=== PATIENT | male | born 1945 | race Caucasian/White ===

== ENCOUNTER 2024-01-06 15:13 | Inpatient (IN) | payer MEDICARE, OTHER, SELFPAY ==
[2024-01-06 11:39] VITALS: BP 114/74
[2024-01-06 12:00] VITALS: BP 119/73
[2024-01-06] MEDS: MORPHINE SULFATE 4 MG IV (12:07)
[2024-01-06] MEDS: NSS 1000 IV ×2 (12:08→17:18)
[2024-01-06 12:10] LABS: % Basophils 0.3 % (0-2); % Immature Granulocytes 0.6 % (0-0.5); % Lymphocytes 9.4 % (20.5-51.1); % Monocytes 6.2 % (1.7-9.3); % Neutrophils 83.5 % (42.2-75.2); Absolute Immature Granulocytes 0.1 10^3/uL (0-0.05); Absolute Monocytes 0.6 10^3/uL (0.1-0.6); Absolute Neutrophils 8.5 10^3/uL (1.4-6.5); Hematocrit 40.6 % (39.0-52.0); Hemoglobin 13.4 g/dL (13.0-18.0); Mean Corpuscular Hgb 28.8 pg (27.0-31.0); Mean Corpuscular Volume 87.3 fL (80.0-94.0); Mean Platelet Volume 10.7 fL (7.4-10.4); Nucleated Red Blood Cells % 0 % (-); Platelet Count 170 10^3/uL (130-400); Red Blood Cell Count 4.65 10^6/uL (4.70-6.10); Red Cell Dist. Width 14.3 % (11.5-14.5); White Blood Cell Count 10.2 10^3/uL (4.8-10.8)
[2024-01-06 12:20] LABS: ALT (SGPT) 31 U/L (0-50); AST (SGOT) 64 U/L (17-59); Albumin 4.4 g/dl (3.5-5.0); Alkaline Phosphatase 71 U/L (38-126); Blood Urea Nitrogen 41 mg/dl (9-20); Calcium 9.3 mg/dl (8.4-10.2); Carbon Dioxide 17 mmol/L (22-30); Chloride 110 mmol/L (98-107); Glucose 163 mg/dl (70-99); Potassium 4.2 mmol/L (3.5-5.1); Sodium 147 mmol/L (135-145); Total Bilirubin 1.1 mg/dl (0.2-1.3); Total Protein 7.2 g/dl (6.3-8.2); eGFR 43.83
[2024-01-06 12:34] LABS: COVID-19 Antigen Negative (Negative)
[2024-01-06 12:53] LABS: Lactic Acid 1.4 mmol/L (0.7-2.0)
[2024-01-06 13:00] VITALS: BP 111/70
[2024-01-06 13:09] LABS: Urine Albumin 2+ (Neg - Trace); Urine Bilirubin 1+ (Negative); Urine Character Clear (Clear); Urine Color Yellow; Urine Glucose 3+ (Negative); Urine Ketone 2+ (Negative); Urine Leukocyte 2+ (Negative); Urine Nitrite Negative (Negative); Urine Occult Blood 4+ (Negative); Urine Specific Gravity 1.025 (<1.030); Urine Urobilinogen Negative (Neg - 1+)
--- NOTE | 2024-01-06 13:16 | ED.GENMED ---
History of Present Illness
General
Chief Complaint: Urinary Symptoms
Time Seen by Provider: 01/06/24 11:42
History of Present Illness
History of Present Illness:
78-year-old male with history of diabetes, hyperlipidemia, GERD, hypertension, chronic indwelling Cummins presenting from nursing facility with concern for cloudy urine. Patient reports that his catheter was changed 2 days ago by the nurse. He notes
that he has been feeling generally unwell, nonproductive cough, shortness of breath he is abdominal pain. Denies fever. Denies any chest pain. Denies any vomiting. Denies additional acute medical complaints
Past History
Past History
ED Past Medical History: CAD, GERD, HTN, Hypercholesterolemia, NIDDM, [place], Psychiatric (Anxiety/depression) and Other (Cognitive impairment)
ED Past Surgical History: Cardiac
Social History
Tobacco: Non-smoker
Alcohol: None
Drug: None
Living: retirement
Phy Exam
Physical Exam
Physical Exam:
General: Well-appearing, no clinical signs of dehydration
HEENT: protecting airway
Neck: appears supple
CV: Tachycardic, regular rhythm, no evidence of cyanosis
Resp: No accessory muscle use, no increased work of breathing, lungs clear to auscultation bilaterally
Abd: Soft and non-distended, generalized nonfocal tenderness without rebound or guarding
Extremities: No deformities, no swelling
Neuro: alert, no focal neurologic deficit
: Indwelling Cummins, draining yellow urine
Rectal: deferred
Psych: Normal affect
Skin: Intact
Sepsis
Sepsis Screening
Sepsis Assessment: Sepsis Ruled Out
Sepsis Screen
Sepsis Screen: Sepsis Ruled Out
Date: 01/06/24
Time: 14:13
Course
Orders/Labs/Results
Orders:
Orders
01/06/24 11:42
EKG [Electrocardiogram (*1)] Urgent
Reason for Study: Tachycardia
EKG- Treatment ONCE
01/06/24 11:47
COVID-19 Antigen Urgent
Source: Nasal Swab
Complete Blood Count/With Diff Urgent
Comprehensive Metabolic Panel Urgent
Lactate Level [Lactic Acid] Urgent
Urinalysis Reflex To Culture Urgent
Date Specimen was Collected: 01/06/24
Time Specimen was Collected: 11:39
Urine Microscopic Reflex Cult Urgent
Influenza A+B Rapid Molecular Urgent
SANDY Source: Nasal Swab
Specimen Description:
Urine Culture Urgent
SANDY Source: U
Specimen Description:
Date Specimen was Collected: 01/06/24
Time Specimen was Collected: 11:39
01/06/24 11:54
0.9% Sodium Chloride 1000 ml [Nss] 1,000 ml IV BOLUS
01/06/24 11:55
CT Abd/pelvis W Iv Cont Urgent
Comment:
Reason For Exam: diffuse abdominal pain, possible sepsis
01/06/24 11:56
Morphine Sulfate 4 mg IV NOW STA
01/06/24 13:07
CR Chest - 2 Views Urgent
Comment:
Reason For Exam: cough
01/06/24 14:11
Cefepime HCl [Maxipime] 2,000 mg IV NOW STA
Abnormal Lab Results
01/06/24
11:47
RBC 4.65 L 10^6/uL
(4.70-6.10)
MPV 10.7 H fL
(7.4-10.4)
Abs Immat Gran (auto) 0.1 H 10^3/uL
(0-0.05)
Absolute Neuts (auto) 8.5 H 10^3/uL
(1.4-6.5)
Absolute Lymphs (auto) 1.0 L 10^3/uL
(1.2-3.4)
Immature Gran % 0.6 H %
(0-0.5)
Neutrophils % 83.5 H %
(42.2-75.2)
Lymphocytes % 9.4 L %
(20.5-51.1)
Sodium 147 H mmol/L
(135-145)
Chloride 110 H mmol/L
(98-107)
Carbon Dioxide 17 L mmol/L
(22-30)
BUN 41 H mg/dl
(9-20)
Creatinine 1.6 H mg/dL
(0.7-1.3)
Glucose 163 H mg/dl
(70-99)
AST 64 H U/L
(17-59)
Urine Ketones 2+ A
(Negative)
Ur Occult Blood Reflex 4+ A
(Negative)
Urine Bilirubin 1+ A
(Negative)
Leukocyte Esterase Rfl 2+ A
(Negative)
Urine RBC 40-50 A /HPF
(0-2)
Urine WBC (Reflex) >100 A /HPF
(0-5)
Urine Bacteria (Reflex) Many A
(Negative)
Urine Glucose 3+ A
(Negative)
Urine Albumin (Reflex) 2+ A
(Neg - Trace)
01/06/24 11:47
01/06/24 11:47
Vital Signs
Initial and Last Documented VS:
Initial Vital Signs
Temp Pulse Resp BP Pulse Ox
98.9 F 113 22 114/74 93
01/06/24 11:39 01/06/24 11:39 01/06/24 11:39 01/06/24 11:39 01/06/24 11:39
Last Documented Vital Signs
Temp Pulse Resp BP Pulse Ox
98.9 F 102 26 122/89 92
01/06/24 11:39 01/06/24 13:00 01/06/24 13:00 01/06/24 14:03 01/06/24 12:15
MDM/Problems Addressed
MDM/Problems Addressed:
78-year-old male with history of diabetes, hyperlipidemia, GERD, hypertension, chronic indwelling Cummins presenting with concern of cloudy urine, abdominal pain, cough. Vital signs on arrival significant for mildly low blood pressure and tachycardia.
On exam, patient is in no acute distress, does appear slightly uncomfortable secondary to pain. Urine appears clear, not cloudy, notes that his catheter was changed 2 days ago. UTI contributing to patient's symptoms, however patient also with
generalized abdominal pain, concern for acute intra-abdominal pathology given reproducible tenderness on palpation. Patient is meeting SIRS criteria. Will obtain laboratory analysis including lactic acid. Will obtain CT abdominal imaging.
Patient notes cough, will obtain chest x-ray imaging. Patient started on IV fluids, Toradol administered for pain.
13:30 -patient with leukocytosis, however normal lactic acid. Blood pressure stable. Without concern for severe sepsis or septic shock.
14:00 -CT of the abdomen shows evidence of bladder wall thickening, and urine is also consistent with infection. No additional acute findings. Chest x-ray without sign of pneumonia. On reassessment, patient's blood pressure has improved, remains
slightly tachycardic in remains uncomfortable from pain, slightly lethargic. Mild JACOB, dry mucous membranes. Will continue IV fluids. Feel warrants admission for continued treatment of his urinary tract infection and continued monitoring.
*EKG
Interpreted by ED Provider?: Yes
EKG Intrepretation Date: 01/06/24
EKG Intrepretation Time: 13:33
Interpretation: normal
Comparison EKG: no changes (03/09/22)
Heart Rate: 107
Rate: tachycardiac
Rhythm: sinus
[place]: normal axis
Interval: normal interval
QRS Pattern: normal QRS
Ischemia: non-specific ST changes
*Critical Care Note
Total Time (30-74mins, 75-104mins- exclusive of procedures): Not Applicable
ED Attending Note
-
Portions of this chart may have been created with voice recognition software.� Occasional wrong word or��sound alike� substitutions may have occurred due to the inherent limitations of voice recognition software.
Discharge Plan
Departure
Patient Disposition: Admit
Date of Disposition: 01/06/24
Time of Disposition: 14:12
Presentation/result/management discussed w/ accepting MD/DO: Hospitalist
Patient with high blood pressure during this ER visit?: No
Condition: Fair
Discharge Problem:
Urinary tract infection, Lethargic
Prescriptions:
No Action
acetaminophen 325 mg Tablet
650 mg PO Q4HPRN PRN (Reason: mild pain/temp>100f)
loperamide 2 mg Capsule
2 mg PO Q8HPRN PRN (Reason: loose stool)
aspirin 81 mg Tablet,Delayed Release (Dr/Ec)
81 mg PO DAILY
magnesium hydroxide [Milk of Magnesia] 400 mg/5 mL Suspension
30 ml PO DAILYPRN PRN (Reason: if no bm x 3 days)
bisacodyl [Dulcolax (bisacodyl)] 10 mg Suppository
10 mg [place] DAILYPRN PRN (Reason: if mom ineffective)
pantoprazole 40 mg Tablet,Delayed Release (Dr/Ec)
40 mg PO DAILY
Fleet Enema 19-7 gram/118 mL Enema
118 ml [place] DAILYPRN PRN (Reason: if dulcolax ineffective)
metoprolol succinate 25 mg Tablet Extended Release 24 Hr
25 mg PO DAILY
clopidogrel 75 mg Tablet
75 mg PO DAILY 30 Days Qty: 30 0RF
Rx Instructions:
resume 10/31
atorvastatin 20 mg tablet
20 mg PO QPM
metformin 500 mg tablet
500 mg PO BID
polyethylene glycol 3350 [Miralax] 17 gram Powder In Packet
17 g PO MOWEFR
triamcinolone acetonide 0.1 % cream
1 applic TOPICAL BID
Rx Instructions:
apply to b/l ears
ferrous sulfate 325 mg (65 mg iron) Tablet
325 mg PO DAILY
docusate sodium 100 mg Capsule
100 mg PO MoWeFr@0800,1900
dapagliflozin propanediol [Farxiga] 5 mg Tablet
5 mg PO DAILY
Emollient Base External Cream
1 applic topical TID
Rx Instructions:
apply to b/l ear
Referrals:
Ash Ying I., DO [Family Provider] -
Interventions
Interventions:
*Risk Screen - Suicide Last Done: 01/06/24 11:43
*General Assessment Last Done: 01/06/24 11:43
*Neglect/Abuse Screening Last Done: 01/06/24 11:43
*ED COVID-19 Vaccine History Last Done: 01/06/24 11:43
ED-Male Genitourinary Assessment Last Done: 01/06/24 11:44
Discharge Date and Time
Print Language: KITTITIAN
[2024-01-06 13:35] LABS: Urine Amorphous Seen
[2024-01-06 13:36] LABS: Urine Bacteria Many (Negative); Urine Red Blood Cell 40-50 /HPF (0-2); Urine White Cell >100 /HPF (0-5)
[2024-01-06 14:03] VITALS: BP 122/89
[2024-01-06] MEDS: MAXIPIME 2000 MG IV (14:15)
--- NOTE | 2024-01-06 14:15 | HPS.HSE ---
Family Physician
-
Family Physician: Ash Ying
Chief Complaint
-
Lethargy
History of Present Illness
Patient is a 78 y/o male past medical history of CAD, HTN, DM, CKD and Dementia who presents with lethargy. Patient is an unreliable historian. He was sent to the emergency department due lethargy with associated cloudy urine. Patient reports
lower abdominal discomfort. It is unclear when his Cummins catheter was last changed. He denies cough, or shortness of breath. He reports some intermittent diarrhea (none today). He denies nausea, or vomiting.
Medical History
Past Medical History
Past Medical History: Reports Other
Additional Past Medical History:
Coronary Artery Disease s/p CABG
Essential Hypertension
Hyperlipidemia
Diabetes Mellitus, Type II
CKD Stage 3A
Emphysema / Interstitial Lung Disease
Alzheimer's Dementia
Anxiety / Depression
Neurogenic Bladder with Chronic Cummins Catheter
GERD
Past Surgical History: Reports Other
Additional Past Surgical History:
CABG
Social History
Tobacco: Former Smoker
Living: [facility]
Family History
Family History: Unable to Obtain
Allergies / Home Medications
Allergies reflects when Allergies were last updated in [facility].
Home Medications with original date entered in [facility]
Allergy/Medication List:
Allergies
Allergy/AdvReac Type Severity Reaction Status Date / Time
No Known Allergies Allergy Verified 03/24/23 23:31
Home Medications
acetaminophen 325 mg tablet 650 mg PO Q4HPRN PRN mild pain/temp>100f 10/25/21
aspirin 81 mg tablet,delayed release 81 mg PO DAILY Blood clot prevention/tx 10/25/21
bisacodyl 10 mg rectal suppository (Dulcolax (bisacodyl)) 10 mg [place] DAILYPRN PRN if mom ineffective 10/25/21
loperamide 2 mg capsule 2 mg PO Q8HPRN PRN loose stool 10/25/21
magnesium hydroxide 400 mg/5 mL oral suspension (Milk of Magnesia) 30 ml PO DAILYPRN PRN if no bm x 3 days 10/25/21
metoprolol succinate 25 mg tablet,extended release 24 hr 25 mg PO DAILY Blood pressure 10/25/21
pantoprazole 40 mg tablet,delayed release 40 mg PO DAILY GERD 10/25/21
sodium phosphates 19 gram-7 gram/118 mL enema (Fleet Enema) 118 ml [place] DAILYPRN PRN if dulcolax ineffective 10/25/21
clopidogrel 75 mg tablet 75 mg PO DAILY Blood clot prevention/tx 30 days #30 tabs 10/30/21
atorvastatin 20 mg tablet 20 mg PO QPM High cholesterol 03/11/22
Emollient Base External Cream 1 applic topical TID b/l ear 03/24/23
dapagliflozin propanediol 5 mg tablet (Farxiga) 5 mg PO DAILY 03/24/23
docusate sodium 100 mg capsule 100 mg PO MoWeFr@0800,1900 03/24/23
ferrous sulfate 325 mg (65 mg iron) tablet 325 mg PO DAILY 03/24/23
metformin 500 mg tablet 500 mg PO BID 03/24/23
polyethylene glycol 3350 17 gram oral powder packet (Miralax) 17 g PO MOWEFR 03/24/23
triamcinolone acetonide 0.1 % topical cream 1 applic topical BID b/l ears 03/24/23
Review of Systems
-
Unable to obtain full review of systems at this time due to: Dementia (Patient is an unreliable historian, changing history frequently with different providers)
Physical Exam
Vital Signs
Vital Signs
Temp Pulse Resp BP Pulse Ox
98.9 F 102 26 122/89 92
01/06/24 11:39 01/06/24 13:00 01/06/24 13:00 01/06/24 14:03 01/06/24 12:15
Physical Exam
General: Comfortable and Conversant
HEENT: NormoCephalic, Anicteric and Atraumatic
Respiratory: Clear and Non Labored Respirations
Cardiac: S1/S2, Regular Rhythm and Tachycardia (Slightly)
GI: Soft and Tender (Suprapubic, and bilateral lower quadrants)
Genito-urinary: Cummins (Dark Urine)
Musculoskeletal: No Clubbing, No Cyanosis and No Edema
Skin: Warm and Dry
Neuro: Awake, Alert and Nonfocal/grossly intact
Psych: Calm
Laboratory Results
-
01/06/24 11:47
01/06/24 11:47
Laboratory Results
Lactic Acid 1.4 mmol/L (0.7-2.0) 01/06/24 11:47
Total Bilirubin 1.1 mg/dl (0.2-1.3) 01/06/24 11:47
AST 64 U/L (17-59) H 01/06/24 11:47
ALT 31 U/L (0-50) 01/06/24 11:47
Alkaline Phosphatase 71 U/L (38-126) 01/06/24 11:47
Data Reviewed
-
Diagnostic Radiology: Report Reviewed by me (CXR)
CT Scan: Report Reviewed by me
Lab Data: Labs Reviewed by me
Old Records: Reviewed
Impression/Plan
-
Sepsis secondary to Catheter-Associated Urinary Tract Infection
-Exchange Cummins catheter
-Continue ceftriaxone
-Await urine culture
Elevated Creatinine, suspect JACOB on CKD III
-Continue IVFs
-Hold Farxiga
-Recheck creatinine in AM
Hypernatremia
-Continue IVFs
-Recheck sodium in AM
Coronary Artery Disease s/p CABG
-Continue Aspirin and Plavix
Essential Hypertension
-Continue metoprolol with hold parameters
Hyperlipidemia
-Continue atorvastatin
Diabetes Mellitus, Type II
-Farxiga and Metformin on hold
-Monitor sugars and continue coverage insulin
Alzheimer's Dementia
-Monitor for mood/behavior changes during hospitalization
DVT proph: SC Heparin
Code Status: DNR per [place] Paperwork and POLST Form
--- NOTE | 2024-01-06 15:29 | W.PN.UPDATE ---
Update Note
Progress Note Update
This is an addendum to the H&P written by Sasha Harrison on 01/06/2024.� Patient seen and examined dependently with PA.�
78-year-old male past medical history of neurogenic bladder with chronic Cummins catheter, diabetes, CKD, hyperlipidemia, GERD, hypertension, presenting from nursing facility with suprapubic abdominal pain, cloudy urine, weakness, feeling unwell.� He
reports vomiting and had diarrhea but denies any diarrhea today.
Patient tachycardic and tachypneic.� Labs show hypernatremia, metabolic acidosis, likely JACOB on CKD.� Urinalysis indicative of UTI.� CT abdomen pelvis shows cystitis.� Chest x-ray unremarkable.
Patient septic secondary to catheter associated UTI.� Unclear when catheter was last exchanged.� IV fluids with normal saline, urine culture pending, ceftriaxone.� Exchange Cummins catheter.� Hold metformin and dapagliflozin.� Hold stool softeners.
[2024-01-06 16:19] VITALS: BMI 26.5
[2024-01-06 16:24] VITALS: BP 126/69
--- NOTE | 2024-01-06 16:57 | PTCARENOTE ---
Pt arrived to unit around 1600. Pt was a stand and pivot to the bed. Pt alert to self and place. Denies any pain. Pt's Cummins when he came up from the ER was very dirty. Cummins care done by RN and manager drilling SF. SHRESTHA. Pt is currently resting in bed. All
needs are meet at this time. Call schneider is within reach.
[2024-01-06 17:00] LABS: Glucose - Point of Care 127 mg/dl (70-99)
[2024-01-06] MEDS: NOVOLOG FLEXPEN-LOW RESISTANCE SC (17:01)
[2024-01-06] MEDS: HEPARIN 5000 UNITS SC (17:17)
[2024-01-06] MEDS: LIPITOR 20 MG PO (17:17)
[2024-01-06] MEDS: STERILE WATER FOR INJECTION 10 ML IV (21:49)
[2024-01-06] MEDS: ROCEPHIN 1000 MG IV (21:50)
[2024-01-06 21:58] LABS: Glucose - Point of Care 130 mg/dl (70-99)
[2024-01-06 23:00] VITALS: BP 121/84
[2024-01-07] MEDS: HEPARIN 5000 UNITS SC ×3 (01:18→17:54)
[2024-01-07] MEDS: NSS 1000 IV (03:13)
[2024-01-07 06:00] VITALS: BMI 27.1
[2024-01-07 07:14] LABS: Hematocrit 34.7 % (39.0-52.0); Hemoglobin 11.3 g/dL (13.0-18.0); Mean Corp Hgb Conc. 32.6 g/dL (33.0-37.0); Mean Corpuscular Hgb 27.9 pg (27.0-31.0); Mean Corpuscular Volume 85.7 fL (80.0-94.0); Mean Platelet Volume 10.6 fL (7.4-10.4); Platelet Count 147 10^3/uL (130-400); Red Blood Cell Count 4.05 10^6/uL (4.70-6.10); Red Cell Dist. Width 14.1 % (11.5-14.5); White Blood Cell Count 8.1 10^3/uL (4.8-10.8)
[2024-01-07 07:50] LABS: Blood Urea Nitrogen 34 mg/dl (9-20); Calcium 8.2 mg/dl (8.4-10.2); Carbon Dioxide 19 mmol/L (22-30); Chloride 112 mmol/L (98-107); Estimated Creatinine Clearance 41 ml/min; Glucose 118 mg/dl (70-99); Potassium 4.1 mmol/L (3.5-5.1); Sodium 149 mmol/L (135-145); eGFR 56.23
[2024-01-07 07:53] VITALS: BP 145/84
[2024-01-07 08:07] LABS: Glucose - Point of Care 127 mg/dl (70-99)
[2024-01-07] MEDS: NOVOLOG FLEXPEN-LOW RESISTANCE SC ×2 (08:58→15:00)
[2024-01-07] MEDS: PLAVIX 75 MG PO (09:00)
[2024-01-07] MEDS: ASPIR LOW (ENTERIC COATED) 81 MG PO (09:00)
[2024-01-07] MEDS: VISBIOME 1 CAP PO (09:00)
[2024-01-07] MEDS: PROTONIX 40 MG PO (09:00)
[2024-01-07] MEDS: D5W 1000 IV (09:04)
[2024-01-07] MEDS: TOPROL XL 25 MG PO (09:04)
--- NOTE | 2024-01-07 12:09 | W.PN.HOSP.TC ---
Today's Communication/Plan
-
Monitor vital signs see plan
Switch fluids to D5 water
Recheck sodium later today
Continue with antibiotics
Assessment / Plan
Assessment / Plan
General: Comfortable and Conversant
HEENT: NormoCephalic, Anicteric and Atraumatic
Respiratory: Clear and Non Labored Respirations
Cardiac: S1/S2, Regular Rhythm and Tachycardia (Slightly)
GI: Soft and Tender (Suprapubic, and bilateral lower quadrants)
Genito-urinary: Cummins (Dark Urine)
Musculoskeletal: No Clubbing, No Cyanosis and No Edema
Skin: Warm and Dry
Neuro: Awake, Alert and Nonfocal/grossly intact
Psych: Calm
Sepsis secondary to Catheter-Associated Urinary Tract Infection
-Exchanged Cummins catheter
-Continue ceftriaxone
-Await urine culture
Elevated Creatinine, suspect JACOB on CKD III
-Continue IVFs
-Hold Farxiga
Monitor creatinine
Hypernatremia
-Continue IVFs, switch to D5 water. Recheck sodium later today
Coronary Artery Disease s/p CABG
-Continue Aspirin and Plavix
Essential Hypertension
-Continue metoprolol with hold parameters
Hyperlipidemia
-Continue atorvastatin
Diabetes Mellitus, Type II
-Farxiga and Metformin on hold
-Monitor sugars and continue coverage insulin
Alzheimer's Dementia
-Monitor for mood/behavior changes during hospitalization
DVT proph: SC Heparin
Code Status: DNR per [place] Paperwork and POLST Form
I spent a total of 52 minutes with the patient or on the floor. More than 50% of this time involved counseling and coordination of care.
Anticipated Discharge: > 48 hours
Subjective/Interval History
-
Date of Service: January 07, 2024
denies pain
Objective Data
-
Labs:
Laboratory Results
01/07/24 01/07/24
06:41 16:00
WBC 8.1
Hgb 11.3 L
Hct 34.7 L
Plt Count 147
Sodium 149 H Pending
Potassium 4.1
Chloride 112 H
Carbon Dioxide 19 L
BUN 34 H
Creatinine 1.3
Glucose 118 H
Calcium 8.2 L
Vital Signs:
Vital Signs
Temp Pulse Resp BP Pulse Ox
97.2 F 92 18 145/84 97
01/07/24 07:58 01/07/24 09:04 01/07/24 07:58 01/07/24 09:04 01/07/24 07:58
I&O
01/06/24 01/07/24 01/08/24
06:59 06:59 06:59
Intake Total 250 / 250
Output Total 1075 / 1075
Balance -825 / -825
[2024-01-07 13:43] VITALS: BP 114/73
[2024-01-07 17:29] LABS: Glucose - Point of Care 160 mg/dl (70-99)
[2024-01-07] MEDS: NOVOLOG FLEXPEN-LOW RESISTANCE 1 UNITS SC (18:02)
[2024-01-07] MEDS: LIPITOR 20 MG PO (18:02)
[2024-01-07 18:48] LABS: Sodium 142 mmol/L (135-145)
--- NOTE | 2024-01-07 20:34 | W.PN.UPDATE ---
Update Note
Progress Note Update
This morning Na level was 149, patient was started on D5 70cc/hr. Repeated Na level this afternoon is 142. Will hold D5 IVF for now and will check Na level in am.
[2024-01-07] MEDS: ROCEPHIN 1000 MG IV (21:34)
[2024-01-07] MEDS: STERILE WATER FOR INJECTION 10 ML IV (21:34)
[2024-01-07 21:37] LABS: Glucose - Point of Care 108 mg/dl (70-99)
[2024-01-07 23:50] VITALS: BP 143/82
[2024-01-08] MEDS: HEPARIN 5000 UNITS SC ×3 (01:35→17:27)
[2024-01-08] MEDS: TYLENOL 650 MG PO (01:39)
[2024-01-08 06:00] VITALS: BMI 27.5
[2024-01-08 07:38] LABS: % Basophils 0.2 % (0-2); % Eosinophils 3.9 % (0-6); % Immature Granulocytes 0.3 % (0-0.5); % Lymphocytes 26.1 % (20.5-51.1); % Monocytes 9.1 % (1.7-9.3); % Neutrophils 60.4 % (42.2-75.2); Absolute Eosinophils 0.2 10^3/uL (0-0.7); Absolute Lymphocytes 1.6 10^3/uL (1.2-3.4); Absolute Monocytes 0.6 10^3/uL (0.1-0.6); Absolute Neutrophils 3.7 10^3/uL (1.4-6.5); Hematocrit 32.8 % (39.0-52.0); Hemoglobin 10.9 g/dL (13.0-18.0); Mean Corp Hgb Conc. 33.2 g/dL (33.0-37.0); Mean Corpuscular Hgb 28.7 pg (27.0-31.0); Mean Corpuscular Volume 86.3 fL (80.0-94.0); Mean Platelet Volume 10.6 fL (7.4-10.4); Nucleated Red Blood Cells % 0 % (-); Platelet Count 145 10^3/uL (130-400); Red Cell Dist. Width 13.9 % (11.5-14.5); White Blood Cell Count 6.2 10^3/uL (4.8-10.8)
[2024-01-08 07:47] VITALS: BP 120/76
[2024-01-08 07:56] LABS: ALT (SGPT) 57 U/L (0-50); AST (SGOT) 61 U/L (17-59); Alkaline Phosphatase 86 U/L (38-126); Blood Urea Nitrogen 26 mg/dl (9-20); Carbon Dioxide 20 mmol/L (22-30); Chloride 111 mmol/L (98-107); Estimated Creatinine Clearance 44 ml/min; Glucose 105 mg/dl (70-99); Potassium 3.7 mmol/L (3.5-5.1); Sodium 144 mmol/L (135-145); Total Bilirubin 0.5 mg/dl (0.2-1.3); Total Protein 5.7 g/dl (6.3-8.2); eGFR > 60.00
[2024-01-08] MEDS: PLAVIX 75 MG PO (07:57)
[2024-01-08] MEDS: TOPROL XL 25 MG PO (07:57)
[2024-01-08] MEDS: ASPIR LOW (ENTERIC COATED) 81 MG PO (07:57)
[2024-01-08] MEDS: VISBIOME 1 CAP PO (07:57)
[2024-01-08] MEDS: PROTONIX 40 MG PO (07:57)
[2024-01-08 08:23] LABS: Glucose - Point of Care 111 mg/dl (70-99)
[2024-01-08] MEDS: NOVOLOG FLEXPEN-LOW RESISTANCE SC ×2 (08:29→13:07)
--- NOTE | 2024-01-08 10:49 | W.PN.HOSP.TC ---
Today's Communication/Plan
-
monitor vitals
see plan
follow urine cx
monitor sodium
Assessment / Plan
Assessment / Plan
General: Comfortable and Conversant
HEENT: NormoCephalic, Anicteric and Atraumatic
Respiratory: Clear and Non Labored Respirations
Cardiac: S1/S2, Regular Rhythm and Tachycardia (Slightly)
GI: Soft and Tender (Suprapubic, and bilateral lower quadrants)
Genito-urinary: Cummins
Musculoskeletal: No Clubbing, No Cyanosis and No Edema
Skin: Warm and Dry
Neuro: Awake, Alert and Nonfocal/grossly intact
Psych: Calm
Sepsis secondary to Catheter-Associated Urinary Tract Infection
-Exchanged Cummins catheter
-Continue ceftriaxone
-Await urine culture growing gram neg rods
Elevated Creatinine, suspect JACOB on CKD III
improved
-Hold Farxiga
Monitor creatinine
Hypernatremia
Na was 149; was on d5W; now Na 144
Coronary Artery Disease s/p CABG
-Continue Aspirin and Plavix
Essential Hypertension
-Continue metoprolol with hold parameters
Hyperlipidemia
-Continue atorvastatin
Diabetes Mellitus, Type II
-Farxiga and Metformin on hold
-Monitor sugars and continue coverage insulin
mild LFT elevation
monitor
mild anemia; likely anemia of chronic disease
Alzheimer's Dementia
-Monitor for mood/behavior changes during hospitalization
DVT proph: SC Heparin
Code Status: DNR per [place] Paperwork and POLST Form
Anticipated Discharge: > 48 hours
Subjective/Interval History
-
Date of Service: January 08, 2024
denies nausea
Objective Data
-
Labs:
Laboratory Results
01/08/24
06:35
WBC 6.2
Hgb 10.9 L
Hct 32.8 L
Plt Count 145
Sodium 144
Potassium 3.7
Chloride 111 H
Carbon Dioxide 20 L
BUN 26 H
Creatinine 1.2
Glucose 105 H
Calcium 8.0 L
Total Bilirubin 0.5
AST 61 H
ALT 57 H
Alkaline Phosphatase 86
Vital Signs:
Vital Signs
Temp Pulse Resp BP Pulse Ox
97.7 F 75 18 120/76 100
01/08/24 07:47 01/08/24 07:57 01/08/24 07:47 01/08/24 07:57 01/08/24 07:47
I&O
01/07/24 01/08/24 01/09/24
06:59 06:59 06:59
Intake Total 250 / 250 1530 / 1530
Output Total 1075 / 1075 900 / 900
Balance -825 / -825 630 / 630
[2024-01-08 12:20] LABS: Glucose - Point of Care 135 mg/dl (70-99)
--- NOTE | 2024-01-08 12:39 | CM ---
Reviewed chart, placed a call to Judy in admissions at [facility] who confirmed that patient has a bed hold. Per PT patient will need skilled before going back to LTC. No Auth will be needed.
Plan: Case management will continue to follow and assist with discharge planning. Skilled at [facility] when medically stable.
[2024-01-08 15:30] VITALS: BP 117/72
[2024-01-08 16:33] LABS: Glucose - Point of Care 154 mg/dl (70-99)
[2024-01-08] MEDS: NOVOLOG FLEXPEN-LOW RESISTANCE 1 UNITS SC (17:29)
[2024-01-08] MEDS: LIPITOR 20 MG PO (17:30)
[2024-01-08 21:08] LABS: Glucose - Point of Care 204 mg/dl (70-99)
[2024-01-08] MEDS: FLUSH (NSS) 1 FLUSH IV (21:21)
[2024-01-08] MEDS: ROCEPHIN 1000 MG IV (21:21)
[2024-01-08] MEDS: STERILE WATER FOR INJECTION 10 ML IV (21:21)
[2024-01-08 23:40] VITALS: BP 106/65
[2024-01-09] MEDS: HEPARIN 5000 UNITS SC ×3 (00:15→17:51)
[2024-01-09 06:00] VITALS: BMI 27.4
[2024-01-09 07:00] VITALS: BP 124/74
[2024-01-09 08:01] LABS: Glucose - Point of Care 139 mg/dl (70-99)
[2024-01-09 08:15] LABS: % Basophils 0.3 % (0-2); % Eosinophils 3.8 % (0-6); % Immature Granulocytes 0.6 % (0-0.5); % Lymphocytes 27.3 % (20.5-51.1); % Monocytes 8.7 % (1.7-9.3); % Neutrophils 59.3 % (42.2-75.2); Absolute Eosinophils 0.3 10^3/uL (0-0.7); Absolute Lymphocytes 1.9 10^3/uL (1.2-3.4); Absolute Monocytes 0.6 10^3/uL (0.1-0.6); Absolute Neutrophils 4.1 10^3/uL (1.4-6.5); Hematocrit 32.6 % (39.0-52.0); Hemoglobin 10.9 g/dL (13.0-18.0); Mean Corp Hgb Conc. 33.4 g/dL (33.0-37.0); Mean Corpuscular Hgb 28.3 pg (27.0-31.0); Mean Corpuscular Volume 84.7 fL (80.0-94.0); Mean Platelet Volume 10.5 fL (7.4-10.4); Nucleated Red Blood Cells % 0 % (-); Platelet Count 162 10^3/uL (130-400); Red Blood Cell Count 3.85 10^6/uL (4.70-6.10); Red Cell Dist. Width 13.4 % (11.5-14.5); White Blood Cell Count 6.9 10^3/uL (4.8-10.8)
[2024-01-09] MEDS: NOVOLOG FLEXPEN-LOW RESISTANCE SC ×2 (08:21→18:38)
[2024-01-09 08:29] LABS: ALT (SGPT) 47 U/L (0-50); AST (SGOT) 33 U/L (17-59); Alkaline Phosphatase 90 U/L (38-126); Blood Urea Nitrogen 22 mg/dl (9-20); Calcium 7.9 mg/dl (8.4-10.2); Carbon Dioxide 21 mmol/L (22-30); Chloride 110 mmol/L (98-107); Estimated Creatinine Clearance 48 ml/min; Glucose 140 mg/dl (70-99); Potassium 3.4 mmol/L (3.5-5.1); Sodium 144 mmol/L (135-145); Total Bilirubin 0.3 mg/dl (0.2-1.3); Total Protein 5.6 g/dl (6.3-8.2); eGFR > 60.00
[2024-01-09] MEDS: VISBIOME 1 CAP PO (09:55)
[2024-01-09] MEDS: PLAVIX 75 MG PO (09:55)
[2024-01-09] MEDS: PROTONIX 40 MG PO (09:55)
[2024-01-09] MEDS: TOPROL XL 25 MG PO (09:55)
[2024-01-09] MEDS: ASPIR LOW (ENTERIC COATED) 81 MG PO (09:55)
[2024-01-09] MEDS: KCL 20 MEQ PO (09:56)
--- NOTE | 2024-01-09 11:35 | W.PN.HOSP.TC ---
Today's Communication/Plan
-
Monitor vital signs see plan
Replete potassium
Continue with antibiotics pending urine culture
Assessment / Plan
Assessment / Plan
General: Comfortable and Conversant
HEENT: NormoCephalic, Anicteric and Atraumatic
Respiratory: Clear and Non Labored Respirations
Cardiac: S1/S2, Regular Rhythm and Tachycardia (Slightly)
GI: Soft and Tender (Suprapubic, and bilateral lower quadrants)
Genito-urinary: Cummins
Musculoskeletal: No Clubbing, No Cyanosis and No Edema
Neuro: Awake, Alert and Nonfocal/grossly intact
Psych: Calm
Sepsis secondary to Catheter-Associated Urinary Tract Infection
-Exchanged Cummins catheter
-Continue ceftriaxone
-Await urine culture growing gram neg rods
Elevated Creatinine, suspect JACOB on CKD III
improved
-Hold Farxiga
Monitor creatinine
Hypokalemia
replete
Hypernatremia
Na was 149; was on d5W; now Na 144
Coronary Artery Disease s/p CABG
-Continue Aspirin and Plavix
Essential Hypertension
-Continue metoprolol with hold parameters
Hyperlipidemia
-Continue atorvastatin
Diabetes Mellitus, Type II
-Farxiga and Metformin on hold
-Monitor sugars and continue coverage insulin
mild LFT elevation
monitor
mild anemia; likely anemia of chronic disease
Alzheimer's Dementia
-Monitor for mood/behavior changes during hospitalization
DVT proph: SC Heparin
Code Status: DNR per [place] Paperwork and POLST Form
Anticipated Discharge: Within 24 hours
Subjective/Interval History
-
Date of Service: January 09, 2024
denies pain
Objective Data
-
Labs:
Laboratory Results
01/09/24
07:25
WBC 6.9
Hgb 10.9 L
Hct 32.6 L
Plt Count 162
Sodium 144
Potassium 3.4 L
Chloride 110 H
Carbon Dioxide 21 L
BUN 22 H
Creatinine 1.1
Glucose 140 H
Calcium 7.9 L
Total Bilirubin 0.3
AST 33
ALT 47
Alkaline Phosphatase 90
Vital Signs:
Vital Signs
Temp Pulse Resp BP Pulse Ox
98.5 F 82 16 124/74 97
01/09/24 07:00 01/09/24 07:00 01/09/24 07:00 01/09/24 07:00 01/09/24 07:00
I&O
01/08/24 01/09/24 01/10/24
06:59 06:59 06:59
Intake Total 1530 / 1530 280 / 280
Output Total 900 / 900 950 / 950
Balance 630 / 630 -670 / -670
[2024-01-09 12:50] LABS: Glucose - Point of Care 219 mg/dl (70-99)
[2024-01-09] MEDS: NOVOLOG FLEXPEN-LOW RESISTANCE 2 UNITS SC (12:55)
[2024-01-09] MEDS: INVANZ 60 MG IV (14:40)
[2024-01-09 15:00] VITALS: BP 128/67
[2024-01-09] MEDS: LIPITOR 20 MG PO (17:51)
[2024-01-09 18:37] LABS: Glucose - Point of Care 127 mg/dl (70-99)
[2024-01-09 21:28] LABS: Glucose - Point of Care 173 mg/dl (70-99)
[2024-01-09 23:56] VITALS: BP 141/83
[2024-01-10] MEDS: HEPARIN 5000 UNITS SC ×3 (00:31→16:57)
[2024-01-10 06:00] VITALS: BMI 27.5
[2024-01-10 07:55] VITALS: BP 124/70
[2024-01-10] MEDS: PLAVIX 75 MG PO (07:55)
[2024-01-10] MEDS: VISBIOME 1 CAP PO (07:55)
[2024-01-10] MEDS: PROTONIX 40 MG PO (07:55)
[2024-01-10] MEDS: ASPIR LOW (ENTERIC COATED) 81 MG PO (07:55)
[2024-01-10] MEDS: TOPROL XL 25 MG PO (07:55)
[2024-01-10 08:25] LABS: Glucose - Point of Care 150 mg/dl (70-99)
[2024-01-10 08:29] LABS: % Basophils 0.4 % (0-2); % Eosinophils 4.8 % (0-6); % Immature Granulocytes 0.8 % (0-0.5); % Monocytes 7.5 % (1.7-9.3); % Neutrophils 58.5 % (42.2-75.2); Absolute Eosinophils 0.4 10^3/uL (0-0.7); Absolute Immature Granulocytes 0.1 10^3/uL (0-0.05); Absolute Lymphocytes 2.1 10^3/uL (1.2-3.4); Absolute Monocytes 0.6 10^3/uL (0.1-0.6); Absolute Neutrophils 4.5 10^3/uL (1.4-6.5); Hematocrit 31.2 % (39.0-52.0); Hemoglobin 10.5 g/dL (13.0-18.0); Mean Corp Hgb Conc. 33.7 g/dL (33.0-37.0); Mean Corpuscular Hgb 27.7 pg (27.0-31.0); Mean Corpuscular Volume 82.3 fL (80.0-94.0); Mean Platelet Volume 10.4 fL (7.4-10.4); Nucleated Red Blood Cells % 0 % (-); Platelet Count 189 10^3/uL (130-400); Red Blood Cell Count 3.79 10^6/uL (4.70-6.10); Red Cell Dist. Width 13.4 % (11.5-14.5); White Blood Cell Count 7.7 10^3/uL (4.8-10.8)
[2024-01-10] MEDS: NOVOLOG FLEXPEN-LOW RESISTANCE 1 UNITS SC ×2 (08:39→17:05)
[2024-01-10 08:46] LABS: ALT (SGPT) 43 U/L (0-50); AST (SGOT) 35 U/L (17-59); Albumin 2.9 g/dl (3.5-5.0); Alkaline Phosphatase 84 U/L (38-126); Blood Urea Nitrogen 18 mg/dl (9-20); Calcium 8.2 mg/dl (8.4-10.2); Carbon Dioxide 22 mmol/L (22-30); Chloride 109 mmol/L (98-107); Estimated Creatinine Clearance 53 ml/min; Glucose 137 mg/dl (70-99); Potassium 3.7 mmol/L (3.5-5.1); Sodium 140 mmol/L (135-145); Total Bilirubin 0.2 mg/dl (0.2-1.3); Total Protein 5.5 g/dl (6.3-8.2); eGFR > 60.00
--- NOTE | 2024-01-10 11:01 | W.PN.HOSP.TC ---
Today's Communication/Plan
-
Monitor vital signs
see plan
Continue with ertapenem
ID evaluation
PT/OT
Assessment / Plan
Assessment / Plan
General: Comfortable and Conversant
HEENT: NormoCephalic, Anicteric and Atraumatic
Respiratory: Clear and Non Labored Respirations
Cardiac: S1/S2, Regular Rhythm
GI: Soft and Tender (Suprapubic)
Genito-urinary: Cummins
Musculoskeletal: No Edema
Neuro: Awake, Alert and Nonfocal/grossly intact
Psych: Calm
Sepsis secondary to Catheter-Associated Urinary Tract Infection
conmplicated UTI
-Exchanged Cummins catheter this admission
urine cx with ESBL klebsiella; on ertapenem; ID evaluation
Elevated Creatinine, suspect JACOB on CKD III
improved
-Hold Farxiga
Monitor creatinine
Hypokalemia
replete
Hypernatremia
now resolved; Na 140 today
Coronary Artery Disease s/p CABG
-Continue Aspirin and Plavix
Essential Hypertension
-Continue metoprolol with hold parameters
Hyperlipidemia
-Continue atorvastatin
Diabetes Mellitus, Type II
-Farxiga and Metformin on hold
-Monitor sugars and continue coverage insulin
mild LFT elevation
resolved
mild anemia; likely anemia of chronic disease
Alzheimer's Dementia
-Monitor for mood/behavior changes during hospitalization
DVT proph: SC Heparin
Code Status: DNR per [place] Paperwork and POLST Form
Anticipated Discharge: 24 - 48 hours
Subjective/Interval History
-
Date of Service: January 10, 2024
denies pain
Objective Data
-
Labs:
Laboratory Results
01/10/24
07:47
WBC 7.7
Hgb 10.5 L
Hct 31.2 L
Plt Count 189
Sodium 140
Potassium 3.7
Chloride 109 H
Carbon Dioxide 22
BUN 18
Creatinine 1.0
Glucose 137 H
Calcium 8.2 L
Total Bilirubin 0.2
AST 35
ALT 43
Alkaline Phosphatase 84
Vital Signs:
Vital Signs
Temp Pulse Resp BP Pulse Ox
97.9 F 74 20 124/70 96
01/10/24 07:55 01/10/24 07:55 01/10/24 07:55 01/10/24 07:55 01/10/24 07:55
I&O
01/09/24 01/10/24 01/11/24
06:59 06:59 06:59
Intake Total 280 / 280 880 / 880
Output Total 950 / 950 1050 / 1050
Balance -670 / -670 -170 / -170
[2024-01-10 13:36] LABS: Glucose - Point of Care 133 mg/dl (70-99)
[2024-01-10] MEDS: NOVOLOG FLEXPEN-LOW RESISTANCE SC (13:42)
[2024-01-10] MEDS: INVANZ 60 MG IV (15:03)
--- NOTE | 2024-01-10 15:45 | CON.ID ---
Consultation
-
Date/Time Consultation Requested: 01/10/2024 0823
Date/Time Consultation Performed: 01/10/2024 1530
Requesting Provider: Dr. Car
Performing Provider: Dr. Wen
Reason for Consultation: Complicated urinary tract infection
Chief Complaint / Past History
History of Present Illness
Dipak Fabian is a 78-year-old man being evaluated at the request of Dr. Car in regards to positive urine culture and suspected complicated urinary tract infection. History is obtained from chart review, along with patient interview. Additional
history was obtained from the hospital EMR system.
The patient has a significant past medical history of DM and CAD. Additionally, he has a chronic Cummins catheter which he states has been in place for approximately the past year secondary to urinary retention.
According to reviewed notes the patient recently had a Cummins catheter change 2 days prior to admission, and then those 2 days his urine was noted to be much more cloudy. Additionally he was noted to have increasing lethargy and lower abdominal
discomfort, and he was thus to the emergency room for further evaluation. Initial workup did not reveal the presence of a leukocytosis, but he did have a left shift. Additionally, he was noted to have hypernatremia and JACOB on initial lab work.
Urinalysis was performed which revealed significant pyuria, and urine cultures are now revealing the presence of ESBL Klebsiella pneumonia. Infectious Diseases is asked to comment upon further antimicrobial therapy.
At present, the patient denies any fevers or chills, but reports feeling 'unwell' with fatigue and generalized malaise. He denies any urinary pain or lower abdominal discomfort.
Past History
Additional Past Medical History:
CAD; Hx ID
GERD
HTN
Dyslipidemia
DM
Anxiety/depression
Cognitive impairment
Past Surgical History: Cholecystectomy
Allergy History:
No Known Allergies Allergy (Verified 03/24/23 23:31)
Medications Reviewed: Yes
Current Antibiotics:
Ertapenem
Social History
Tobacco: Former Smoker
Alcohol: None
Drug: None
Personal: Single
Living: Jail
Employment: Not Employed
Family History
Family History: Not Pertinent
Review of Systems
Vital Signs
Temp Pulse Resp BP Pulse Ox
97.9 F 74 20 124/70 96
01/10/24 07:55 01/10/24 07:55 01/10/24 07:55 01/10/24 07:55 01/10/24 07:55
Physical Exam
Physical Exam
Constitutional: No Acute Distress, Comfortable and Non-toxic
Eyes: Pupils Equal, Pupils Round, No Conjunctival Hemorrhage and Sclera Anicteric
Oral: No Thrush and No Ulcers
Cardiovascular: Regular Rate and S1/S2; Negative S3/S4
Pulmonary: Clear and Non Labored
Gastrointestinal: Soft and Non Tender
Genito-Urinary: Cummins and Clear Urine; Negative Turbid Urine or Hematuria
Extremities: Negative Edema, Cyanosis or Erythema
Skin: Warm and Dry; Negative Rash or Jaundice
Neurological: Awake and Alert
Psychological: Calm
.
Lab / Diagnostic Study Results
01/10/24 07:47
01/10/24 07:47
Abs Immat Gran (auto) 0.1 10^3/uL (0-0.05) H 01/10/24 07:47
Absolute Neuts (auto) 4.5 10^3/uL (1.4-6.5) 01/10/24 07:47
Absolute Lymphs (auto) 2.1 10^3/uL (1.2-3.4) 01/10/24 07:47
Absolute Monos (auto) 0.6 10^3/uL (0.1-0.6) 01/10/24 07:47
Absolute Basos (auto) 0.0 10^3/uL (0-0.2) 01/10/24 07:47
Immature Gran % 0.8 % (0-0.5) H 01/10/24 07:47
Neutrophils % 58.5 % (42.2-75.2) 01/10/24 07:47
Lymphocytes % 28.0 % (20.5-51.1) 01/10/24 07:47
Monocytes % 7.5 % (1.7-9.3) 01/10/24 07:47
Eosinophils % 4.8 % (0-6) 01/10/24 07:47
Basophils % 0.4 % (0-2) 01/10/24 07:47
Lactic Acid 1.4 mmol/L (0.7-2.0) 01/06/24 11:47
Ur Squamous Epith Cells 3-5 /LPF (Few) 01/06/24 11:47
Microbiology Results
Micro:
01/06/24 11:47 Urine Culture - Final
Urine Klebsiella pneumoniae-ESBL
01/07/24 12:37 MRSA Screen - Final
Nose No Methicillin Resistant Staphylococcus aureus isolated.
01/06/24 11:47 Influenza Types A & B (JACKI) - Final
Nasal Swab Negative for Influenza A & B, NAAT
Negative results must be combined with clinical observations
and patient history.
Nucleic Acid Amplification test (NAAT)performed on the
[employer] platform.
Imaging:
01/06/2024 CT abdomen/pelvis with IV contrast: Prior cholecystectomy noted. Virtually completely empty urinary bladder with Cummins catheter in place. Moderate diffuse wall thickening noted which may be secondary to underdistention or cystitis.
Assessment / Plan
Bacteriuria; suspected CAUTI (POA)
MDRO (ESBL Klebsiella pneumoniae)
Chronic Cummins catheter 2*retention
CAD; Hx ID
GERD
HTN
Dyslipidemia
DM
Anxiety/depression
Cognitive impairment
Impression:
At present, difficult to ascertain whether there truly is an infection, although change in mental status may be a manifestation of a UTI.
Additionally, patient noted to be hyponatremic at presentation and may be related to decreased oral fluid intake.
Significant resistance noted on isolate.
Would continue with a 10 to 14-day course of ertapenem.
Encourage fluid intake for now, and when back at facility.
Given chronic nature of Cummins catheter and its necessity secondary to retention, suspect that UTIs will be recurrent.
[2024-01-10 15:55] VITALS: BP 127/63
[2024-01-10] MEDS: LIPITOR 20 MG PO (16:57)
[2024-01-10 17:04] LABS: Glucose - Point of Care 177 mg/dl (70-99)
[2024-01-10 21:41] LABS: Glucose - Point of Care 125 mg/dl (70-99)
[2024-01-10 23:25] VITALS: BP 135/70
[2024-01-11] MEDS: HEPARIN 5000 UNITS SC ×3 (00:11→17:11)
[2024-01-11 05:53] VITALS: BMI 27.2
[2024-01-11 06:58] LABS: % Basophils 0.4 % (0-2); % Eosinophils 4.5 % (0-6); % Lymphocytes 31.3 % (20.5-51.1); % Monocytes 6.7 % (1.7-9.3); % Neutrophils 56.1 % (42.2-75.2); Absolute Eosinophils 0.4 10^3/uL (0-0.7); Absolute Immature Granulocytes 0.1 10^3/uL (0-0.05); Absolute Lymphocytes 2.6 10^3/uL (1.2-3.4); Absolute Monocytes 0.6 10^3/uL (0.1-0.6); Absolute Neutrophils 4.6 10^3/uL (1.4-6.5); Hematocrit 31.4 % (39.0-52.0); Hemoglobin 10.4 g/dL (13.0-18.0); Mean Corp Hgb Conc. 33.1 g/dL (33.0-37.0); Mean Corpuscular Hgb 27.4 pg (27.0-31.0); Mean Corpuscular Volume 82.6 fL (80.0-94.0); Mean Platelet Volume 9.9 fL (7.4-10.4); Nucleated Red Blood Cells % 0 % (-); Platelet Count 198 10^3/uL (130-400); Red Cell Dist. Width 13.6 % (11.5-14.5); White Blood Cell Count 8.2 10^3/uL (4.8-10.8)
[2024-01-11 07:23] LABS: ALT (SGPT) 78 U/L (0-50); AST (SGOT) 70 U/L (17-59); Albumin 3.1 g/dl (3.5-5.0); Alkaline Phosphatase 86 U/L (38-126); Blood Urea Nitrogen 19 mg/dl (9-20); Calcium 8.1 mg/dl (8.4-10.2); Carbon Dioxide 24 mmol/L (22-30); Chloride 108 mmol/L (98-107); Estimated Creatinine Clearance 44 ml/min; Glucose 129 mg/dl (70-99); Potassium 3.7 mmol/L (3.5-5.1); Sodium 143 mmol/L (135-145); Total Bilirubin 0.2 mg/dl (0.2-1.3); eGFR > 60.00
[2024-01-11 07:36] VITALS: BP 131/64
[2024-01-11 07:51] LABS: Glucose - Point of Care 136 mg/dl (70-99)
[2024-01-11] MEDS: ASPIR LOW (ENTERIC COATED) 81 MG PO (09:03)
[2024-01-11] MEDS: PROTONIX 40 MG PO (09:03)
[2024-01-11] MEDS: TOPROL XL 25 MG PO (09:03)
[2024-01-11] MEDS: NOVOLOG FLEXPEN-LOW RESISTANCE SC ×3 (09:03→17:10)
[2024-01-11] MEDS: PLAVIX 75 MG PO (09:04)
[2024-01-11] MEDS: VISBIOME 1 CAP PO (09:04)
[2024-01-11 11:45] LABS: Glucose - Point of Care 138 mg/dl (70-99)
--- NOTE | 2024-01-11 13:25 | W.PN.ID1 ---
Date of Service
Date of Service: January 11, 2024
Today's Communication
Continue antibiotics.
Assessment / Plan
Bacteriuria; CAUTI (POA)
MDRO (ESBL Klebsiella pneumoniae)
Chronic Cummins catheter 2*retention
CAD; Hx UT
GERD
HTN
Dyslipidemia
DM
Anxiety/depression
Cognitive impairment
Impression:
Would complete a 10 to 14-day course of ertapenem.
Encourage fluid intake for now, and when back at facility.
Given chronic nature of Cummins catheter and its necessity secondary to retention, suspect that UTIs will be recurrent.
����������������������������������������������������������
Chief Complaint
-: UTI
Subjective / Review of Systems
Review of Systems: No Fever and No Chills
Vital Signs / Physical Exam
Vital Signs
Vital Signs
Temp Pulse Resp BP Pulse Ox
97.8 F 83 24 131/64 97
01/11/24 07:36 01/11/24 07:36 01/11/24 07:36 01/11/24 07:36 01/11/24 07:36
Physical Exam
Constitutional: No Acute Distress, Comfortable, Chronically Ill and Non-toxic
Eyes: Sclera Anicteric
Cardiovascular: S1/S2; Negative S3/S4
Pulmonary: Non Labored
Gastrointestinal: Non Tender
Genito-Urinary: Cummins and Clear Urine; Negative Hematuria
Extremities: Negative Edema
Psychological: Calm
Objective Data
Lab Data
Lab Results
01/11/24 06:23
01/11/24 06:23
Estimated Creat Clear 44 ml/min 01/11/24 06:23
Lactic Acid 1.4 mmol/L (0.7-2.0) 01/06/24 11:47
Total Bilirubin 0.2 mg/dl (0.2-1.3) 01/11/24 06:23
AST 70 U/L (17-59) H 01/11/24 06:23
ALT 78 U/L (0-50) H 01/11/24 06:23
Alkaline Phosphatase 86 U/L (38-126) 01/11/24 06:23
Most recent labs reviewed.
Micro Results:
01/06/24 11:47 Urine Culture - Final
Urine Klebsiella pneumoniae-ESBL
01/07/24 12:37 MRSA Screen - Final
Nose No Methicillin Resistant Staphylococcus aureus isolated.
01/06/24 11:47 Influenza Types A & B (JACKI) - Final
Nasal Swab Negative for Influenza A & B, NAAT
Negative results must be combined with clinical observations
and patient history.
Nucleic Acid Amplification test (NAAT)performed on the
[employer] platform.
Imaging:
01/06/2024 CT abdomen/pelvis with IV contrast: Prior cholecystectomy noted. Virtually completely empty urinary bladder with Cummins catheter in place. Moderate diffuse wall thickening noted which may be secondary to underdistention or cystitis.
--- NOTE | 2024-01-11 13:51 | W.PN.HOSP.TC ---
Today's Communication/Plan
-
DC
Assessment / Plan
Assessment / Plan
Sepsis secondary to Catheter-Associated Urinary Tract Infection
complicated UTI
-Exchanged Cummins catheter this admission
- urine cx with ESBL klebsiella; on ertapenem; ID recs 10-14 day of Ertapenem
Elevated Creatinine, suspect JACOB on CKD III
improved
-Hold Farxiga with UTI
Monitor creatinine
Coronary Artery Disease s/p CABG
-Continue Aspirin and Plavix
Essential Hypertension
-Continue metoprolol with hold parameters
Hyperlipidemia
-Continue atorvastatin
Diabetes Mellitus, Type II
-Farxiga and Metformin on hold
-Monitor sugars and continue coverage insulin
mild LFT elevation
resolved
mild anemia; likely anemia of chronic disease
Alzheimer's Dementia
-Monitor for mood/behavior changes during hospitalization
DVT proph: SC Heparin
Code Status: DNR per [place] Paperwork and POLST Form
Medically stable for discharge back to his facility.
Discussed with case management
Anticipated Discharge: Today
Subjective/Interval History
-
Date of Service: January 11, 2024
Voicing no specific complaints.
Denies fever chills.
Denies any nausea vomiting.
Objective Data
-
Labs:
Laboratory Results
01/11/24
06:23
WBC 8.2
Hgb 10.4 L
Hct 31.4 L
Plt Count 198
Sodium 143
Potassium 3.7
Chloride 108 H
Carbon Dioxide 24
BUN 19
Creatinine 1.2
Glucose 129 H
Calcium 8.1 L
Total Bilirubin 0.2
AST 70 H
ALT 78 H
Alkaline Phosphatase 86
Vital Signs:
Vital Signs
Temp Pulse Resp BP Pulse Ox
97.8 F 83 24 131/64 97
01/11/24 07:36 01/11/24 07:36 01/11/24 07:36 01/11/24 07:36 01/11/24 07:36
I&O
01/10/24 01/11/24 01/12/24
06:59 06:59 06:59
Intake Total 880 / 880 720 / 720
Output Total 1050 / 1050 750 / 750
Balance -170 / -170 -30 / -30
Review of Systems
-
Unable to obtain full review of systems at this time due to: Dementia
Physical Exam
-
General: Comfortable
HEENT: Moist Mucous Membranes
Respiratory: Clear to Auscultation
Cardiac: Regular Rhythm and S1/S2
GI: Soft and Nontender
Neuro: Awake, Alert and Oriented (self)
Psych: Calm and Confused; Negative Agitated
Data Reviewed
-
Labs: Labs Reviewed by me
--- NOTE | 2024-01-11 14:26 | PTCARENOTE ---
patient cooperative, denies complaints, tolerating diet, transfers with assist x2 with rolling walker to bsc, vss, will continue to monitor.
[2024-01-11] MEDS: INVANZ 60 MG IV (14:31)
--- NOTE | 2024-01-11 15:32 | CM ---
Addendum entered by Melissa Dooley 01/11/24 16:06:
Clinicals and midline info faxed to via Care port
Original Note:
CM reviewed pt with Dr Blum- ready for dc
Update to [facility], accepted for readmission
Plan for IV ertapenem/midline
Update to sister marky/Eli
IMM verbally reviewed
She declined copy
Transport forms completed
Discharge Disposition- return [facility] via BLS
Phone- [phone] Fax- [phone]
[2024-01-11 16:59] LABS: Glucose - Point of Care 147 mg/dl (70-99)
[2024-01-11] MEDS: LIPITOR 20 MG PO (17:11)
[2024-01-11 18:30] VITALS: BP 133/73
== END 2024-01-11 19:32 | DRG 698 ==
LOC: 3 WEST ACU 15:13
PROVIDERS: Internal Medicine; Physician Assistant Medical; ADMITTING PHYSICIAN Hospitalist; ATTENDING PHYSICIAN Internal Medicine; CONSULT PHYSICIAN Internal Medicine Infectious Disease; EMERGENCY PHYSICIAN Student in an Organized Health Care Education/Training Program; FAMILY PHYSICIAN Internal Medicine
DX: T83.518A Infection and inflammatory reaction due to other urinary catheter, initial encounter (principal); A41.9 Sepsis, unspecified organism; N39.0 Urinary tract infection, site not specified; F02.83 Dementia in other diseases classified elsewhere, unspecified severity, with mood disturbance; F02.84 Dementia in other diseases classified elsewhere, unspecified severity, with anxiety; Y84.6 Urinary catheterization as the cause of abnormal reaction of the patient, or of later complication, without mention of misadventure at the time of the procedure; I25.10 Atherosclerotic heart disease of native coronary artery without angina pectoris; Z95.1 Presence of aortocoronary bypass graft; I12.9 Hypertensive chronic kidney disease with stage 1 through stage 4 chronic kidney disease, or unspecified chronic kidney disease; N18.31 Chronic kidney disease, stage 3a; E78.00 Pure hypercholesterolemia, unspecified; G30.9 Alzheimer's disease, unspecified; F32.A Depression, unspecified; Z66 Do not resuscitate; Z11.52 Encounter for screening for COVID-19
CPT/HCPCS: 71046; 74177; 80048; 80053; 81003; 81015; 82962; 83036; 83605; 84295; 85025; 85027; 87070; 87077; 87086; 87186; 87502; 87811; 93005; 96361; 96374; 96375; 97116; 97163; 97166; 97530; 99285; J1335; Q9967

== ENCOUNTER 2024-03-06 19:28 | Emergency (ER) | payer MEDICARE, OTHER, SELFPAY ==
[2024-03-06 19:31] VITALS: BP 128/89
[2024-03-06 19:32] VITALS: BP 128/89
[2024-03-06 20:00] VITALS: BP 123/64
[2024-03-06 21:00] VITALS: BP 131/68
--- NOTE | 2024-03-06 21:12 | ED.GENMED ---
History of Present Illness
General
Chief Complaint: Catheter/Tube Problem
Source: half-way (Spoke with Elise)
Exam Limitations: dementia
Time Seen by Provider: 03/06/24 20:55
History of Present Illness
History of Present Illness:
This is a 78 year old male that is brought in by ambulance with his nguyen catheter being out. Called and spoke with Elise the nurse. States that patient catheter was clogged and it was removed but the nursing staff was unable to get the catheter
back in. States that he was c/o of some abd discomfort. States that he is on Tamiflu as some of there residents have the flu. Denies any fever, chills, chest pain, SOB, nausea, vomiting, diarrhea, headache, dizziness.
Past History
Past History
ED Past Medical History: CAD, GERD, HTN, Hypercholesterolemia, NIDDM, [place], Psychiatric (Anxiety/depression) and Other (Cognitive impairment)
ED Past Surgical History: Cardiac (CABG, Stents X 3)
Social History
Tobacco: Non-smoker
Alcohol: None
Drug: None
Personal:
Living: half-way
Review of Systems
Review of Systems
Unable to obtain full review of systems at this time due to: dementia
Other source history: half-way
All Other Systems: ROS reviewed and negative except as documented in HPI and ROS
Constitutional: Reports no symptoms; Denies fever or chills
EENT: Reports no symptoms
Respiratory: Reports no symptoms; Denies cough or trouble breathing
Cardiac: Reports no symptoms; Denies chest pain
ABD/GI: Reports abdominal pain; Denies nausea, vomiting or diarrhea
: Reports other (Nguyen catheter was removed and needs replacement)
Musculoskeletal: Reports no symptoms
Neurological: Reports no symptoms; Denies dizzy or headache
Psychiatric: Reports no symptoms
Phy Exam
General Physical Exam
General Presentation: no apparent distress
General age: appears stated age
General Skin: warm and dry
General Habitus: elderly
General Mental: usual mental status
General Hydration: appears well hydrated
ENT Exam
ENT Exam: TM's normal, pharynx normal and neck supple
Eye Exam
Eye Exam: EOMI
Cardiovascular Exam
Cardiovascular Exam: regular rate/rhythm, no edema and normal peripheral pulses
Pulmonary Exam
Pulmonary Exam: lungs clear, no respiratory distress, no rales, chest non tender, no crackles, no rhonchi, no wheezing and no cough
Gastrointestinal Exam
Gastrointestinal Exam: normal bowel sounds, soft, no organomegaly, no pulsatile mass, non distended and tender (Slight left lower abd tenderness with palpation)
Musculoskeletal Exam
Musculoskeletal Exam: no edema
Skin Exam
Skin Exam: normal color, warm/dry, no rash and no petechia
Psychiatric Exam
Psychiatric Exam: normal mood/affect
Course
Orders/Labs/Results
Orders:
Orders
03/06/24 21:11
Nguyen Placement- Treatment ONCE
Reason for insertion: Chronic Nguyen on Admit
03/06/24 21:17
Complete Blood Count/With Diff Urgent
Comprehensive Metabolic Panel Urgent
Urine Culture Reflexed from UA [Urinalysis Reflex To Culture] Urgent
Date Specimen was Collected: 03/06/24
Time Specimen was Collected: 21:13
Urine Microscopic Reflex Cult Urgent
Urine Culture Urgent
SANDY Source: U
Specimen Description:
Date Specimen was Collected: 03/06/24
Time Specimen was Collected: 21:13
03/06/24 21:52
CefTRIAXone [Rocephin] 1,000 mg IV NOW STA
Abnormal Lab Results
03/06/24
21:17
RBC 3.90 L 10^6/uL
(4.70-6.10)
Hgb 10.7 L g/dL
(13.0-18.0)
Hct 32.9 L %
(39.0-52.0)
MCHC 32.5 L g/dL
(33.0-37.0)
Eosinophils % 7.4 H %
(0-6)
BUN 22 H mg/dl
(9-20)
Glucose 113 H mg/dl
(70-99)
Ur Occult Blood Reflex 4+ A
(Negative)
Leukocyte Esterase Rfl 2+ A
(Negative)
Urine RBC 16-20 A /HPF
(0-2)
Urine WBC (Reflex) >100 A /HPF
(0-5)
Urine Bacteria (Reflex) Few A
(Negative)
Urine Albumin (Reflex) 1+ A
(Neg - Trace)
03/06/24 21:17
03/06/24 21:17
H/H low but improved from prior labs, Dehydration. Hyperglycemia. Urine positive for infection.
Vital Signs
Initial and Last Documented VS:
Initial Vital Signs
Temp Pulse Resp BP Pulse Ox
97.8 F 77 16 128/89 96
03/06/24 19:31 03/06/24 19:31 03/06/24 19:31 03/06/24 19:31 03/06/24 19:31
Last Documented Vital Signs
Temp Pulse Resp BP Pulse Ox
97.8 F 77 16 131/68 97
03/06/24 19:31 03/06/24 19:31 03/06/24 19:31 03/06/24 21:00 03/06/24 21:30
MDM/Problems Addressed
Differential Diagnosis Includes:
UTI, Nguyen replacement.
MDM/Problems Addressed:
Called and spoke with Elise the nurse. Told that the patient catheter was removed as it was clogged. Nursing staff was unable to place catheter again. Patient c/o some abd discomfort.
Will check labs. and replace Catheter.
Urine is positive for infection. Will give IV antibiotics and a prescription for the half-way. Follow up with the family doctor. Patient to increase his water intake. Return with any concerns. .
Chronic conditions affecting care:
Indwelling Nguyen catheter, Dementia
Acute Exacerbation and/or Progression of Chronic Illness:
NA
*Pulse Oximetry
Patient hypoxic: no
*EKG
Interpreted by ED Provider?: NA
Rate: EKG- N/A
*Livestock Sales Representative Interpretation
Rate: Livestock Sales Representative- N/A
*Critical Care Note
Total Time (30-74mins, 75-104mins- exclusive of procedures): Not Applicable
ED Attending Note
-
Portions of this chart may have been created with voice recognition software.� Occasional wrong word or��sound alike� substitutions may have occurred due to the inherent limitations of voice recognition software.
Discharge Plan
Departure
Patient Disposition: Alf/SNF
Date of Disposition: 03/06/24
Time of Disposition: 22:02
Patient with high blood pressure during this ER visit?: Yes
Condition: Good
Covid-19: Not Applicable
Discharge Problem:
Urinary tract infection, Encounter for Nguyen catheter replacement
Instructions: How to Care for Your Nguyen Catheter, Male, BLOOD PRESSURE, Urinary Tract Infection - Men
Prescriptions:
New
cefdinir 300 mg capsule
300 mg PO BID Qty: 14 0RF
No Action
acetaminophen 325 mg Tablet
650 mg PO Q4HPRN PRN (Reason: mild pain/temp>100f)
loperamide 2 mg Capsule
2 mg PO Q8HPRN PRN (Reason: loose stool)
aspirin 81 mg Tablet,Delayed Release (Dr/Ec)
81 mg PO DAILY
magnesium hydroxide [Milk of Magnesia] 400 mg/5 mL Suspension
30 ml PO DAILYPRN PRN (Reason: if no bm x 3 days)
bisacodyl [Dulcolax (bisacodyl)] 10 mg Suppository
10 mg DC DAILYPRN PRN (Reason: if mom ineffective)
pantoprazole 40 mg Tablet,Delayed Release (Dr/Ec)
40 mg PO DAILY
Fleet Enema 19-7 gram/118 mL Enema
118 ml DC DAILYPRN PRN (Reason: if dulcolax ineffective)
metoprolol succinate 25 mg Tablet Extended Release 24 Hr
25 mg PO DAILY
clopidogrel 75 mg Tablet
75 mg PO DAILY 30 Days Qty: 30 0RF
Rx Instructions:
resume 10/31
atorvastatin 20 mg tablet
20 mg PO QPM
metformin 500 mg tablet
500 mg PO BID
polyethylene glycol 3350 [Miralax] 17 gram Powder In Packet
17 g PO MOWEFR
triamcinolone acetonide 0.1 % cream
1 applic TOPICAL BID
Rx Instructions:
apply to b/l ears
ferrous sulfate 325 mg (65 mg iron) Tablet
325 mg PO DAILY
docusate sodium 100 mg Capsule
100 mg PO MoWeFr@0800,1900
Emollient Base External Cream
1 applic topical TID
Rx Instructions:
apply to b/l ear
Ertapenem [Invanz] 1000 MG
0.9% Sodium Chloride [Nss] 50 ML
120 mls/hr IV Q24H
For 7 more doses
Ordered By: Beka Gonzalez MD
Last Taken: Unknown
Referrals:
Ash Ying I., DO [Family Provider] - Follow up in 2-3 days
Activity Restrictions/Additional Instructions:
As discussed, patient catheter has been replaced. Patient has a urinary tract infection. He was given IV antibiotics here and a prescription was sent back with patient. Patient to increase his water intake to 8-8oz glasses daily. Follow up with the
family doctor for recheck. IF YOU HAVE ANY OTHER CONCERNS PLEASE RETURN TO THE EMERGENCY ROOM
Interventions
Interventions:
*Risk Screen - Suicide Last Done: 03/06/24 19:31
*General Assessment Last Done: 03/06/24 19:31
*Neglect/Abuse Screening Last Done: 03/06/24 19:31
*ED COVID-19 Vaccine History Last Done: 03/06/24 19:31
GL-Bncgcs-Xhjmmikpfm Assessment Last Done: 03/06/24 19:41
ED-Male Genitourinary Assessment Last Done: 03/06/24 19:55
Discharge Date and Time
Print Language: BENGALI
[2024-03-06 21:26] LABS: % Basophils 0.4 % (0-2); % Eosinophils 7.4 % (0-6); % Immature Granulocytes 0.3 % (0-0.5); % Lymphocytes 34.7 % (20.5-51.1); % Monocytes 7.6 % (1.7-9.3); % Neutrophils 49.6 % (42.2-75.2); Absolute Eosinophils 0.5 10^3/uL (0-0.7); Absolute Lymphocytes 2.4 10^3/uL (1.2-3.4); Absolute Monocytes 0.5 10^3/uL (0.1-0.6); Absolute Neutrophils 3.4 10^3/uL (1.4-6.5); Hematocrit 32.9 % (39.0-52.0); Hemoglobin 10.7 g/dL (13.0-18.0); Mean Corp Hgb Conc. 32.5 g/dL (33.0-37.0); Mean Corpuscular Hgb 27.4 pg (27.0-31.0); Mean Corpuscular Volume 84.4 fL (80.0-94.0); Mean Platelet Volume 9.8 fL (7.4-10.4); Nucleated Red Blood Cells % 0 % (-); Platelet Count 164 10^3/uL (130-400); Red Cell Dist. Width 13.6 % (11.5-14.5); White Blood Cell Count 6.9 10^3/uL (4.8-10.8)
[2024-03-06 21:34] LABS: Urine Albumin 1+ (Neg - Trace); Urine Bilirubin Negative (Negative); Urine Character Slightly Cloudy (Clear); Urine Color Yellow; Urine Glucose Negative (Negative); Urine Ketone Negative (Negative); Urine Leukocyte 2+ (Negative); Urine Nitrite Negative (Negative); Urine Occult Blood 4+ (Negative); Urine Urobilinogen Negative (Neg - 1+)
[2024-03-06 21:47] LABS: Urine Squamous Cell 0-2 /LPF (Few)
[2024-03-06 21:48] LABS: Urine Bacteria Few (Negative); Urine Red Blood Cell 16-20 /HPF (0-2); Urine White Cell >100 /HPF (0-5)
[2024-03-06 21:51] LABS: ALT (SGPT) 21 U/L (0-50); AST (SGOT) 19 U/L (17-59); Albumin 3.8 g/dl (3.5-5.0); Alkaline Phosphatase 61 U/L (38-126); Blood Urea Nitrogen 22 mg/dl (9-20); Calcium 8.7 mg/dl (8.4-10.2); Carbon Dioxide 26 mmol/L (22-30); Chloride 102 mmol/L (98-107); Glucose 113 mg/dl (70-99); Potassium 3.8 mmol/L (3.5-5.1); Sodium 138 mmol/L (135-145); Total Bilirubin 0.2 mg/dl (0.2-1.3); Total Protein 6.5 g/dl (6.3-8.2); eGFR > 60.00
[2024-03-06] MEDS: ROCEPHIN 1000 MG IV (22:16)
[2024-03-06] MEDS: NSS 500 IV (22:20)
== END 2024-03-06 22:58 ==
LOC: EMR 19:28
PROVIDERS: Clinical Nurse Specialist Family Health; EMERGENCY PHYSICIAN Emergency Medicine; FAMILY PHYSICIAN Internal Medicine
DX: N39.0 Urinary tract infection, site not specified (principal); Z46.6 Encounter for fitting and adjustment of urinary device; I25.10 Atherosclerotic heart disease of native coronary artery without angina pectoris; K21.9 Gastro-esophageal reflux disease without esophagitis; I10 Essential (primary) hypertension; E78.00 Pure hypercholesterolemia, unspecified; E11.9 Type 2 diabetes mellitus without complications; I25.2 Old myocardial infarction; F03.90 Unspecified dementia, unspecified severity, without behavioral disturbance, psychotic disturbance, mood disturbance, and anxiety; Z95.1 Presence of aortocoronary bypass graft; Z95.5 Presence of coronary angioplasty implant and graft
CPT/HCPCS: 99283; 51702; 96374; 96361; 80053; 81003; 81015; 85025; 87086

== ENCOUNTER 2024-05-31 10:58 | Inpatient (IN) | payer MEDICARE, OTHER, SELFPAY ==
[2024-05-31] VITALS (9 sets, daily range): BP systolic 126–164; BP diastolic 76–95; BMI 28.5; BMI 27.1
--- NOTE | 2024-05-31 08:39 | ED.GENMED ---
History of Present Illness
General
Chief Complaint: Fall
Time Seen by Provider: 05/31/24 08:15
History of Present Illness
History of Present Illness:
78-year-old male with history of CKD, dementia, hypertension, diabetes, chronic indwelling Cummins catheter presenting to the emergency department after a fall. Patient presents from assisted living where he allegedly got up to answer his door prior
to arrival and fell. He denies prodromal symptoms such as chest pain, difficulty breathing, lightheadedness. He notes that he fell onto his right hip with subsequent pain, unable to ambulate. Denies head injury or loss of consciousness. Patient
somewhat limited historian given underlying dementia. Denies any recent fever or illness. Denies additional acute medical complaints
Past History
Past History
ED Past Medical History: CAD, GERD, HTN, Hypercholesterolemia, NIDDM, [place], Psychiatric (Anxiety/depression) and Other (Cognitive impairment)
ED Past Surgical History: Cardiac (CABG, Stents X 3)
Social History
Tobacco: Non-smoker
Alcohol: None
Drug: None
Personal:
Living: group home
Phy Exam
Physical Exam
Physical Exam:
General: Well-appearing, no clinical signs of dehydration, nontoxic and in no acute distress
HEENT: protecting airway
Neck: appears supple
CV: Normal heart rate, regular rhythm
Resp: No accessory muscle use, no increased work of breathing, lungs clear to auscultation bilaterally
Abd: Soft and non-distended, no tenderness to palpation
Extremities: Slightly shortened right lower extremity, internally rotated. Distal sensation and pulses intact. No erythema or warmth. Tenderness to the hip joint with limited range of motion secondary to pain
Neuro: alert, no focal neurologic deficit
: deferred
Rectal: deferred
Psych: Normal affect
Skin: Intact
Course
Orders/Labs/Results
Orders:
Orders
05/31/24 08:24
Morphine Sulfate 2 mg IV NOW STA
Hip, Right 2-3 Views [CR Hip - RT w/wo Pel 2-3 Vw*] Urgent
Comment:
Reason For Exam: fall, shortened
Include a pelvis x-ray?: Yes
05/31/24 08:25
CT Head W/o Iv Contrast Urgent
Comment:
Reason For Exam: fall, unwitnessed
05/31/24 08:28
Complete Blood Count/With Diff Urgent
Comprehensive Metabolic Panel Urgent
Prothrombin Time Urgent
Abnormal Lab Results
05/31/24
08:28
RBC 4.21 L 10^6/uL
(4.70-6.10)
Hgb 12.2 L g/dL
(13.0-18.0)
Hct 35.9 L %
(39.0-52.0)
Abs Immat Gran (auto) 0.1 H 10^3/uL
(0-0.05)
Absolute Neuts (auto) 6.8 H 10^3/uL
(1.4-6.5)
BUN 24 H mg/dl
(9-20)
Glucose 169 H mg/dl
(70-99)
05/31/24 08:28
05/31/24 08:28
Vital Signs
Initial and Last Documented VS:
Initial Vital Signs
Temp Pulse Resp BP Pulse Ox
97.9 F 99 18 132/92 95
05/31/24 08:05 05/31/24 08:05 05/31/24 08:05 05/31/24 08:05 05/31/24 08:05
Last Documented Vital Signs
Temp Pulse Resp BP Pulse Ox
97.9 F 99 18 132/92 95
05/31/24 08:05 05/31/24 08:05 05/31/24 08:05 05/31/24 08:05 05/31/24 08:05
MDM/Problems Addressed
MDM/Problems Addressed:
78-year-old male with history of hypertension, diabetes, dementia presenting after a fall with right hip deformity. Vital signs are normal.
On exam, patient is resting comfortably, no acute distress. Patient does arrive with deformity to the right lower extremity with concern for hip fracture. No present neurovascular compromise. No additional signs of trauma on physical exam.
Patient denying any additional symptoms, denies any prodromal symptoms to the fall, without concern for near syncope or syncope. Plan for x-ray imaging of the right hip. Given underlying dementia, unwitnessed fall, will obtain CT brain imaging
09:35 -x-ray confirms an acute nondisplaced intertrochanteric fracture on the right. Orthopedics made aware. Patient updated. Labs unremarkable and CT brain negative. Plan for admission.
*Critical Care Note
Total Time (30-74mins, 75-104mins- exclusive of procedures): Not Applicable
ED Attending Note
-
Portions of this chart may have been created with voice recognition software.� Occasional wrong word or��sound alike� substitutions may have occurred due to the inherent limitations of voice recognition software.
Discharge Plan
Departure
Prescriptions:
No Action
acetaminophen 325 mg Tablet
650 mg PO Q4HPRN PRN (Reason: mild pain/temp>100f)
loperamide 2 mg Capsule
2 mg PO Q8HPRN PRN (Reason: loose stool)
aspirin 81 mg Tablet,Delayed Release (Dr/Ec)
81 mg PO DAILY
magnesium hydroxide [Milk of Magnesia] 400 mg/5 mL Suspension
30 ml PO DAILYPRN PRN (Reason: if no bm x 3 days)
bisacodyl [Dulcolax (bisacodyl)] 10 mg Suppository
10 mg KS DAILYPRN PRN (Reason: if mom ineffective)
pantoprazole 40 mg Tablet,Delayed Release (Dr/Ec)
40 mg PO DAILY
Fleet Enema 19-7 gram/118 mL Enema
118 ml KS DAILYPRN PRN (Reason: if dulcolax ineffective)
metoprolol succinate 25 mg Tablet Extended Release 24 Hr
25 mg PO DAILY
clopidogrel 75 mg Tablet
75 mg PO DAILY 30 Days Qty: 30 0RF
Rx Instructions:
resume 10/31
atorvastatin 20 mg tablet
20 mg PO QPM
metformin 500 mg tablet
500 mg PO BID
polyethylene glycol 3350 [Miralax] 17 gram Powder In Packet
17 g PO MOWEFR
triamcinolone acetonide 0.1 % cream
1 applic TOPICAL BID
Rx Instructions:
apply to b/l ears
ferrous sulfate 325 mg (65 mg iron) Tablet
325 mg PO DAILY
docusate sodium 100 mg Capsule
100 mg PO MoWeFr@0800,1900
Emollient Base External Cream
1 applic topical TID
Rx Instructions:
apply to b/l ear
Ertapenem [Invanz] 1000 MG
0.9% Sodium Chloride [Nss] 50 ML
120 mls/hr IV Q24H
For 7 more doses
Ordered By: Beka Gonzalez MD
Last Taken: Unknown
cefdinir 300 mg capsule
300 mg PO BID Qty: 14 0RF
Referrals:
Ash Ying I., DO [Family Provider] -
Interventions
Interventions:
*Risk Screen - Suicide Last Done: 05/31/24 08:05
*General Assessment Last Done: 05/31/24 08:05
*Neglect/Abuse Screening Last Done: 05/31/24 08:05
*ED COVID-19 Vaccine History Last Done: 05/31/24 08:05
ED-Musculoskeletal Assessment Last Done: 05/31/24 08:19
ED- Neurological Assessment Last Done: 05/31/24 08:19
ED-Skin Assessment Last Done: 05/31/24 08:19
Discharge Date and Time
Print Language: SETSWANA
[2024-05-31 08:40] LABS: % Basophils 0.4 % (0-2); % Eosinophils 4.9 % (0-6); % Immature Granulocytes 0.5 % (0-0.5); % Neutrophils 64.2 % (42.2-75.2); Absolute Eosinophils 0.5 10^3/uL (0-0.7); Absolute Immature Granulocytes 0.1 10^3/uL (0-0.05); Absolute Lymphocytes 2.7 10^3/uL (1.2-3.4); Absolute Monocytes 0.4 10^3/uL (0.1-0.6); Absolute Neutrophils 6.8 10^3/uL (1.4-6.5); Hematocrit 35.9 % (39.0-52.0); Hemoglobin 12.2 g/dL (13.0-18.0); Mean Corpuscular Volume 85.3 fL (80.0-94.0); Mean Platelet Volume 9.9 fL (7.4-10.4); Nucleated Red Blood Cells % 0 % (-); Platelet Count 203 10^3/uL (130-400); Red Blood Cell Count 4.21 10^6/uL (4.70-6.10); Red Cell Dist. Width 13.4 % (11.5-14.5); White Blood Cell Count 10.5 10^3/uL (4.8-10.8)
[2024-05-31 08:45] LABS: INR 0.99; PT 13.4 Sec (11.4-14.6)
[2024-05-31 08:48] LABS: ALT (SGPT) 27 U/L (0-50); AST (SGOT) 23 U/L (17-59); Albumin 4.1 g/dl (3.5-5.0); Alkaline Phosphatase 78 U/L (38-126); Blood Urea Nitrogen 24 mg/dl (9-20); Calcium 9.3 mg/dl (8.4-10.2); Carbon Dioxide 25 mmol/L (22-30); Chloride 106 mmol/L (98-107); Estimated Creatinine Clearance 44 ml/min; Glucose 169 mg/dl (70-99); Potassium 4.3 mmol/L (3.5-5.1); Sodium 140 mmol/L (135-145); Total Bilirubin 0.7 mg/dl (0.2-1.3); eGFR > 60.00
[2024-05-31] MEDS: MORPHINE SULFATE 2 MG IV (09:25)
--- NOTE | 2024-05-31 10:11 | HPS.HSE ---
Family Physician
-
Family Physician: Ash Ying
Chief Complaint
-
right hip pain
History of Present Illness
Mr. Dipak Fabian is a 78 yo man with hx dementia, CAD (s/p CABG), GERD, HTN, HLD, chronic indwelling nguyen catheter presents to the ER post fall with resulting right hip pain.
Patient has a history of dementia and is an unreliable historian (told me he fell while walking his granddaughter to school). He lives at [facility] and fell there this morning. He denies chest pain or shortness of breath. No recent
fevers/chills. No abdominal pain.
Medical History
Past Medical History
Past Medical History: Reports Other
Additional Past Medical History:
Coronary Artery Disease s/p CABG
Essential Hypertension
Hyperlipidemia
Diabetes Mellitus, Type II
CKD Stage 3A
Emphysema / Interstitial Lung Disease
Alzheimer's Dementia
Anxiety / Depression
Neurogenic Bladder with Chronic Nguyen Catheter
GERD
Past Surgical History: Reports Other
Additional Past Surgical History:
CABG
Social History
Tobacco: Former Smoker
Living: Custodial
Family History
Family History: Unable to Obtain
Allergies / Home Medications
Allergies reflects when Allergies were last updated in [employer].
Home Medications with original date entered in [employer]
Allergy/Medication List:
Allergies
Allergy/AdvReac Type Severity Reaction Status Date / Time
No Known Allergies Allergy Verified 03/24/23 23:31
Home Medications
acetaminophen 325 mg tablet 650 mg PO Q4HPRN PRN mild pain/temp>100f 10/25/21
aspirin 81 mg tablet,delayed release 81 mg PO DAILY Blood clot prevention/tx 10/25/21
bisacodyl 10 mg rectal suppository (Dulcolax (bisacodyl)) 10 mg NH DAILYPRN PRN if mom ineffective 10/25/21
loperamide 2 mg capsule 2 mg PO Q8HPRN PRN loose stool 10/25/21
magnesium hydroxide 400 mg/5 mL oral suspension (Milk of Magnesia) 30 ml PO DAILYPRN PRN if no bm x 3 days 10/25/21
metoprolol succinate 25 mg tablet,extended release 24 hr 25 mg PO DAILY Blood pressure 10/25/21
pantoprazole 40 mg tablet,delayed release 40 mg PO DAILY GERD 10/25/21
sodium phosphates 19 gram-7 gram/118 mL enema (Fleet Enema) 118 ml NH DAILYPRN PRN if dulcolax ineffective 10/25/21
clopidogrel 75 mg tablet 75 mg PO DAILY Blood clot prevention/tx 30 days #30 tabs 10/30/21
atorvastatin 20 mg tablet 20 mg PO QPM High cholesterol 03/11/22
docusate sodium 100 mg capsule 100 mg PO MoWeFr@0800,1900 Constipation 03/24/23
emollient 1 applic topical TID b/l ear ##0 03/24/23
ferrous sulfate 325 mg (65 mg iron) tablet 325 mg PO DAILY Supplement 03/24/23
metformin 500 mg tablet 500 mg PO BID diabetes 03/24/23
polyethylene glycol 3350 17 gram oral powder packet (Miralax) 17 g PO MOWEFR constipation 03/24/23
triamcinolone acetonide 0.1 % topical cream 1 applic topical BID b/l ears 03/24/23
Review of Systems
-
History Source: Patient
A 12 point ROS was completed and negative except as noted: Yes
Physical Exam
Vital Signs
Vital Signs
Temp Pulse Resp BP Pulse Ox
97.9 F 103 23 142/76 96
05/31/24 08:05 05/31/24 09:45 05/31/24 09:45 05/31/24 09:00 05/31/24 09:45
Physical Exam
General: No Apparent Distress
HEENT: PERRLA
Respiratory: Clear; No Wheezes
Cardiac: S1/S2 and Regular Rhythm
GI: Soft and Non Tender
Musculoskeletal: No Edema and Other (RLE externally rotated )
Skin: Warm and Dry; No Rash
Neuro: Awake and Alert; No Oriented (thinks he is in [place]. Able to give a history but stating he lives with daughter when he lives at [facility] )
Psych: Calm and Apparent Dementia
Laboratory Results
-
05/31/24 08:28
05/31/24 08:28
Laboratory Results
PT 13.4 Sec (11.4-14.6) 05/31/24 08:28
INR 0.99 05/31/24 08:28
Total Bilirubin 0.7 mg/dl (0.2-1.3) 05/31/24 08:28
AST 23 U/L (17-59) 05/31/24 08:28
ALT 27 U/L (0-50) 05/31/24 08:28
Alkaline Phosphatase 78 U/L (38-126) 05/31/24 08:28
Data Reviewed
-
Diagnostic Radiology: Report Reviewed by me
Lab Data: Labs Reviewed by me
Impression/Plan
-
Mr. Dipak Fabian is a 78 yo man with hx CAD (s/p CABG), GERD, HTN, HLD, chronic indwelling nguyen catheter presents to the ER post fall with resulting right hip pain.
Triage VS: T 97.9, P 99, RR 18, BP 132/92, SpO2 95%
LABS: WBC 10.5, Hg 12.2, PLT 203, Na 140, K+ 4.3, CO2 25, Cr 1.2, Glucose 169, Liver enzymes WNL
HEAD CT
IMPRESSION:
1. No CT evidence for acute intracranial hemorrhage.
2. SEVERE WHITE MATTER LEUKOARAIOSIS in the frontal and parietal lobes.
3. 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
4. Moderate diffuse cerebral and cerebellar volume loss.
5. Moderate left maxillary sinusitis.
Hip X-Ray
IMPRESSION:
1. ACUTE NONDISPLACED INTERTROCHANTERIC FRACTURE of the RIGHT PROXIMAL FEMUR.
2. Minimal bilateral osteoarthritis of the hips.
3. Severe calcific atherosclerotic plaque in the iliac and femoral arteries.
Right Hip Fracture
-admit to med/surg
-Ortho consulted, aware of admission
-hold [employer] Plavix; OR planned post Plavix washout on 06/03/24
-pain control
-SCD for DVT PPx pre-op
-Cardiology consulted for pre-op clearance
CAD s/p CABG
HLD
-patient's sister in law confirms remote hx CABG (10-15 years ago) and no PCI within past year
-request outpatient Cardiology notes
-[employer] Asa 81mg PO QD
-[employer] Metoprolol
-SUPER[employer] Statin
-hold Plavix
-Cardiology consulted for pre-op clearance
NIDDM
-diabetic diet
-ISS low
GERD
-[employer] Protonix
Hx Dementia
DVT PPx SCD
DNR - on paperwork for [employer]
--- NOTE | 2024-05-31 10:39 | CON.CAR ---
Addendum entered and electronically signed by Melchor Sage MD 05/31/24 12:37:
Patient seen and examined in collaboration with PROGRAM DIR; agree with below.
-78-year-old male with advanced dementia, CAD, and other medical history outlined below admitted with a hip fracture.
-Patient is unaware as to where he is or the true events that led to his hospitalization.
-Denies any current cardiac symptoms.
-Will obtain an echocardiogram today.
-The patient will be at increased risk for surgery given comorbidities and decreased functional status; nonetheless, he appears to be medically optimized from a cardiac standpoint.
-Hold Plavix; continue aspirin.
-Proceed with surgery as scheduled; recruiting assistant.
-Will follow.
Original Note:
Consultation
Consultation Request
Date/Time Consultation Requested: 05/31/2024 10:15
Date/Time Consultation Performed: 05/31/2024 10:30
Requesting Provider: Dr. Cedillo
Performing Provider: JOMAR Rajput for Dr. Sage
Reason for Consultation: Preop risk assessment
Medical History
-
Chief Complaint: Fall
History of Present Illness:
Dipak Fabian is a 78-year-old male (known to Dr. Redmond, his primary negative turner at [facility]), with CAD (CABG 2009, NSTEMI with PCI 2021), dyslipidemia, NIDDM, CKD3a, ambulatory dysfunction, and dementia who presented to the
emergency department with a chief complaint of a fall. He endorsed right hip pain. X-ray showed acute nondisplaced intertrochanteric fracture of the right proximal femur. He had a fall at his assisted living facility. Orthopedic surgery requested
cardiac risk assessment. Mr. Fabian denies chest pain.
He presented from [facility] with his fall. He thinks he was walking across [address] when he fell to molded goods spot picker his daughter and niece from school.
Past Medical History
Past Medical History: CAD, GERD, Hypercholesterolemia, NIDDM, Renal Failure (CKD 3 AA) and Psychiatric (Dementia)
Past Surgical History: Cardiac (CABG)
Social History
Tobacco: Non-Smoker
Alcohol: None
Drug: None
Living: Assisted Living
Employment: Retired
Family History
Family History: Reviewed & Not Pertinent
Allergies / Home Medications
Allergy/AdvReac Type Severity Reaction Status Date / Time
No Known Allergies Allergy Verified 03/24/23 23:31
�Medication �Instructions �Recorded �Confirmed �Type
acetaminophen 325 mg tablet 650 mg PO Q4HPRN PRN mild 10/25/21 05/31/24 History
pain/temp>100f
aspirin 81 mg tablet,delayed 81 mg PO DAILY Blood clot 10/25/21 05/31/24 History
release prevention/tx
bisacodyl 10 mg rectal suppository 10 mg NE DAILYPRN PRN if mom 10/25/21 05/31/24 History
(Dulcolax (bisacodyl)) ineffective
loperamide 2 mg capsule 2 mg PO Q8HPRN PRN loose stool 10/25/21 05/31/24 History
magnesium hydroxide 400 mg/5 mL 30 ml PO DAILYPRN PRN if no bm x 3 10/25/21 05/31/24 History
oral suspension (Milk of Magnesia) days
metoprolol succinate 25 mg 25 mg PO DAILY Blood pressure 10/25/21 05/31/24 History
tablet,extended release 24 hr
pantoprazole 40 mg tablet,delayed 40 mg PO DAILY GERD 10/25/21 05/31/24 History
release
sodium phosphates 19 gram-7 118 ml NE DAILYPRN PRN if dulcolax 10/25/21 05/31/24 History
gram/118 mL enema (Fleet Enema) ineffective
clopidogrel 75 mg tablet 75 mg PO DAILY Blood clot 10/30/21 05/31/24 Rx
prevention/tx 30 days #30 tabs
atorvastatin 20 mg tablet 20 mg PO QPM High cholesterol 03/11/22 05/31/24 History
docusate sodium 100 mg capsule 100 mg PO MoWeFr@0800,1900 03/24/23 05/31/24 History
Constipation
emollient 1 applic topical TID b/l ear ##0 03/24/23 05/31/24 History
ferrous sulfate 325 mg (65 mg 325 mg PO DAILY Supplement 03/24/23 05/31/24 History
iron) tablet
metformin 500 mg tablet 500 mg PO BID diabetes 03/24/23 05/31/24 History
polyethylene glycol 3350 17 gram 17 g PO MOWEFR constipation 03/24/23 05/31/24 History
oral powder packet (Miralax)
triamcinolone acetonide 0.1 % 1 applic topical BID b/l ears 03/24/23 05/31/24 History
topical cream
Review of Systems
-
History Source: Patient
All other systems: Negative unless noted
Constitutional: No Symptoms
EENT: No Symptoms
Respiratory: No Symptoms
Cardiac: No Symptoms
Abdomen/GI: No Symptoms
: No Symptoms
Musculoskeletal: No Symptoms
Skin: No Symptoms
Neurological: No Symptoms
Endocrine: No Symptoms
Hematologic/Lymphatic: No Symptoms
Physical Exam
Vital Signs
Temp Pulse Resp BP Pulse Ox
97.9 F 103 23 142/76 96
05/31/24 08:05 05/31/24 09:45 05/31/24 09:45 05/31/24 09:00 05/31/24 09:45
Lab Results
05/31/24 08:28
05/31/24 08:28
Physical Exam
General: Well Developed, Well Nourished, No Apparent Distress and Comfortable
HEENT: Normocephalic, Anicteric and Moist Mucous Membranes
Respiratory: Clear and Non Labored Respirations
Cardiac: S1/S2 and Regular Rhythm; Negative Peripheral Edema
Breast: Deferred by me
GI: Soft, Non Tender, Non Distended and Normal Bowel Sounds
Genito-urinary: No Costovertebral Tender
Musculoskeletal: No Clubbing, No Cyanosis and No Edema
Skin: Warm and Dry
Neuro: Awake, Alert and Oriented (himself)
Hematologic/Lymphatic: No Lymphadenopathy
Psych: Calm and Confused
Impression / Plan
-
I/P: 78M with CAD (CABG 2009, NSTEMI with PCI 2021), dyslipidemia, NIDDM, CKD3a, ambulatory dysfunction, and dementia who presented to the emergency department with a chief complaint of a fall.
Outpatient negative turner: Dr Sharla Redmond ([place])
Cardiac risk assessment
-Chest pain-free
-Unclear if he can complete 4 METS due to his underlying dementia
-Not in acute heart failure
-EKG with lateral T wave abnormality
-Echocardiogram ordered
-Risk assessment as below
Right intertochanteric proximal femur fracture, in the setting of a fall
-Surgery and timing per orthopedics
Coronary artery disease
-CABG 2009, NSTEMI 07/2021 (VG to RPL with severe disease PCI performed, balloon angio of [place] OM1)
-On DAPT, clopidogrel now on hold pending surgery, continue ASA
NIDDM, controlled, HbA1c 6.1% last year, per primary
Dyslipidemia, on atorvastatin 20mg, LDL 58 last year
CKD3a
Left cerebellar hemisphere chronic infarct on CT
Dementia, chronic
--- NOTE | 2024-05-31 12:26 | CON.ORTHO ---
Consultation
-
Date/Time Consultation Requested: 05/31/24 @10:25am
Date/Time Consultation Performed: 05/31/24 @12:25pm
Requesting Provider: ER Provider
Performing Provider: Taylor Berger PA-C for Cindy Olson DO
Reason for Consultation: right hip fracture
Consultation - Orthopedics
History
HPI: 78yo male presents to [place] ER following a fall this morning. History is mostly obtained from chart review as patient if poor historian due to history of dementia. Patient reports that he had a big fall and does endorse pain in the right
knee and hip. He is a resident at [facility]. He is on Plavix.
PAST MEDICAL HISTORY: CKD, CAD, GERD, HTN, Hypercholesterolemia, NIDDM, [place], Anxiety/depression, dementia
PAST SURGICAL HISTORY: CABG, cardiac stents
SOCIAL HISTORY: lives at [facility]
FAMILY HISTORY: Unable to obtain
REVIEW OF SYSTEMS: Unable to obtain
Allergies / Home Medications
Allergy/AdvReac Type Severity Reaction Status Date / Time
No Known Allergies Allergy Verified 03/24/23 23:31
�Medication �Instructions �Recorded
acetaminophen 325 mg tablet 650 mg PO Q4HPRN PRN mild 10/25/21
pain/temp>100f
aspirin 81 mg tablet,delayed 81 mg PO DAILY Blood clot 10/25/21
release prevention/tx
bisacodyl 10 mg rectal suppository 10 mg MO DAILYPRN PRN if mom 10/25/21
(Dulcolax (bisacodyl)) ineffective
loperamide 2 mg capsule 2 mg PO Q8HPRN PRN loose stool 10/25/21
magnesium hydroxide 400 mg/5 mL 30 ml PO DAILYPRN PRN if no bm x 3 10/25/21
oral suspension (Milk of Magnesia) days
metoprolol succinate 25 mg 25 mg PO DAILY Blood pressure 10/25/21
tablet,extended release 24 hr
pantoprazole 40 mg tablet,delayed 40 mg PO DAILY GERD 10/25/21
release
sodium phosphates 19 gram-7 118 ml MO DAILYPRN PRN if dulcolax 10/25/21
gram/118 mL enema (Fleet Enema) ineffective
clopidogrel 75 mg tablet 75 mg PO DAILY Blood clot 10/30/21
prevention/tx 30 days #30 tabs
atorvastatin 20 mg tablet 20 mg PO QPM High cholesterol 03/11/22
docusate sodium 100 mg capsule 100 mg PO MoWeFr@0800,1900 03/24/23
Constipation
emollient 1 applic topical TID b/l ear ##0 03/24/23
ferrous sulfate 325 mg (65 mg 325 mg PO DAILY Supplement 03/24/23
iron) tablet
metformin 500 mg tablet 500 mg PO BID diabetes 03/24/23
polyethylene glycol 3350 17 gram 17 g PO MOWEFR constipation 03/24/23
oral powder packet (Miralax)
triamcinolone acetonide 0.1 % 1 applic topical BID b/l ears 03/24/23
topical cream
Vital Signs / Lab Results
Temp Pulse Resp BP Pulse Ox
97.9 F 103 23 142/76 94
05/31/24 08:05 05/31/24 09:45 05/31/24 09:45 05/31/24 09:00 05/31/24 12:23
05/31/24 08:28
05/31/24 08:28
RADIOGRAPHIC FINDNIGS:
Xrays right hip show displaced intertrochanteric fracture, Minimal bilateral osteoarthritis of the hips, Severe calcific atherosclerotic plaque in the iliac and femoral arteries.
PHYSICAL EXAM:
General: no acute distress
HEENTL NCAT, sclera anicteric, normal hearing
Heart: No JVD
Lungs: Normal work of breathing on room air
: chronic indwelling nguyen catheter
MSK: Directed exam of right hip reveals leg shortened and internally rotated. +TTP of lateral hip. Thigh soft and compressible. +Log roll. Able to plantarflex/dorsiflex the ankle. NVI distally
Assessment / Plan
ASSESSMENT: 78yo male with right intertrochanteric hip fracture
PLAN: Unfortunately, Mr. Fabian sustained a right hip fracture with his fall earlier today. Recommend surgical fixation. Attempted to contact patient's family to further discuss and obtain consent, however no answer. Will have to reach out again.
Appreciate cardiac clearance. Will tentatively plan for OR on 06/03/24, for right hip gamma nail under the direction of Dr. Olson after Plavix washout and pending consent from family. Ancef and irrigation mainframe applications developer to OR. Type and screen
ordered. He will need to be NPO after midnight night. Remain on bedrest for now. Continue with pain management as needed. May apply ice to right hip. Will need PT/OT evaluation postop. Orthopedics will continue to follow.
--- NOTE | 2024-05-31 15:05 | W.PN.UPDATE ---
Update Note
Progress Note Update
pt seen and examined. Spoke with brother via telephone
agree with ortho PA note
pt last took plavix yesterday
right Intratrocanteric hip fx
Plan: ORIF right hip with gamma nail Fri am
Obtaining verbal consent from [id number] [employer]
[2024-05-31 15:49] LABS: Glucose - Point of Care 149 mg/dl (70-99)
[2024-05-31] MEDS: NOVOLOG FLEXPEN-LOW RESISTANCE SC (16:02)
[2024-05-31 18:34] LABS: Glucose - Point of Care 208 mg/dl (70-99)
[2024-05-31] MEDS: LIPITOR 20 MG PO (18:41)
[2024-05-31] MEDS: NOVOLOG FLEXPEN-LOW RESISTANCE 2 UNITS SC (19:19)
[2024-05-31] MEDS: TRIAMCINOLONE ACETONIDE 0.1% CREAM 1 APPLIC TOPICAL (20:39)
[2024-05-31] MEDS: DESENEX/MITRAZOL/ZEASORB 1 APPLIC TOPICAL (20:39)
[2024-05-31 22:00] LABS: Glucose - Point of Care 166 mg/dl (70-99)
[2024-05-31] MEDS: ROXICODONE 5 MG PO (22:27)
[2024-06-01 03:15] VITALS: BP 150/75
--- NOTE | 2024-06-01 04:24 | DOWNTIME ---
There was a [employer] Client [employer] Downtime on 06/01/2024 from 0100 to 06/02/2023 at 0420 . Downtime documentation of patient's care, including medication administrations, has been reconciled in the electronic record per guidelines. Refer to the
patient's paper chart under the miscellaneous tab to see printed paper medication records and downtime forms.
[2024-06-01 06:45] LABS: Hematocrit 33.3 % (39.0-52.0); Hemoglobin 11.4 g/dL (13.0-18.0); Mean Corp Hgb Conc. 34.2 g/dL (33.0-37.0); Mean Corpuscular Hgb 28.9 pg (27.0-31.0); Mean Corpuscular Volume 84.5 fL (80.0-94.0); Platelet Count 188 10^3/uL (130-400); Red Blood Cell Count 3.94 10^6/uL (4.70-6.10); Red Cell Dist. Width 13.4 % (11.5-14.5)
[2024-06-01 07:11] LABS: Blood Urea Nitrogen 23 mg/dl (9-20); Calcium 9.2 mg/dl (8.4-10.2); Carbon Dioxide 21 mmol/L (22-30); Chloride 103 mmol/L (98-107); Estimated Creatinine Clearance 48 ml/min; Glucose 152 mg/dl (70-99); Potassium 3.9 mmol/L (3.5-5.1); Sodium 139 mmol/L (135-145); eGFR > 60.00
[2024-06-01 07:38] VITALS: BP 138/79
[2024-06-01 08:17] LABS: Glucose - Point of Care 175 mg/dl (70-99)
--- NOTE | 2024-06-01 09:00 | CM ---
Patient chart reviewed
Dx: R hip fracture
Hx: dementia
OR today
IA obtained
Spoke with Judy barillas [facility], bed hold, no auth needed
PLOF: transfers min A, toilet at mod A, propels self around indep. level wc bound
no 02
Patient is a LTC resident at [facility]
Referral entered in [facility]
Await PT/OT post-op
PCP: Ash Ying
Pharmacy: [facility]
PLAN: Return to [facility] when medially stable
[facility] Report #: [phone],
[2024-06-01] MEDS: TOPROL XL 25 MG PO (09:39)
[2024-06-01] MEDS: ASPIR LOW (ENTERIC COATED) 81 MG PO (09:40)
[2024-06-01] MEDS: NOVOLOG FLEXPEN-LOW RESISTANCE 1 UNITS SC ×2 (09:40→12:03)
[2024-06-01] MEDS: PROTONIX 40 MG PO (09:40)
[2024-06-01] MEDS: DESENEX/MITRAZOL/ZEASORB 1 APPLIC TOPICAL ×2 (09:41→20:13)
[2024-06-01] MEDS: TRIAMCINOLONE ACETONIDE 0.1% CREAM 1 APPLIC TOPICAL ×2 (09:42→20:14)
[2024-06-01 10:10] LABS: Glycohemoglobin (HgbA1c) 6.1 % (4.0-5.6)
--- NOTE | 2024-06-01 10:55 | W.PN.HOSP.TC ---
Today's Communication/Plan
-
see plan
Assessment / Plan
Assessment / Plan
Mr. Dipak Fabian is a 78 yo man with hx CAD (s/p CABG), GERD, HTN, HLD, chronic indwelling nguyen catheter presents to the ER post fall with resulting right hip pain.
HEAD CT
IMPRESSION:
1. No CT evidence for acute intracranial hemorrhage.
2. SEVERE WHITE MATTER LEUKOARAIOSIS in the frontal and parietal lobes.
3. 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
4. Moderate diffuse cerebral and cerebellar volume loss.
5. Moderate left maxillary sinusitis.
Hip X-Ray
IMPRESSION:
1. ACUTE NONDISPLACED INTERTROCHANTERIC FRACTURE of the RIGHT PROXIMAL FEMUR.
2. Minimal bilateral osteoarthritis of the hips.
3. Severe calcific atherosclerotic plaque in the iliac and femoral arteries.
TTE
CONCLUSIONS
Left ventricular ejection fraction is approximately 50%, by visual assessment.
Basal to mid anteroseptal, inferoseptal, and inferior hypokinesis.
Normal right ventricular size and function.
Aortic sclerosis without stenosis.
Mild tricuspid regurgitation. Estimated pulmonary artery pressure of 35-40
mmHg.
Right Hip Fracture
-admit to med/surg
-Ortho consulted, aware of admission
-hold SALESPERSON HEARING AIDS Plavix; OR planned post Plavix washout on 06/03/24
-pain control
-SCD for DVT PPx pre-op
-Cardiology consulted for pre-op clearance appreciated
CAD s/p CABG
HLD
-patient's sister in law confirms remote hx CABG (10-15 years ago) and no PCI within past year
-request outpatient Cardiology notes
-SALESPERSON HEARING AIDS Asa 81mg PO QD
-SALESPERSON HEARING AIDS Metoprolol
-SALESPERSON HEARING AIDS Statin
-hold Plavix
-Cardiology consult appreciated
-TTE results above
NIDDM
-diabetic diet
-ISS low
GERD
-SALESPERSON HEARING AIDS Protonix
Hx Dementia
DVT PPx hep subQ - last dose tomorrow morning - confirmed OK with ortho
DNR - on paperwork for [employer]
Anticipated Discharge: > 48 hours
Subjective/Interval History
-
Date of Service: June 01, 2024
no new complaints
pain controlled
Objective Data
-
Labs:
Laboratory Results
06/01/24
06:04
WBC 9.0
Hgb 11.4 L
Hct 33.3 L
Plt Count 188
Sodium 139
Potassium 3.9
Chloride 103
Carbon Dioxide 21 L
BUN 23 H
Creatinine 1.1
Glucose 152 H
Calcium 9.2
Vital Signs:
Vital Signs
Temp Pulse Resp BP Pulse Ox
98.8 F 101 17 138/79 95
06/01/24 07:38 06/01/24 09:39 06/01/24 07:38 06/01/24 09:39 06/01/24 07:38
I&O
05/31/24 06/01/24 06/02/24
06:59 06:59 06:59
Intake Total 480 / 480
Output Total 200 / 200 250 / 250
Balance -200 / -200 230 / 230
Review of Systems
-
History Source: Patient
All other systems: Reviewed and negative
Physical Exam
-
General: Comfortable
HEENT: Moist Mucous Membranes
Respiratory: Clear to Auscultation
Cardiac: Regular Rhythm and S1/S2
GI: Soft and Nontender
Neuro: Awake, Alert and Oriented (self)
Psych: Calm and Confused; Negative Agitated
Data Reviewed
-
Diagnostic Radiology: Report Reviewed by me
Labs: Labs Reviewed by me
[2024-06-01 11:08] LABS: Glucose - Point of Care 153 mg/dl (70-99)
[2024-06-01 11:17] VITALS: BP 148/79
[2024-06-01] MEDS: HEPARIN 5000 UNITS SC ×2 (12:02→20:13)
[2024-06-01] MEDS: ROXICODONE 5 MG PO (13:11)
--- NOTE | 2024-06-01 13:43 | PN.CDI ---
CDI
- -
CDI:
Physician Documentation Request
Admit Date: 05/31/24 10:58
Dear Doctor Nguyen,
Please review the following and provide your response in the progress notes.
Clinical Indicators:
The diagnosis of Severe White Matter Leukoaraiosis was included in the signed CT report.
05/[address]
IMPRESSION:
#...SEVERE WHITE MATTER LEUKOARAIOSIS in the frontal and parietal lobes.
Please indicate in the progress notes that the above diagnosis is valid for this patient:
Severe White Matter Leukoaraiosis is a valid diagnosis(please include in progress note)
Severe White Matter Leukoaraiosis is not a valid diagnosis for this patient
Other (please specify)
Use of terms such as suspected, likely, concern for, or probable are acceptable for a diagnosis that is being evaluated, monitored or treated as if it exists and can be coded in the inpatient setting, when documented at the time of discharge.
Thank you,
Luana Sosa RN BSN CCDS
CDI Specialist
please contact via tiger text
Please use your independent medical judgment in providing your response.
--- NOTE | 2024-06-01 13:49 | PN.CDI ---
CDI
- -
CDI:
Physician Documentation Request
Admit Date: 05/31/24 10:58
Dear Doctor Nguyen,
Please review the following and provide your response in the progress notes.
Clinical Indicators:
ED, 05/31
#...presents from assisted living where he allegedly
#...got up to answer his door prior to arrival and fell.
#He notes that he fell onto his right hip with subsequent pain, unable to ambulate.
#...-x-ray confirms an acute nondisplaced intertrochanteric fracture on the right.
Based on the above and your clinical assessment, please clarify the following regarding the etiology/etiologies of the right hip fracture:
Multifactorial, traumatic and age related osteoporosis
Traumatic fracture only
Other (please specify)
Type Fracture
Age-related With current pathological fx
Drug induced (specify drug) without current pathological fx
Idiopathic
Osteoporosis of disuse
Due to post surgical malabsorption
Post traumatic
Use of terms such as suspected, likely, concern for, or probable (associated with a specific diagnosis that is being evaluated, monitored, or treated as if it exists) are acceptable and can be coded in the inpatient setting, when documented at the
time of discharge.
Thank you,
Luana Sosa RN BSN CCDS
CDI Specialist
please contact via tiger text
Please use your independent medical judgment in providing your response.
[2024-06-01 15:18] VITALS: BP 132/76
[2024-06-01 16:43] LABS: Glucose - Point of Care 203 mg/dl (70-99)
[2024-06-01] MEDS: NOVOLOG FLEXPEN-LOW RESISTANCE 2 UNITS SC (17:30)
[2024-06-01] MEDS: LIPITOR 20 MG PO (17:31)
[2024-06-01 19:21] VITALS: BP 158/83
[2024-06-01 21:41] LABS: Glucose - Point of Care 185 mg/dl (70-99)
[2024-06-01] MEDS: TYLENOL 650 MG PO (22:45)
[2024-06-01 23:34] VITALS: BP 148/82
[2024-06-02 03:18] VITALS: BP 142/74
[2024-06-02 07:05] VITALS: BP 162/80
[2024-06-02 07:54] LABS: Glucose - Point of Care 162 mg/dl (70-99)
--- NOTE | 2024-06-02 07:57 | W.PN.UPDATE ---
Update Note
Progress Note Update
78 year old male with right hip intertrochanteric fracture.
Plavix has been discontinued, awaiting OR pending wash out.
Plan to proceed to OR tomorrow for right hip gamma nail under direction of Dr. Olson.
NPO after midnight.
NWB until after procedure.
IV abx land acquisition manager to OR.
Consent obtained by Dr. Olson.
[2024-06-02] MEDS: TOPROL XL 25 MG PO (08:31)
[2024-06-02] MEDS: TRIAMCINOLONE ACETONIDE 0.1% CREAM 1 APPLIC TOPICAL ×2 (08:32→21:20)
[2024-06-02] MEDS: ASPIR LOW (ENTERIC COATED) 81 MG PO (08:32)
[2024-06-02] MEDS: PROTONIX 40 MG PO (08:32)
[2024-06-02] MEDS: HEPARIN 5000 UNITS SC (08:32)
[2024-06-02] MEDS: DESENEX/MITRAZOL/ZEASORB 1 APPLIC TOPICAL ×2 (08:32→21:20)
[2024-06-02] MEDS: TYLENOL 650 MG PO (10:30)
[2024-06-02] MEDS: NOVOLOG FLEXPEN-LOW RESISTANCE SC ×2 (10:39→17:35)
[2024-06-02 11:05] VITALS: BP 124/61
[2024-06-02 11:23] LABS: Hematocrit 33.6 % (39.0-52.0); Hemoglobin 11.4 g/dL (13.0-18.0); Mean Corp Hgb Conc. 33.9 g/dL (33.0-37.0); Mean Corpuscular Hgb 28.9 pg (27.0-31.0); Mean Corpuscular Volume 85.1 fL (80.0-94.0); Mean Platelet Volume 9.8 fL (7.4-10.4); Platelet Count 167 10^3/uL (130-400); Red Blood Cell Count 3.95 10^6/uL (4.70-6.10); Red Cell Dist. Width 13.5 % (11.5-14.5); White Blood Cell Count 9.8 10^3/uL (4.8-10.8)
--- NOTE | 2024-06-02 11:27 | W.PN.HOSP.TC ---
Today's Communication/Plan
-
NPO after MN for OR tomorrow
Assessment / Plan
Assessment / Plan
Mr. Dipak Fabian is a 78 yo man with hx CAD (s/p CABG), GERD, HTN, HLD, chronic indwelling nguyen catheter presents to the ER post fall with resulting right hip pain.
HEAD CT
IMPRESSION:
1. No CT evidence for acute intracranial hemorrhage.
2. SEVERE WHITE MATTER LEUKOARAIOSIS in the frontal and parietal lobes.
3. 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
4. Moderate diffuse cerebral and cerebellar volume loss.
5. Moderate left maxillary sinusitis.
Hip X-Ray
IMPRESSION:
1. ACUTE NONDISPLACED INTERTROCHANTERIC FRACTURE of the RIGHT PROXIMAL FEMUR.
2. Minimal bilateral osteoarthritis of the hips.
3. Severe calcific atherosclerotic plaque in the iliac and femoral arteries.
TTE
CONCLUSIONS
Left ventricular ejection fraction is approximately 50%, by visual assessment.
Basal to mid anteroseptal, inferoseptal, and inferior hypokinesis.
Normal right ventricular size and function.
Aortic sclerosis without stenosis.
Mild tricuspid regurgitation. Estimated pulmonary artery pressure of 35-40
mmHg.
Right Hip Fracture -
Multifactorial, traumatic and age related osteoporosis
-admit to med/surg
-Ortho consulted, aware of admission
-hold MANAGER DIVISION Plavix; OR planned post Plavix washout on 06/03/24
-pain control
-Cardiology consulted for pre-op clearance appreciated
CAD s/p CABG
HLD
-patient's sister in law confirms remote hx CABG (10-15 years ago) and no PCI within past year
-request outpatient Cardiology notes
-MANAGER DIVISION Asa 81mg PO QD
-MANAGER DIVISION Metoprolol
-MANAGER DIVISION Statin
-hold Plavix
-Cardiology consult appreciated
-TTE results above
NIDDM
-diabetic diet
-ISS low
GERD
-MANAGER DIVISION Protonix
Hx Dementia
Severe White Matter Leukoaraiosis is a valid diagnosis
DVT PPx no further hep subQ pre-op; SCD's
DNR - on paperwork for [employer]
Anticipated Discharge: > 48 hours
Subjective/Interval History
-
Date of Service: June 02, 2024
awoken from sleep
no new complaints
Objective Data
-
Labs:
Laboratory Results
06/02/24
11:01
WBC 9.8
Hgb 11.4 L
Hct 33.6 L
Plt Count 167
Vital Signs:
Vital Signs
Temp Pulse Resp BP Pulse Ox
98.4 F 84 19 162/80 98
06/02/24 07:05 06/02/24 07:05 06/02/24 07:05 06/02/24 07:05 06/02/24 07:05
I&O
06/01/24 06/02/24 06/03/24
06:59 06:59 06:59
Intake Total 660 / 660
Output Total 200 / 200 750 / 750
Balance -200 / -200 -90 / -90
Review of Systems
-
History Source: Patient
All other systems: Reviewed and negative
Physical Exam
-
General: Comfortable
HEENT: Moist Mucous Membranes
Respiratory: Clear to Auscultation
Cardiac: Regular Rhythm and S1/S2
GI: Soft and Nontender
Neuro: Awake, Alert and Oriented (self)
Psych: Calm and Confused; Negative Agitated
Data Reviewed
-
Diagnostic Radiology: Report Reviewed by me
Labs: Labs Reviewed by me
[2024-06-02 12:43] LABS: Glucose - Point of Care 182 mg/dl (70-99)
[2024-06-02] MEDS: NOVOLOG FLEXPEN-LOW RESISTANCE 1 UNITS SC (13:05)
[2024-06-02 15:05] VITALS: BP 117/73
[2024-06-02 17:04] LABS: Glucose - Point of Care 146 mg/dl (70-99)
[2024-06-02] MEDS: LIPITOR 20 MG PO (17:43)
[2024-06-02 19:00] VITALS: BP 141/71
[2024-06-02 22:03] LABS: Glucose - Point of Care 139 mg/dl (70-99)
[2024-06-02 23:00] VITALS: BP 158/86
[2024-06-03] VITALS (11 sets, daily range): BP systolic 128–157; BP diastolic 68–89; PULSE 97–101; O2SAT 97
[2024-06-03 06:16] LABS: Hematocrit 32.2 % (39.0-52.0); Hemoglobin 11.1 g/dL (13.0-18.0); Mean Corp Hgb Conc. 34.5 g/dL (33.0-37.0); Mean Corpuscular Hgb 28.8 pg (27.0-31.0); Mean Corpuscular Volume 83.4 fL (80.0-94.0); Mean Platelet Volume 9.8 fL (7.4-10.4); Platelet Count 171 10^3/uL (130-400); Red Blood Cell Count 3.86 10^6/uL (4.70-6.10); Red Cell Dist. Width 13.2 % (11.5-14.5); White Blood Cell Count 10.4 10^3/uL (4.8-10.8)
[2024-06-03 06:38] LABS: Blood Urea Nitrogen 25 mg/dl (9-20); Calcium 8.9 mg/dl (8.4-10.2); Carbon Dioxide 25 mmol/L (22-30); Chloride 103 mmol/L (98-107); Estimated Creatinine Clearance 41 ml/min; Glucose 143 mg/dl (70-99); Potassium 3.7 mmol/L (3.5-5.1); Sodium 137 mmol/L (135-145); eGFR 56.23
[2024-06-03] MEDS: NOVOLOG FLEXPEN-LOW RESISTANCE SC ×2 (07:17→12:50)
[2024-06-03 07:56] LABS: Glucose - Point of Care 143 mg/dl (70-99)
[2024-06-03] MEDS: TOPROL XL 25 MG PO (08:59)
[2024-06-03] MEDS: DESENEX/MITRAZOL/ZEASORB TOPICAL (09:08)
[2024-06-03] MEDS: ASPIR LOW (ENTERIC COATED) PO (09:08)
[2024-06-03] MEDS: TRIAMCINOLONE ACETONIDE 0.1% CREAM TOPICAL (09:09)
[2024-06-03] MEDS: PROTONIX PO (09:09)
--- NOTE | 2024-06-03 09:55 | W.PN.HOSP.TC ---
Today's Communication/Plan
-
PT/OT
pain control
Assessment / Plan
Assessment / Plan
Mr. Dipak Fabian is a 78 yo man with hx CAD (s/p CABG), GERD, HTN, HLD, chronic indwelling nguyen catheter presents to the ER post fall with resulting right hip pain.
HEAD CT
IMPRESSION:
1. No CT evidence for acute intracranial hemorrhage.
2. SEVERE WHITE MATTER LEUKOARAIOSIS in the frontal and parietal lobes.
3. 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
4. Moderate diffuse cerebral and cerebellar volume loss.
5. Moderate left maxillary sinusitis.
Hip X-Ray
IMPRESSION:
1. ACUTE NONDISPLACED INTERTROCHANTERIC FRACTURE of the RIGHT PROXIMAL FEMUR.
2. Minimal bilateral osteoarthritis of the hips.
3. Severe calcific atherosclerotic plaque in the iliac and femoral arteries.
TTE
CONCLUSIONS
Left ventricular ejection fraction is approximately 50%, by visual assessment.
Basal to mid anteroseptal, inferoseptal, and inferior hypokinesis.
Normal right ventricular size and function.
Aortic sclerosis without stenosis.
Mild tricuspid regurgitation. Estimated pulmonary artery pressure of 35-40
mmHg.
Right Hip Fracture -
Multifactorial, traumatic and age related osteoporosis
-admitted to med/surg
-Ortho consulted, aware of admission
-hold CALTRANS EQUIPMENT OPERATOR Plavix; s/p Plavix washout
-s/p OR this morning
-pain control
-PT/OT
-DVT PPx
-Cardiology consult for pre-op clearance appreciated
CAD s/p CABG
HLD
-patient's sister in law confirms remote hx CABG (10-15 years ago) and no PCI within past year
-request outpatient Cardiology notes
-CALTRANS EQUIPMENT OPERATOR Asa 81mg PO QD
-CALTRANS EQUIPMENT OPERATOR Metoprolol
-CALTRANS EQUIPMENT OPERATOR Statin
-hold Plavix
-Cardiology consult appreciated
-TTE results above
-monitor on tele for 24-48 hours post-op
NIDDM
-diabetic diet
-ISS low
GERD
-CALTRANS EQUIPMENT OPERATOR Protonix
Hx Dementia
Severe White Matter Leukoaraiosis is a valid diagnosis
DVT PPx SCD's
DNR - on paperwork for [facility]
Anticipated Discharge: 24 - 48 hours
Subjective/Interval History
-
Date of Service: June 03, 2024
see post op
has some right hip pain
about to get up with PT
Objective Data
-
Labs:
Laboratory Results
06/03/24
05:36
WBC 10.4
Hgb 11.1 L
Hct 32.2 L
Plt Count 171
Sodium 137
Potassium 3.7
Chloride 103
Carbon Dioxide 25
BUN 25 H
Creatinine 1.3
Glucose 143 H
Calcium 8.9
Vital Signs:
Vital Signs
Temp Pulse Resp BP Pulse Ox
98.8 F 78 17 135/71 99
06/03/24 07:05 06/03/24 07:05 06/03/24 07:05 06/03/24 07:05 06/03/24 07:05
I&O
06/02/24 06/03/24 06/04/24
06:59 06:59 06:59
Intake Total 660 / 660 1440 / 1440
Output Total 750 / 750 800 / 800
Balance -90 / -90 640 / 640
Review of Systems
-
History Source: Patient
All other systems: Reviewed and negative
Physical Exam
-
General: Comfortable
HEENT: Moist Mucous Membranes
Respiratory: Clear to Auscultation
Cardiac: Regular Rhythm and S1/S2
GI: Soft and Nontender
Musculoskeletal: No Edema
Neuro: Awake, Alert and Oriented (self)
Psych: Calm and Confused; Negative Agitated
Data Reviewed
-
Diagnostic Radiology: Report Reviewed by me
Labs: Labs Reviewed by me
[2024-06-03 11:47] LABS: Glucose - Point of Care 178 mg/dl (70-99)
--- NOTE | 2024-06-03 12:22 | CM ---
Addendum entered by Marli Marcial 06/03/24 13:32:
IMM explained to Eli Fabian. In chart
CM consult completed for dispo planning
Spoke with Judy liaison at [facility] & updated referral in [facility]
Original Note:
Patient in OR
R femur ORIF gamma nail
Resident of [facility] LTC, bed hold
Referral in [facility]
PLAN: Return to [facility] when medially stable
[facility] Report #: [phone],
[2024-06-03 12:38] LABS: Glucose - Point of Care 215 mg/dl (70-99)
--- NOTE | 2024-06-03 16:22 | W.PN.CD ---
Today's Communication / Plan
-
continue ASA 81mg daily, Toprol XL; I do not see a reason to resume Plavix
please call us back with additional questions
Impression / Plan
-
78M with CAD (CABG 2009, NSTEMI with PCI 2021), dyslipidemia, NIDDM, CKD3a, ambulatory dysfunction, and dementia who presented to the emergency department with a chief complaint of a fall.
Outpatient horse race starter: Dr Sharla Redmond ([place])
Right intertochanteric proximal femur fracture, in the setting of a fall
-s/p OR, no cardiac complications
Coronary artery disease
-CABG 2009, NSTEMI 07/2021 (VG to RPL with severe disease PCI performed, balloon angio of koi OM1)
-stable, no angina.
-continue ASA 81mg daily, Toprol XL; I do not see a reason to resume Plavix
NIDDM
Dyslipidemia, on atorvastatin 20mg
CKD3a
Left cerebellar hemisphere chronic infarct on CT
Dementia, chronic
Physical Exam
Vital Signs/Labs
Vital Signs
Temp Pulse Resp BP Pulse Ox
98.7 F 97 17 157/88 99
06/03/24 15:05 06/03/24 15:05 06/03/24 15:05 06/03/24 15:05 06/03/24 15:05
06/03/24 05:36
06/03/24 05:36
PT 13.4 Sec (11.4-14.6) 05/31/24 08:28
INR 0.99 05/31/24 08:28
Magnesium 2.0 mg/dl (1.6-2.3) 06/01/24 06:04
Physical Exam
Constitutional: No acute distress and Comfortable
EENT: Moist mucous membranes
Cardiovascular: Rhythm & rate is regular, Pedal edema is absent, JVD pressure is normal and Systolic murmur absent
Respiratory: Respiratory effort normal and Lungs clear to auscul.
Neuro/Psych: AO x 3
Data Reviewed
-
Date of Service: June 03, 2024
Labs: Labs Reviewed by me
[2024-06-03 16:58] LABS: Glucose - Point of Care 297 mg/dl (70-99)
[2024-06-03] MEDS: LIPITOR 20 MG PO (17:27)
[2024-06-03] MEDS: ANCEF 5 IV (17:28)
[2024-06-03] MEDS: NOVOLOG FLEXPEN-LOW RESISTANCE 3 UNITS SC (17:28)
--- NOTE | 2024-06-03 20:04 | PTCARENOTE ---
Assumed care of pt from previous nurse. Pt reports pain as tolerable to rle. Sleepy. Pt neurovascular checks to rle wnl. Pt call schneider is within reach, pt does not ring renee., rounding in place, bed alarm in place. will cont to monitor.
[2024-06-03] MEDS: COLACE 100 MG PO (20:41)
[2024-06-03 21:23] LABS: Glucose - Point of Care 281 mg/dl (70-99)
[2024-06-03] MEDS: DESENEX/MITRAZOL/ZEASORB 1 APPLIC TOPICAL (22:01)
[2024-06-03] MEDS: TRIAMCINOLONE ACETONIDE 0.1% CREAM 1 APPLIC TOPICAL (22:01)
[2024-06-04] VITALS (7 sets, daily range): BP systolic 113–182; BP diastolic 58–96
[2024-06-04] MEDS: ANCEF 5 IV (00:35)
[2024-06-04] MEDS: TYLENOL PO (00:36)
[2024-06-04] MEDS: FLUSH (NSS) 1 FLUSH IV (00:36)
[2024-06-04] MEDS: TYLENOL 650 MG PO (04:06)
[2024-06-04 07:22] LABS: Glucose - Point of Care 159 mg/dl (70-99)
--- NOTE | 2024-06-04 08:07 | W.PN.ORTHO ---
Today's Communication / Plan
-
78 yo M POD1 right hip gamma nail under the direction of Dr. Olson
--Partial weight bearing with assistive device. We appreciate the assistance of PT/OT.
--May resume Plavix today, or DVT ppx per primary.
--Pain control prn. Ice and elevation for edema control.
--Hgb 11.1 this AM.
--I reached out to nursing to request they change proximal dressing as there were no Primaseal available on the floor this morning. May reinforce or change as needed.
--Case management consult for discharge planning.
--Orthopedics will continue to follow along.
Assessment
.
Distal Motor Intact: Yes
Dressing:
Clean, dry and intact.
Plan
.
Surgery / Date: Right hip gamma nail, 06/03, [place]
Activity:
Out of bed.
PT/OT
Subjective
.
.:
Mr. Fabian is POD1 following his right hip cephalomedullary nail performed by Dr. Olson. He is resting comfortably in bed, and denies any pain at present.
Vital Signs and Labs
.
Vital Signs and Labs:
Lab Results
06/03/24 05:36
06/03/24 05:36
Temp Pulse Resp BP Pulse Ox
98.1 F 96 19 143/82 99
06/04/24 07:11 06/04/24 07:11 06/04/24 07:11 06/04/24 07:40 06/04/24 07:11
PT 13.4 Sec (11.4-14.6) 05/31/24 08:28
INR 0.99 05/31/24 08:28
Physical Exam
-
Directed exam of the right hip reveals proximal dressing saturated with blood. Middle and distal dressing clean, dry and intact. No significant tenderness about the hip. Thigh soft and compressible. Calf soft and nontender. Neurovascularly intact
distally.
[2024-06-04] MEDS: NOVOLOG FLEXPEN-LOW RESISTANCE 1 UNITS SC (08:38)
[2024-06-04] MEDS: TOPROL XL 25 MG PO (08:38)
[2024-06-04] MEDS: PROTONIX 40 MG PO (08:38)
[2024-06-04] MEDS: COLACE 100 MG PO ×2 (08:38→20:44)
[2024-06-04] MEDS: ASPIR LOW (ENTERIC COATED) 81 MG PO (08:38)
[2024-06-04] MEDS: DESENEX/MITRAZOL/ZEASORB 1 APPLIC TOPICAL ×2 (08:39→21:08)
[2024-06-04] MEDS: TRIAMCINOLONE ACETONIDE 0.1% CREAM 1 APPLIC TOPICAL ×2 (08:39→21:08)
--- NOTE | 2024-06-04 09:25 | W.PN.HOSP.TC ---
Today's Communication/Plan
-
awaiting AM labs
anticipate started Lovenox for DVT PPx; unclear if patient needs to be resumed on Plavix as PCI was over one year ago
eventual SNF
Assessment / Plan
Assessment / Plan
Mr. Dipak Fabian is a 78 yo man with hx CAD (s/p CABG), GERD, HTN, HLD, chronic indwelling nguyen catheter presents to the ER post fall with resulting right hip pain found to have right hip fracture now s/p OR post plavix washout on 06/03.
HEAD CT
IMPRESSION:
1. No CT evidence for acute intracranial hemorrhage.
2. SEVERE WHITE MATTER LEUKOARAIOSIS in the frontal and parietal lobes.
3. 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
4. Moderate diffuse cerebral and cerebellar volume loss.
5. Moderate left maxillary sinusitis.
Hip X-Ray
IMPRESSION:
1. ACUTE NONDISPLACED INTERTROCHANTERIC FRACTURE of the RIGHT PROXIMAL FEMUR.
2. Minimal bilateral osteoarthritis of the hips.
3. Severe calcific atherosclerotic plaque in the iliac and femoral arteries.
TTE
CONCLUSIONS
Left ventricular ejection fraction is approximately 50%, by visual assessment.
Basal to mid anteroseptal, inferoseptal, and inferior hypokinesis.
Normal right ventricular size and function.
Aortic sclerosis without stenosis.
Mild tricuspid regurgitation. Estimated pulmonary artery pressure of 35-40
mmHg.
Right Hip Fracture -
Multifactorial, traumatic and age related osteoporosis
-admitted to med/surg
-Ortho consulted, aware of admission
-s/p Plavix washout
-s/p OR morning of 06/03 - right hip gamma nail
-pain control
-PT/OT - WBAT with assist device
-DVT PPx - await AM labs, then likely start Lovenox
-Cardiology consult for pre-op clearance appreciated
CAD s/p CABG
HLD
-patient's sister in law confirms remote hx CABG (10-15 years ago) and no PCI within past year
-request outpatient Cardiology notes
-AMPHIBIOUS OPERATIONS OFFICER Asa 81mg PO QD
-AMPHIBIOUS OPERATIONS OFFICER Metoprolol
-AMPHIBIOUS OPERATIONS OFFICER Statin
-hold Plavix - will hold while receiving Lovenox for DVT PPx as PCI over one year ago
-Cardiology consult appreciated
-TTE results above
-monitor on tele for 24-48 hours post-op
NIDDM
-diabetic diet
-ISS low
GERD
-AMPHIBIOUS OPERATIONS OFFICER Protonix
Hx Dementia
Severe White Matter Leukoaraiosis is a valid diagnosis
DVT PPx SCD's
DNR - on paperwork for [employer]
Anticipated Discharge: 24 - 48 hours
Subjective/Interval History
-
Date of Service: June 04, 2024
Objective Data
-
Labs:
Laboratory Results
06/04/24
09:21
WBC Pending
Hgb Pending
Hct Pending
Plt Count Pending
Sodium Pending
Potassium Pending
Chloride Pending
Carbon Dioxide Pending
BUN Pending
Creatinine Pending
Glucose Pending
Calcium Pending
Vital Signs:
Vital Signs
Temp Pulse Resp BP Pulse Ox
98.1 F 96 19 143/82 99
06/04/24 07:11 06/04/24 07:11 06/04/24 07:11 06/04/24 07:40 06/04/24 07:11
I&O
06/03/24 06/04/24 06/05/24
06:59 06:59 06:59
Intake Total 1440 / 1440 530 / 530
Output Total 800 / 800 400 / 400
Balance 640 / 640 130 / 130
[2024-06-04 09:47] LABS: Hematocrit 30.7 % (39.0-52.0); Hemoglobin 10.7 g/dL (13.0-18.0); Mean Corp Hgb Conc. 34.9 g/dL (33.0-37.0); Mean Corpuscular Hgb 29.4 pg (27.0-31.0); Mean Corpuscular Volume 84.3 fL (80.0-94.0); Mean Platelet Volume 9.9 fL (7.4-10.4); Platelet Count 205 10^3/uL (130-400); Red Blood Cell Count 3.64 10^6/uL (4.70-6.10); Red Cell Dist. Width 13.3 % (11.5-14.5)
[2024-06-04 10:00] LABS: Blood Urea Nitrogen 32 mg/dl (9-20); Calcium 8.9 mg/dl (8.4-10.2); Carbon Dioxide 24 mmol/L (22-30); Chloride 105 mmol/L (98-107); Estimated Creatinine Clearance 44 ml/min; Glucose 182 mg/dl (70-99); Potassium 3.9 mmol/L (3.5-5.1); Sodium 139 mmol/L (135-145); eGFR > 60.00
--- NOTE | 2024-06-04 10:01 | W.PN.UPDATE ---
Addendum entered and electronically signed by Martina Cedillo MD 06/04/24 10:12:
*tele shows SVT with HR up to 160 per RN, now back to 80's
*addendum - 500cc bolus ordered pre-contrast
creatinine stable - will order CTA given pleuritic chest pain and SVT post op
Original Note:
Update Note
Progress Note Update
patient with sinus tachycardia this morning and complained of pleuritic chest pain
Hg stable
will give 1L IVF
awaiting BMP then will have low threshold to order CTA with recent surgery
[2024-06-04] MEDS: NSS 500 IV (10:07)
[2024-06-04 11:08] LABS: Troponin I < 0.012 ng/ml
[2024-06-04 11:41] LABS: Glucose - Point of Care 215 mg/dl (70-99)
[2024-06-04] MEDS: NOVOLOG FLEXPEN-LOW RESISTANCE 2 UNITS SC (13:20)
[2024-06-04] MEDS: DILAUDID 0.25 MG IV (13:20)
--- NOTE | 2024-06-04 14:00 | PTCARENOTE ---
Pt. had no urine output in nguyen on day shift. Bladder scan showed 257 ml. Updated MD that nguyen was not working properly, MD ordered nguyen to be exchanged. Current nguyen removed and new nguyen placed. Pt with > 1000ml of output immediately following
new nguyen placement. Urine cloudy and yellow. UA sent.
[2024-06-04 14:20] LABS: Urine Albumin 2+ (Neg - Trace); Urine Bilirubin Negative (Negative); Urine Character Cloudy (Clear); Urine Color Yellow; Urine Glucose 1+ (Negative); Urine Ketone Negative (Negative); Urine Leukocyte 3+ (Negative); Urine Nitrite Negative (Negative); Urine Occult Blood 4+ (Negative); Urine Urobilinogen Negative (Neg - 1+)
[2024-06-04 14:30] LABS: Urine Squamous Cell 0-2 /LPF (Few); Urine White Cell 40-50 /HPF (0-5)
[2024-06-04 14:31] LABS: Urine Bacteria Few (Negative)
[2024-06-04] MEDS: NSS 1000 IV (14:53)
[2024-06-04 16:39] LABS: Glucose - Point of Care 322 mg/dl (70-99)
[2024-06-04] MEDS: LIPITOR 20 MG PO (17:18)
[2024-06-04] MEDS: LOVENOX 40 MG SC (17:18)
[2024-06-04] MEDS: NOVOLOG FLEXPEN-LOW RESISTANCE 4 UNITS SC (17:47)
[2024-06-04 21:35] LABS: Glucose - Point of Care 203 mg/dl (70-99)
[2024-06-04 22:56] LABS: Troponin I 0.036 ng/ml
[2024-06-05] VITALS (7 sets, daily range): BP systolic 124–162; BP diastolic 69–84; PULSE 77–82; O2SAT 96
[2024-06-05 05:51] LABS: Hemoglobin 9.6 g/dL (13.0-18.0); Mean Corp Hgb Conc. 34.3 g/dL (33.0-37.0); Mean Corpuscular Hgb 29.2 pg (27.0-31.0); Mean Corpuscular Volume 85.1 fL (80.0-94.0); Mean Platelet Volume 10.1 fL (7.4-10.4); Platelet Count 191 10^3/uL (130-400); Red Blood Cell Count 3.29 10^6/uL (4.70-6.10); Red Cell Dist. Width 13.4 % (11.5-14.5); White Blood Cell Count 8.9 10^3/uL (4.8-10.8)
[2024-06-05 06:02] LABS: Troponin I 0.026 ng/ml
[2024-06-05 06:37] LABS: Blood Urea Nitrogen 30 mg/dl (9-20); Calcium 8.6 mg/dl (8.4-10.2); Carbon Dioxide 21 mmol/L (22-30); Chloride 110 mmol/L (98-107); Estimated Creatinine Clearance 48 ml/min; Glucose 149 mg/dl (70-99); Potassium 4.4 mmol/L (3.5-5.1); Sodium 141 mmol/L (135-145); eGFR > 60.00
--- NOTE | 2024-06-05 08:14 | W.PN.UPDATE ---
Update Note
Progress Note Update
Patient awake and has had breakfast. POD#2 s/p Right gamma nail with Dr. Olson. Stable. Dressings intact. Swelling as expected. WB as previously ordered. Orthopedically stable for transfer to rehab center. Please call if any ortho concerns.
Thank you.
[2024-06-05 08:36] LABS: Glucose - Point of Care 169 mg/dl (70-99)
[2024-06-05] MEDS: LOVENOX 40 MG SC (09:14)
[2024-06-05] MEDS: TOPROL XL 25 MG PO (09:14)
[2024-06-05] MEDS: COLACE 100 MG PO ×2 (09:14→19:46)
[2024-06-05] MEDS: DESENEX/MITRAZOL/ZEASORB 1 APPLIC TOPICAL ×2 (09:15→19:46)
[2024-06-05] MEDS: ASPIR LOW (ENTERIC COATED) 81 MG PO (09:15)
[2024-06-05] MEDS: PROTONIX 40 MG PO (09:15)
[2024-06-05] MEDS: NOVOLOG FLEXPEN-LOW RESISTANCE 1 UNITS SC ×2 (09:16→12:33)
[2024-06-05] MEDS: TRIAMCINOLONE ACETONIDE 0.1% CREAM 1 APPLIC TOPICAL ×2 (09:18→19:47)
--- NOTE | 2024-06-05 09:44 | W.PN.HOSP.TC ---
Addendum entered and electronically signed by Martina Cedillo MD 06/05/24 09:49:
non ischemic myocardial injury
in setting of tachycardia with minimal troponin peak
Original Note:
Today's Communication/Plan
-
anticipate DC to SNF tomorrow
monitor on tele additional 24 hours
continue MOUNTER Metop
Lovenox for DVT PPx
Assessment / Plan
Assessment / Plan
Mr. Dipak Fabian is a 78 yo man with hx CAD (s/p CABG), GERD, HTN, HLD, chronic indwelling nguyen catheter presents to the ER post fall with resulting right hip pain found to have right hip fracture now s/p OR post plavix washout on 06/03.
HEAD CT
IMPRESSION:
1. No CT evidence for acute intracranial hemorrhage.
2. SEVERE WHITE MATTER LEUKOARAIOSIS in the frontal and parietal lobes.
3. 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
4. Moderate diffuse cerebral and cerebellar volume loss.
5. Moderate left maxillary sinusitis.
Hip X-Ray
IMPRESSION:
1. ACUTE NONDISPLACED INTERTROCHANTERIC FRACTURE of the RIGHT PROXIMAL FEMUR.
2. Minimal bilateral osteoarthritis of the hips.
3. Severe calcific atherosclerotic plaque in the iliac and femoral arteries.
TTE
CONCLUSIONS
Left ventricular ejection fraction is approximately 50%, by visual assessment.
Basal to mid anteroseptal, inferoseptal, and inferior hypokinesis.
Normal right ventricular size and function.
Aortic sclerosis without stenosis.
Mild tricuspid regurgitation. Estimated pulmonary artery pressure of 35-40
mmHg.
Right Hip Fracture -
Multifactorial, traumatic and age related osteoporosis
-admitted to med/surg
-Ortho consulted, aware of admission
-s/p Plavix washout
-s/p OR morning of 06/03 - right hip gamma nail
-pain control
-PT/OT - WBAT with assist device
-DVT PPx -lovenox subQ
-Cardiology consult for pre-op clearance appreciated
CAD s/p CABG
HLD
-patient's sister in law confirms remote hx CABG (10-15 years ago) and no PCI within past year
-request outpatient Cardiology notes
-MOUNTER Asa 81mg PO QD
-MOUNTER Metoprolol
-MOUNTER Statin
-hold Plavix - will hold while receiving Lovenox for DVT PPx as PCI over one year ago. Per Cardiology, OK to hold indefinitely
-Cardiology consult appreciated
-TTE results above
-monitor on tele for 24-48 hours post-op
SVT - Atrial Tachycardia
-morning of 06/04 patient with new atach and complained of pleuritic chest pain (although history difficult with dementia)
-s/p CTA without e/o PE
-reviewed strips with Cardiology
-Atrial tachycardia overnight likely AE anesthesia? will monitor another 24 hours and plan to DC to rehab tomorrow
-s/p recent echo
-add on Mag
Urinary Retention from blocked nguyen catheter
-catheter exchanged on 06/04 with good output, normal renal function
NIDDM
-diabetic diet
-ISS low
GERD
-MOUNTER Protonix
Hx Dementia
Severe White Matter Leukoaraiosis is a valid diagnosis
DVT PPx SCD's
DNR - on paperwork for [facility]
Anticipated Discharge: Within 24 hours
Subjective/Interval History
-
Date of Service: June 05, 2024
more comfortable this morning
ate breakfast
denies chest pain
Objective Data
-
Labs:
Laboratory Results
06/05/24
05:23
WBC 8.9
Hgb 9.6 L
Hct 28.0 L
Plt Count 191
Sodium 141
Potassium 4.4
Chloride 110 H
Carbon Dioxide 21 L
BUN 30 H
Creatinine 1.1
Glucose 149 H
Calcium 8.6
Vital Signs:
Vital Signs
Temp Pulse Resp BP Pulse Ox
99.0 F 83 18 124/73 96
06/05/24 07:00 06/05/24 07:00 06/05/24 07:00 06/05/24 07:00 06/05/24 07:00
I&O
06/04/24 06/05/24 06/06/24
06:59 06:59 06:59
Intake Total 530 / 530 90 / 90
Output Total 400 / 400 1275 / 1275
Balance 130 / 130 -1185 / -1185
Review of Systems
-
History Source: Patient
All other systems: Reviewed and negative
Physical Exam
-
General: Comfortable
HEENT: Moist Mucous Membranes
Respiratory: Clear to Auscultation
Cardiac: Regular Rhythm and S1/S2
GI: Soft and Nontender
Musculoskeletal: No Edema
Neuro: Awake, Alert and Oriented (self)
Psych: Calm and Confused; Negative Agitated
Data Reviewed
-
Diagnostic Radiology: Report Reviewed by me
Labs: Labs Reviewed by me
[2024-06-05 10:15] LABS: Magnesium 2.3 mg/dl (1.6-2.3)
[2024-06-05 11:52] LABS: Glucose - Point of Care 187 mg/dl (70-99)
[2024-06-05 16:02] LABS: Glucose - Point of Care 147 mg/dl (70-99)
[2024-06-05] MEDS: NOVOLOG FLEXPEN-LOW RESISTANCE SC (17:53)
[2024-06-05] MEDS: LIPITOR 20 MG PO (18:23)
[2024-06-05 21:56] LABS: Glucose - Point of Care 170 mg/dl (70-99)
[2024-06-06 03:34] VITALS: BP 163/83
[2024-06-06 07:05] VITALS: BP 159/92
[2024-06-06 07:56] LABS: Glucose - Point of Care 163 mg/dl (70-99)
[2024-06-06] MEDS: ASPIR LOW (ENTERIC COATED) 81 MG PO (07:57)
[2024-06-06] MEDS: LOVENOX 40 MG SC (07:57)
[2024-06-06] MEDS: PROTONIX 40 MG PO (07:58)
[2024-06-06] MEDS: TOPROL XL 25 MG PO (07:58)
[2024-06-06] MEDS: DESENEX/MITRAZOL/ZEASORB 1 APPLIC TOPICAL (07:58)
[2024-06-06] MEDS: COLACE 100 MG PO (07:58)
[2024-06-06] MEDS: TRIAMCINOLONE ACETONIDE 0.1% CREAM 1 APPLIC TOPICAL (07:58)
[2024-06-06] MEDS: NOVOLOG FLEXPEN-LOW RESISTANCE 1 UNITS SC (08:17)
--- NOTE | 2024-06-06 09:32 | W.PN.HOSP.TC ---
Today's Communication/Plan
-
OK for DC today
Assessment / Plan
Assessment / Plan
Mr. Dipak Fabian is a 78 yo man with hx CAD (s/p CABG), GERD, HTN, HLD, chronic indwelling nguyen catheter presents to the ER post fall with resulting right hip pain found to have right hip fracture now s/p OR post plavix washout on 06/03.
HEAD CT
IMPRESSION:
1. No CT evidence for acute intracranial hemorrhage.
2. SEVERE WHITE MATTER LEUKOARAIOSIS in the frontal and parietal lobes.
3. 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
4. Moderate diffuse cerebral and cerebellar volume loss.
5. Moderate left maxillary sinusitis.
Hip X-Ray
IMPRESSION:
1. ACUTE NONDISPLACED INTERTROCHANTERIC FRACTURE of the RIGHT PROXIMAL FEMUR.
2. Minimal bilateral osteoarthritis of the hips.
3. Severe calcific atherosclerotic plaque in the iliac and femoral arteries.
TTE
CONCLUSIONS
Left ventricular ejection fraction is approximately 50%, by visual assessment.
Basal to mid anteroseptal, inferoseptal, and inferior hypokinesis.
Normal right ventricular size and function.
Aortic sclerosis without stenosis.
Mild tricuspid regurgitation. Estimated pulmonary artery pressure of 35-40
mmHg.
Right Hip Fracture -
Multifactorial, traumatic and age related osteoporosis
-admitted to med/surg
-Ortho consulted, aware of admission
-s/p Plavix washout
-s/p OR morning of 06/03 - right hip gamma nail
-pain control
-PT/OT - WBAT with assist device
-DVT PPx -lovenox subQ
-Cardiology consult for pre-op clearance appreciated
CAD s/p CABG
HLD
-patient's sister in law confirms remote hx CABG (10-15 years ago) and no PCI within past year
-request outpatient Cardiology notes
-HOTEL NIGHT AUDITOR Asa 81mg PO QD
-HOTEL NIGHT AUDITOR Metoprolol
-HOTEL NIGHT AUDITOR Statin
-hold Plavix - will hold while receiving Lovenox for DVT PPx as PCI over one year ago. Per Cardiology, OK to hold indefinitely
-Cardiology consult appreciated
-TTE results above
-monitor on tele for 24-48 hours post-op
SVT - Atrial Tachycardia
-morning of 06/04 patient with new atach and complained of pleuritic chest pain (although history difficult with dementia)
-s/p CTA without e/o PE
-reviewed strips with Cardiology
-Atrial tachycardia overnight likely AE anesthesia? no events on tele overnight --> OK for DC
-s/p recent echo
-add on Mag
Urinary Retention from blocked nguyen catheter
-catheter exchanged on 06/04 with good output, normal renal function
NIDDM
-diabetic diet
-ISS low
GERD
-HOTEL NIGHT AUDITOR Protonix
Hx Dementia
Severe White Matter Leukoaraiosis is a valid diagnosis
DVT PPx SCD's
DNR - on paperwork for [facility]
Anticipated Discharge: Today
Subjective/Interval History
-
Date of Service: June 06, 2024
eating breakfast
no complaints
Objective Data
-
Vital Signs:
Vital Signs
Temp Pulse Resp BP Pulse Ox
99.3 F 101 17 159/92 96
06/06/24 07:05 06/06/24 07:05 06/06/24 07:05 06/06/24 07:05 06/06/24 07:05
I&O
06/05/24 06/06/24 06/07/24
06:59 06:59 06:59
Intake Total 90 / 90 90 / 90
Output Total 1275 / 1275 600 / 600
Balance -1185 / -1185 -510 / -510
Review of Systems
-
Unable to obtain full review of systems at this time due to: Dementia
History Source: Patient
Physical Exam
-
General: Comfortable
HEENT: Moist Mucous Membranes
Respiratory: Clear to Auscultation
Cardiac: Regular Rhythm and S1/S2
GI: Soft and Nontender
Musculoskeletal: No Edema
Neuro: Awake, Alert and Oriented (self)
Psych: Calm and Confused; Negative Agitated
Data Reviewed
-
Diagnostic Radiology: Report Reviewed by me
Labs: Labs Reviewed by me
--- NOTE | 2024-06-06 09:40 | W.DS.TRANS ---
DC Summary - Corrections Unit Supervisor
-
Discharge Instructions:
Discharge Diagnosis/Procedures POSTOPERATIVE DIAGNOSIS: Right
intertrochanteric hip fracture; PROCEDURE: Open
reduction internal fixation right hip with a
gamma
nail on 06/03/24
Diet Regular
Activity As tolerated
Driving Restrictions No driving
Bathing Restrictions None
Others Tests follow up x-rays to be ordered by Dr. Olson
Other Services PT,OT
Instructions:
Stand-Alone Forms:
Changes to Home Medications: Yes
Discharge Medications:
DC Medications w/original date entered in [employer]
acetaminophen 325 mg tablet 650 mg PO Q4HPRN PRN mild pain/temp>100f 10/25/21
aspirin 81 mg tablet,delayed release 81 mg PO DAILY Blood clot prevention/tx 10/25/21
bisacodyl 10 mg rectal suppository (Dulcolax (bisacodyl)) 10 mg ID DAILYPRN PRN if mom ineffective 10/25/21
loperamide 2 mg capsule 2 mg PO Q8HPRN PRN loose stool 10/25/21
magnesium hydroxide 400 mg/5 mL oral suspension (Milk of Magnesia) 30 ml PO DAILYPRN PRN if no bm x 3 days 10/25/21
metoprolol succinate 25 mg tablet,extended release 24 hr 25 mg PO DAILY Blood pressure 10/25/21
pantoprazole 40 mg tablet,delayed release 40 mg PO DAILY GERD 10/25/21
sodium phosphates 19 gram-7 gram/118 mL enema (Fleet Enema) 118 ml ID DAILYPRN PRN if dulcolax ineffective 10/25/21
atorvastatin 20 mg tablet 20 mg PO QPM High cholesterol 03/11/22
docusate sodium 100 mg capsule 100 mg PO MoWeFr@0800,1900 Constipation 03/24/23
emollient 1 applic topical TID b/l ear ##0 03/24/23
ferrous sulfate 325 mg (65 mg iron) tablet 325 mg PO DAILY Supplement 03/24/23
metformin 500 mg tablet 500 mg PO BID diabetes 03/24/23
polyethylene glycol 3350 17 gram oral powder packet (Miralax) 17 g PO MOWEFR constipation 03/24/23
triamcinolone acetonide 0.1 % topical cream 1 applic topical BID b/l ears 03/24/23
enoxaparin 40 mg/0.4 mL subcutaneous syringe 40 mg (0.4 mL) SC DAILY #10 mL 06/06/24
oxycodone 5 mg tablet 5 mg PO Q6H PRN severe pain #14 tabs 06/06/24
Home Medication Changes
Lovenox subQ x 4 weeks total (through 07/01/24)
OK to Stop Plavix, especially while on Lovenox for DVT Prophylaxis
You are prescribed Oxycodone to help with pain
Pending Results: No
--- NOTE | 2024-06-06 10:29 | CM ---
MD entered order for discharge .
Spoke with Judy Bashir she said printer repair technician bed ready .Update in care report sent.
Spoke with Eli and Chito brother both agrees with dc to [facility] .
Reviewed IMM with Chito and he agrees with dc to [facility].
Ambulance form done.
[facility]
Report [phone]

PLAN Return to [facility] Pt
[2024-06-06 11:04] VITALS: BP 155/84
[2024-06-06 12:04] LABS: Glucose - Point of Care 171 mg/dl (70-99)
--- NOTE | 2024-06-06 12:21 | W.DCSUMMARY ---
Discharge Summary
Discharge Data
Date of Admission: 05/31/24
Date of Discharge: 06/06/24
-
Pending Results: No
Hospital Course
Discharging Physician : Dr. Martina Cedillo
Disposition : SNF
Primary care physician : Dr. Ash Ying
Principal Discharge diagnosis : POSTOPERATIVE DIAGNOSIS: Right intertrochanteric hip fracture; PROCEDURE: Open reduction internal fixation right hip with a gamma
nail on 06/03/24
Hospital Course :
Mr. Dipak Fabian is a 78 yo man with hx dementia, CAD (s/p CABG), GERD, HTN, HLD, chronic indwelling nguyen catheter presents to the ER post fall with resulting right hip pain. He was found to have an acute nondisplaced intertrochanteric fracture of
the right proximal femur. He was admitted to medicine with Orthopedics consulting. Given patient was on Aspirin, surgery delayed for Plavix washout. Cardiology consulted for pre-op clearance. He underwent open reduction internal fixation of
right hip with a gamma nail on 06/03/24.
POD 1 patient had brief atrial tachycardia and reported pleuritic chest pain. CTA obtained which was negative for PE and these symptoms resolved post small bolus of fluids. Troponin with very minimal elevation (0.036 - non ischemic myocardial
injury in setting of tachycardia), patient complained of no further chest discomfort. It was noted his nguyen catheter had a blockage and his nguyen was exchanged with good urine output. Atrial tachycardia may have been AE from anesthesia, no
further events evening prior to discharge. TTE obtained pre-op with EF 50%, results below.
Patient is ready for discharge on 06/06/24. He is prescribed Lovenox for DVT PPx. He is told to stop Plavix as PCI is remote, especially while receiving Lovenox. He is to follow up with outpatient providers on whether or not Plavix is to be
resumed.
For post-op care: Dresing to be removed 06/10/24. The sutures do not need to be removed because they are absorbable. Follow up with Dr. Olson in four weeks for x-rays, AP and lateral, of the right femur in
the office
Time spent on discharge is 35 minutes.
Important imaging findings :
HEAD CT
IMPRESSION:
1. No CT evidence for acute intracranial hemorrhage.
2. SEVERE WHITE MATTER LEUKOARAIOSIS in the frontal and parietal lobes.
3. 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
4. Moderate diffuse cerebral and cerebellar volume loss.
5. Moderate left maxillary sinusitis.
Hip X-Ray
IMPRESSION:
1. ACUTE NONDISPLACED INTERTROCHANTERIC FRACTURE of the RIGHT PROXIMAL FEMUR.
2. Minimal bilateral osteoarthritis of the hips.
3. Severe calcific atherosclerotic plaque in the iliac and femoral arteries.
TTE 05/31/24
CONCLUSIONS
Left ventricular ejection fraction is approximately 50%, by visual assessment.
Basal to mid anteroseptal, inferoseptal, and inferior hypokinesis.
Normal right ventricular size and function.
Aortic sclerosis without stenosis.
Mild tricuspid regurgitation. Estimated pulmonary artery pressure of 35-40
mmHg.
06/04/24
IMPRESSION:
No CTA evidence for an acute pulmonary thromboembolism within the limitations of respiratory motion artifact and streak artifact.
Procedure findings :
06/03/24
POSTOPERATIVE DIAGNOSIS: Right intertrochanteric hip fracture.
PROCEDURE: Open reduction internal fixation right hip with a gamma
nail.
Discharge Plan
-
Patient Disposition: Longterm/SNF
Discharge Diagnosis/Procedures: POSTOPERATIVE DIAGNOSIS: Right intertrochanteric hip fracture; PROCEDURE: Open reduction internal fixation right hip with a gamma
nail on 06/03/24
Diet: Regular
Activity: As tolerated
Driving Restrictions: No driving
Bathing Restrictions: None
Others Tests: follow up x-rays to be ordered by Dr. Olson
Other Services: PT and OT
Activity Restrictions/Additional Instructions:
Dresing removed 06/10/24. The sutures do not
need to be removed because they are absorbable. Follow up with Dr. Olson in four weeks for x-rays, AP and lateral, of the right femur in
the office.
Referrals:
Ash Ying I., DO [Family Provider] - in less than 1 week
Cindy Olson I., DO [Active] - in three to four weeks
Additional Discharge Medication Instructions: Lovenox subQ x 4 weeks total (through 07/01/24)
OK to Stop Plavix, especially while on Lovenox for DVT Prophylaxis
You are prescribed Oxycodone to help with pain
Prescriptions:
New
enoxaparin 40 mg/0.4 mL Syringe
40 mg SC DAILY Qty: 10 0RF
oxycodone 5 mg tablet
5 mg PO Q6H PRN (Reason: severe pain) Qty: 14 0RF
Continued
acetaminophen 325 mg Tablet
650 mg PO Q4HPRN PRN (Reason: mild pain/temp>100f)
loperamide 2 mg Capsule
2 mg PO Q8HPRN PRN (Reason: loose stool)
aspirin 81 mg Tablet,Delayed Release (Dr/Ec)
81 mg PO DAILY
magnesium hydroxide [Milk of Magnesia] 400 mg/5 mL Suspension
30 ml PO DAILYPRN PRN (Reason: if no bm x 3 days)
bisacodyl [Dulcolax (bisacodyl)] 10 mg Suppository
[address] DAILYPRN PRN (Reason: if mom ineffective)
pantoprazole 40 mg Tablet,Delayed Release (Dr/Ec)
40 mg PO DAILY
Fleet Enema 19-7 gram/118 mL Enema
[address] DAILYPRN PRN (Reason: if dulcolax ineffective)
metoprolol succinate 25 mg Tablet Extended Release 24 Hr
25 mg PO DAILY
atorvastatin 20 mg tablet
20 mg PO QPM
metformin 500 mg tablet
500 mg PO BID
polyethylene glycol 3350 [Miralax] 17 gram Powder In Packet
17 g PO MOWEFR
triamcinolone acetonide 0.1 % cream
1 applic TOPICAL BID
Rx Instructions:
apply to b/l ears
ferrous sulfate 325 mg (65 mg iron) Tablet
325 mg PO DAILY
docusate sodium 100 mg Capsule
100 mg PO MoWeFr@0800,1900
emollient Cream
1 applic TOPICAL TID Qty: 0
Rx Instructions:
apply to b/l ear
Discontinued
clopidogrel 75 mg Tablet
75 mg PO DAILY 30 Days Qty: 30 0RF
Discharge Orders:
Discharge Patient (As Directed); Ordered 06/06/24
Ordered By: Martina Cedillo
Discharge Date and Time
Print Language: GEORGIAN
== END 2024-06-06 12:26 | DRG 481 ==
LOC: 3 WEST ACU 10:58
PROVIDERS: Nurse Practitioner Family; ADMITTING PHYSICIAN Student in an Organized Health Care Education/Training Program; CONSULT PHYSICIAN Internal Medicine; CONSULT PHYSICIAN Orthopaedic Surgery; EMERGENCY PHYSICIAN Student in an Organized Health Care Education/Training Program; FAMILY PHYSICIAN Internal Medicine
PROC: 0QS636Z Reposition Right Upper Femur with Intramedullary Internal Fixation Device, Percutaneous Approach (ICD-10-PCS; 2024-06-03)
DX: M80.051A Age-related osteoporosis with current pathological fracture, right femur, initial encounter for fracture (principal); F02.83 Dementia in other diseases classified elsewhere, unspecified severity, with mood disturbance; F02.84 Dementia in other diseases classified elsewhere, unspecified severity, with anxiety; J84.9 Interstitial pulmonary disease, unspecified; I47.19 Other supraventricular tachycardia; I5A Non-ischemic myocardial injury (non-traumatic); I67.81 Acute cerebrovascular insufficiency; Z66 Do not resuscitate; K21.9 Gastro-esophageal reflux disease without esophagitis; N18.31 Chronic kidney disease, stage 3a; I12.9 Hypertensive chronic kidney disease with stage 1 through stage 4 chronic kidney disease, or unspecified chronic kidney disease; I25.10 Atherosclerotic heart disease of native coronary artery without angina pectoris; I25.2 Old myocardial infarction; G30.9 Alzheimer's disease, unspecified; F32.A Depression, unspecified; J43.9 Emphysema, unspecified; E11.22 Type 2 diabetes mellitus with diabetic chronic kidney disease; E78.00 Pure hypercholesterolemia, unspecified; K59.00 Constipation, unspecified; N31.9 Neuromuscular dysfunction of bladder, unspecified; R07.89 Other chest pain; R33.8 Other retention of urine; T83.091A Other mechanical complication of indwelling urethral catheter, initial encounter; Y73.2 Prosthetic and other implants, materials and accessory gastroenterology and urology devices associated with adverse incidents; W19.XXXA Unspecified fall, initial encounter; Z95.5 Presence of coronary angioplasty implant and graft; Z95.1 Presence of aortocoronary bypass graft; Z87.891 Personal history of nicotine dependence; Z86.73 Personal history of transient ischemic attack (TIA), and cerebral infarction without residual deficits; Z79.02 Long term (current) use of antithrombotics/antiplatelets; Z79.82 Long term (current) use of aspirin; Z79.84 Long term (current) use of oral hypoglycemic drugs; Z79.899 Other long term (current) drug therapy
CPT/HCPCS: 70450; 71275; 73502; 73552; 76000; 80048; 80053; 81003; 81015; 82962; 83036; 83735; 84484; 85025; 85027; 85610; 86850; 86900; 86901; 87070; 87086; 93005; 93306; 96374; 97163; 97167; 97530; 99285; C1713; Q9967

== ENCOUNTER 2024-06-21 20:00 | Inpatient (IN) | payer MEDICARE, OTHER, SELFPAY ==
[2024-06-21] VITALS (12 sets, daily range): BP systolic 94–145; BP diastolic 63–110; BMI 24.8; BMI 26.4
[2024-06-21 15:07] LABS: % Basophils 0.2 % (0-2); % Eosinophils 2.5 % (0-6); % Immature Granulocytes 0.4 % (0-0.5); % Lymphocytes 15.8 % (20.5-51.1); % Monocytes 4.7 % (1.7-9.3); % Neutrophils 76.4 % (42.2-75.2); Absolute Eosinophils 0.3 10^3/uL (0-0.7); Absolute Immature Granulocytes 0.1 10^3/uL (0-0.05); Absolute Lymphocytes 2.2 10^3/uL (1.2-3.4); Absolute Monocytes 0.7 10^3/uL (0.1-0.6); Absolute Neutrophils 10.5 10^3/uL (1.4-6.5); Hematocrit 40.2 % (39.0-52.0); Hemoglobin 13.2 g/dL (13.0-18.0); Mean Corp Hgb Conc. 32.8 g/dL (33.0-37.0); Mean Corpuscular Volume 85.2 fL (80.0-94.0); Mean Platelet Volume 10.7 fL (7.4-10.4); Nucleated Red Blood Cells % 0 % (-); Platelet Count 425 10^3/uL (130-400); Red Blood Cell Count 4.72 10^6/uL (4.70-6.10); Red Cell Dist. Width 13.5 % (11.5-14.5); White Blood Cell Count 13.7 10^3/uL (4.8-10.8)
[2024-06-21 15:10] LABS: Urine Albumin 4+ (Neg - Trace); Urine Bilirubin 1+ (Negative); Urine Character Cloudy (Clear); Urine Color Amber; Urine Glucose Negative (Negative); Urine Ketone 2+ (Negative); Urine Leukocyte 3+ (Negative); Urine Nitrite Positive (Negative); Urine Occult Blood 4+ (Negative); Urine Specific Gravity 1.025 (<1.030); Urine Urobilinogen 1+ (Neg - 1+)
[2024-06-21 15:16] LABS: Urine Squamous Cell 0-2 /LPF (Few)
[2024-06-21 15:17] LABS: Urine Bacteria Many (Negative); Urine White Cell 26-30 /HPF (0-5); Urine Yeast Many (Negative)
[2024-06-21 15:32] LABS: ALT (SGPT) 26 U/L (0-50); AST (SGOT) 31 U/L (17-59); Albumin 4.5 g/dl (3.5-5.0); Alkaline Phosphatase 159 U/L (38-126); Blood Urea Nitrogen 60 mg/dl (9-20); Calcium 9.8 mg/dl (8.4-10.2); Carbon Dioxide 18 mmol/L (22-30); Chloride 107 mmol/L (98-107); Glucose 175 mg/dl (70-99); Potassium 5.6 mmol/L (3.5-5.1); Sodium 141 mmol/L (135-145); Total Bilirubin 0.8 mg/dl (0.2-1.3); Total Protein 7.8 g/dl (6.3-8.2); eGFR 38.05
--- NOTE | 2024-06-21 16:51 | ED.GENMED ---
History of Present Illness
General
Chief Complaint: Abdominal Pain
Source: patient and records
Exam Limitations: dementia
Time Seen by Provider: 06/21/24 16:34
History of Present Illness
History of Present Illness:
78yoM with a history of dementia, coronary artery disease s/p CABG, hypertension, hyperlipidemia, and chronic indwelling Cummins presenting via EMS from his nursing facility for evaluation of abdominal pain. Patient reports that his abdominal pain
started around 2pm this afternoon. He also feels short of breath. At one point, he reported chest pain but subsequently said he did not have any chest discomfort. No reported vomiting or fevers. The nursing facility reported some constipation to
EMS. Of note, patient was recently hospitalized last month for a hip fracture.
Past History
Past History
ED Past Medical History: CAD, GERD, HTN, Hypercholesterolemia, NIDDM, [place], Psychiatric (Anxiety/depression) and Other (Cognitive impairment)
ED Past Surgical History: Cardiac (CABG, Stents X 3)
Social History
Tobacco: Non-smoker
Alcohol: None
Drug: None
Personal:
Living: longterm
Phy Exam
Physical Exam
Physical Exam:
Appears uncomfortable, non-toxic
General Physical Exam
General Presentation: mild distress
General Skin: warm and dry
General Habitus: elderly
General Mental: alert
ENT Exam
ENT Exam: normocephalic
Cardiovascular Exam
Cardiovascular Exam: regular rate/rhythm
Pulmonary Exam
Pulmonary Exam: lungs clear, no respiratory distress, no rales, no crackles and no rhonchi
Gastrointestinal Exam
Gastrointestinal Exam: other (Abdomen mildly distended with generalized tenderness.)
Neurological Exam
Neurological Exam: alert
Skin Exam
Skin Exam: normal color and warm/dry
Course
Orders/Labs/Results
Orders:
Orders
06/21/24 14:58
Complete Blood Count/With Diff Urgent
Comprehensive Metabolic Panel Urgent
Urinalysis Urgent
Date Specimen was Collected: 06/21/24
Time Specimen was Collected: 14:52
Urine Microscopic Urgent
Date Specimen was Collected: 06/21/24
Time Specimen was Collected: 14:52
06/21/24 16:49
Electrocardiogram (*1) Urgent
Reason for Study: Shortness of Breath
CT Pe/abd/pel W Urgent
Comment:
Reason For Exam: SOB, abdominal pain
EKG- Treatment ONCE
0.9% Sodium Chloride 500 ml [Nss] 500 ml IV BOLUS
06/21/24 16:50
Fentanyl Citrate/Pf [Sublimaze] 50 mcg IV NOW STA
06/21/24 17:07
Lactate Level [Lactic Acid] Urgent
Troponin I Urgent
06/21/24 18:39
0.9% Sodium Chloride 500 ml [Nss] 500 ml IV BOLUS
06/21/24 19:12
Ertapenem [Invanz] 1,000 mg 0.9% Sodium Chloride [Nss] 50 ml IV NOW
06/21/24 19:38
Blood Culture Q30M
SANDY Source: Blood/Venous
Specimen Description:
Blood Culture Q30M
SANDY Source: Blood/Venous
Specimen Description:
06/21/24 19:44
Admit/Transfer Patient As Directed
Co-Sign Provider:
Level of Care: Inpatient admission
Assign to:: Medical/Surgical
Physician / Group: Jazmin Benedict
Diagnosis: Urinary tract infection, acute kidney injury, constipation
Reason for Hospitalization: Urinary tract infection, acute kidney injury, constipation
Expected length of stay greater than two midnights?: Yes
ELOS- Estimated Length of Stay in days: 3
I certify the patient meets the requirements for IP care: Yes
PRN Pain Medication Management As Directed
May give lesser potent ordered pain med per pt: Yes
preference::
Protocol:: Medication orders for pain may be administered in a
manner that supports deferring to patient preference
when the pt is:
- Requesting an ordered lesser potent pain medication.
Least to most potent pain medications are defined
as: acetaminophen < NSAID < tramadol < opioids
(morphine, oxycodone, hydromorphone).
- Requesting a lesser dose of the same medication IF
ORDERED.
- Requesting a less intrusive route of administration
if both routes are prescribed by the provider (PO <
IV).
06/21/24 19:46
Code Status As Directed
Resuscitation Status: Do not resuscitate
Based on pt advanced directive or healthcare POA form: Yes
DNR Bracelet Application ONCE
06/21/24 19:52
Cummins Catheter [Catheter- Indwelling] As Directed
Reason for insertion: Chronic Cummins on Admit
Comment: please place new Cummins now
06/21/24 20:10
HYDROmorphone [Dilaudid] 0.5 mg IV Q3HPRN PRN
06/21/24 21:04
0.9% Sodium Chloride 1000 ml [Nss] 1,000 ml IV 100 mls/hr
Abnormal Lab Results
06/21/24 06/21/24
14:58 17:07
WBC 13.7 H 10^3/uL
(4.8-10.8)
MCHC 32.8 L g/dL
(33.0-37.0)
Plt Count 425 H 10^3/uL
(130-400)
MPV 10.7 H fL
(7.4-10.4)
Abs Immat Gran (auto) 0.1 H 10^3/uL
(0-0.05)
Absolute Neuts (auto) 10.5 H 10^3/uL
(1.4-6.5)
Absolute Monos (auto) 0.7 H 10^3/uL
(0.1-0.6)
Neutrophils % 76.4 H %
(42.2-75.2)
Lymphocytes % 15.8 L %
(20.5-51.1)
Potassium 5.6 H mmol/L
(3.5-5.1)
Carbon Dioxide 18 L mmol/L
(22-30)
BUN 60 H mg/dl
(9-20)
Creatinine 1.8 H mg/dL
(0.7-1.3)
Glucose 175 H mg/dl
(70-99)
Lactic Acid 3.1 H mmol/L
(0.7-2.0)
Alkaline Phosphatase 159 H U/L
(38-126)
Urine Ketones 2+ A
(Negative)
Urine Occult Blood 4+ A
(Negative)
Urine Nitrite Positive A
(Negative)
Urine Bilirubin 1+ A
(Negative)
Ur Leukocyte Esterase 3+ A
(Negative)
Urine RBC 7-10 A /HPF
(0-2)
Urine WBC 26-30 A /HPF
(0-5)
Urine Bacteria Many A
(Negative)
Urine Yeast Many A
(Negative)
Urine Albumin 4+ A
(Neg - Trace)
06/21/24 14:58
06/21/24 14:58
Vital Signs
Initial and Last Documented VS:
Initial Vital Signs
Temp Pulse Resp BP Pulse Ox
97.6 F 95 18 110/74 95
06/21/24 14:43 06/21/24 14:43 06/21/24 14:43 06/21/24 14:43 06/21/24 14:43
Last Documented Vital Signs
Temp Pulse Resp BP Pulse Ox
97.6 F 82 16 94/66 96
06/21/24 16:41 06/21/24 22:45 06/21/24 22:45 06/21/24 22:00 06/21/24 22:15
MDM/Problems Addressed
Differential Diagnosis Includes:
78yoM presenting from his longterm for abd pain. Hx of dementia. Also c/o SOB during exam. Recently admitted for hip fracture. VSS. He does appear uncomfortable during exam and is clutching his abdomen. Abdomen is mildly distended without
signs of peritonitis. Differential diagnosis includes but is not limited to: Diverticulitis, appendicitis, perforated viscus, ischemic colitis, constipation, UTI, ACS, PE
Initial ED plan: Labs and UA obtained in triage. Creatinine 1.8, up from baseline of 1.1. White count is 13.7. UA is nitrite positive with many bacteria. Will check lactate, troponin EKG, and CTA CAP. IV fentanyl and fluid bolus for symptoms.
*EKG
Interpreted by ED Provider?: Yes
EKG Intrepretation Date: 06/21/24
Heart Rate: 95
Rate: normal
Rhythm: sinus
[place]: normal axis
Interval: long QT (517)
Ischemia: non-specific ST changes
*Critical Care Note
Total Time (30-74mins, 75-104mins- exclusive of procedures): Not Applicable
Update Note
Update Note:
Lactate elevated at 3.1. EKG shows nonspecific ST/T wave changes which were also noted on prior EKG. Troponin within normal limits. CT shows findings suspicious of cystitis as well as constipation. No other acute findings. IV ertapenem ordered
based on prior urine culture result. He was admitted for further management.
ED Attending Note
-
Portions of this chart may have been created with voice recognition software.� Occasional wrong word or��sound alike� substitutions may have occurred due to the inherent limitations of voice recognition software.
Discharge Plan
Departure
Patient Disposition: Admit
Date of Disposition: 06/21/24
Time of Disposition: 18:42
Presentation/result/management discussed w/ accepting MD/DO: Hospitalist
Discharge Problem:
Urinary tract infection, Acute kidney injury
Interventions
Interventions:
*Risk Screen - Suicide Last Done: 06/21/24 16:41
*General Assessment Last Done: 06/21/24 14:43
*Neglect/Abuse Screening Last Done: 06/21/24 14:43
*ED- Fall Risk Assessment Last Done: 06/21/24 16:41
*ED COVID-19 Vaccine History Last Done: 06/21/24 16:41
*Nursing Disposition Last Done: 06/21/24 23:15
KL-Hsfrhz-Lkguqidfcw Assessment Last Done: 06/21/24 16:41
Discharge Date and Time
Discharge Date/Time: 06/21/24 23:16
[2024-06-21] MEDS: SUBLIMAZE 50 MCG IV (17:10)
[2024-06-21] MEDS: NSS 500 IV ×2 (17:11→19:41)
[2024-06-21 17:27] LABS: Lactic Acid 3.1 mmol/L (0.7-2.0)
[2024-06-21 17:40] LABS: Troponin I 0.014 ng/ml
--- NOTE | 2024-06-21 18:54 | HPS.HSE ---
Family Physician
-
Family Physician: NOT KNOW UNKNOWN - PT DOES
Chief Complaint
-
Abdominal pain
History of Present Illness
Patient is a 78-year-old male with past medical history significant for coronary artery disease s/p CABG, essential hypertension, hyperlipidemia, DM-II, CKD Stage 3A, emphysema/interstitial lung disease, Alzheimer's Dementia, anxiety/depression,
neurogenic bladder with chronic nguyen catheter and GERD who presented [place] [facility] for evaluation of abdominal pain. Patient reporting sharp RLQ abdominal pain that started this afternoon. He states he is now nauseous as well. He denies any other
discomfort. He denies any vomiting or fevers. Patient reports he had a bowel movement 10 hours ago.
Medical History
Past Medical History
Past Medical History: Reports Other
Additional Past Medical History:
Coronary Artery Disease s/p CABG
Essential Hypertension
Hyperlipidemia
Diabetes Mellitus, Type II
CKD Stage 3A
Emphysema / Interstitial Lung Disease
Alzheimer's Dementia
Anxiety / Depression
Neurogenic Bladder with Chronic Nguyen Catheter
GERD
Past Surgical History: Reports Other
Additional Past Surgical History:
CABG
Social History
Tobacco: Former Smoker
Living: Senior Living
Family History
Family History: Unable to Obtain
Allergies / Home Medications
Allergies reflects when Allergies were last updated in [employer].
Home Medications with original date entered in [employer]
Allergy/Medication List:
Allergies
Allergy/AdvReac Type Severity Reaction Status Date / Time
No Known Allergies Allergy Verified 06/21/24 14:45
Home Medications
acetaminophen 325 mg tablet 650 mg PO Q4HPRN PRN mild pain/temp>100f 10/25/21
aspirin 81 mg tablet,delayed release 81 mg PO DAILY Blood clot prevention/tx 10/25/21
bisacodyl 10 mg rectal suppository (Dulcolax (bisacodyl)) 10 mg TN DAILYPRN PRN if mom ineffective 10/25/21
magnesium hydroxide 400 mg/5 mL oral suspension (Milk of Magnesia) 30 ml PO DAILYPRN PRN if no bm x 3 days 10/25/21
metoprolol succinate 25 mg tablet,extended release 24 hr 25 mg PO DAILY Blood pressure 10/25/21
pantoprazole 40 mg tablet,delayed release 40 mg PO DAILY GERD 10/25/21
sodium phosphates 19 gram-7 gram/118 mL enema (Fleet Enema) 118 ml TN DAILYPRN PRN if dulcolax ineffective after 24 hours 10/25/21
atorvastatin 20 mg tablet 20 mg PO HS High cholesterol 03/11/22
docusate sodium 100 mg capsule 100 mg PO MoWeFr@0800,1900 Constipation 03/24/23
emollient 1 applic topical TID b/l ear ##0 03/24/23
ferrous sulfate 325 mg (65 mg iron) tablet 325 mg PO DAILY Supplement 03/24/23
metformin 500 mg tablet 500 mg PO BID diabetes 03/24/23
polyethylene glycol 3350 17 gram oral powder packet (Miralax) 17 g PO MOWEFR constipation 03/24/23
triamcinolone acetonide 0.1 % topical cream 1 applic topical BID b/l ears 03/24/23
enoxaparin 40 mg/0.4 mL subcutaneous syringe 40 mg (0.4 mL) SC DAILY #10 mL 06/06/24
clopidogrel 75 mg tablet (Plavix) 75 mg PO DAILY 06/21/24
loperamide 2 mg tablet 2 mg PO Q8HPRN PRN loose stool 06/21/24
nitrofurantoin monohydrate/macrocrystals 100 mg capsule (Macrobid) 100 mg PO BID 06/21/24
oxycodone 5 mg tablet 5 mg PO DAILY 06/21/24
oxycodone 5 mg tablet 5 mg PO Q6HPRN PRN severe pain 06/21/24
Review of Systems
-
Unable to obtain full review of systems at this time due to: Dementia
History Source: Patient
Abdomen/GI: Reports Abdominal Pain and Nausea
Physical Exam
Vital Signs
Vital Signs
Temp Pulse Resp BP Pulse Ox
97.6 F 94 20 132/70 97
06/21/24 16:41 06/21/24 18:45 06/21/24 18:45 06/21/24 18:00 06/21/24 18:45
Physical Exam
General: Well Developed, Well Nourished and Pain
HEENT: NormoCephalic, Moist mucous membranes, Atraumatic, Nose Appears Normal and Ears Appear Normal
Respiratory: Clear
Cardiac: S1/S2 and Regular Rhythm
GI: Soft, Normal Bowel Sounds and Tender
Rectal: Deferred by Provider
Genito-urinary: Turbid Urine and Nguyen
Musculoskeletal: No Clubbing, No Cyanosis and No Edema
Skin: IV/Catheter Site
Neuro: Awake, Alert and Nonfocal/grossly intact
Psych: Calm and Apparent Dementia
Laboratory Results
-
06/21/24 14:58
06/21/24 14:58
Laboratory Results
Lactic Acid 3.1 mmol/L (0.7-2.0) H 06/21/24 17:07
Total Bilirubin 0.8 mg/dl (0.2-1.3) 06/21/24 14:58
AST 31 U/L (17-59) 06/21/24 14:58
ALT 26 U/L (0-50) 06/21/24 14:58
Alkaline Phosphatase 159 U/L (38-126) H 06/21/24 14:58
Troponin I 0.014 ng/ml 06/21/24 17:07
Data Reviewed
-
CT Scan: Report Reviewed by me (Abd/Pel CT: 1. Urinary bladder is decompressed around a Nguyen catheter and not well evaluated. Suspect cystitis. 2. Otherwise no significant acute abnormality identified in the chest, abdomen or pelvis, as described
above. No pulmonary embolism. 3. Mild to moderate diffuse colonic stool burden may )
Medical Tests (Nuc Med, Echo, EKG etc): Report Reviewed by me (EKG: NORMAL SINUS RHYTHM ST and T WAVE ABNORMALITY, CONSIDER LATERAL ISCHEMIA PROLONGED QT)
Lab Data: Labs Reviewed by me (WBC 13.7, Neut 76.4, K+ 5.6, BUN 60, Creat 1.8, Lactic 3.1)
Impression/Plan
-
IMPRESSION/PLAN:
#catheter associated urinary tract infection
WBC 13.7, Neut 76.4, Lactic 3.1
UA: indicative UTI
Urine Cx: pending
Blood Cx: pending
- Admit to med/surg
- IV ertapenem r/t previous growth of Klebsiella
- IVF
#abdominal pain
#constipation
EKG: NORMAL SINUS RHYTHM
ST and T WAVE ABNORMALITY, CONSIDER LATERAL ISCHEMIA
PROLONGED QT
Abd/Pel CT: 1. Urinary bladder is decompressed around a Nguyen catheter and not well evaluated. Suspect cystitis.
2. Otherwise no significant acute abnormality identified in the chest, abdomen or pelvis, as described above. No pulmonary embolism.
3. Mild to moderate diffuse colonic stool burden may reflect constipation.
- bowel regimen
- consider enema if patient does not have BM by tomorrow 06/22/2024
#acute kidney injury
#CKD Stage 3A
BUN 60, Creat 1.8
- IVF
- change chronic Nguyen
- monitor BMP
#Coronary Artery Disease
s/p CABG
- continue aspirin, atorvastatin and Plavix
#Essential Hypertension
- continue metoprolol
#Hyperlipidemia
- continue atorvastatin
#Diabetes Mellitus, Type II
- hold metformin in setting of JACOB
- AccuCheck AC & HS
- SSI
#GERD
- continue pantoprazole
#Neurogenic Bladder
Chronic Nguyen Catheter
- change Nguyen catheter
#Emphysema / Interstitial Lung Disease
#Alzheimer's Dementia
#Anxiety / Depression
Code status: DNR
DVT prophylaxis: heparin sq
[2024-06-21] MEDS: INVANZ 60 MG IV (19:31)
--- NOTE | 2024-06-21 19:36 | W.PN.UPDATE ---
Update Note
Progress Note Update
This is an addendum to the H&P written by Karina Guzman on 06/21/2024. Patient seen and examined independently with ACCESS REPRESENTATIVE.
78-year-old male past medical history of dementia, CAD status post CABG, hypertension, hyperlipidemia, GERD, chronic indwelling Cummins catheter, presenting with abdominal pain. Also shortness of breath now resolved. Also chest pain since resolved.
He had a bowel movement yesterday.
On examination abdomen is distended and diffusely tender.
Labs show leukocytosis. Creatinine of 1.8. Potassium 5.6. Lactic acid 3.1. Urinalysis shows cloudy urine, positive nitrates, 26-[address] abdomen pelvis shows decompressed bladder, suspected cystitis. There is mild to moderate diffuse colonic stool burden.
Prior urine culture grew multidrug-resistant Klebsiella only sensitive to ertapenem and meropenem.
Patient with catheter associated UTI with history of multidrug-resistant Klebsiella. Also with JACOB. IV fluids, replace Cummins catheter, urine culture, blood cultures, ertapenem.
Patient also with abdominal pain/distention secondary to constipation. Increase MiraLAX to daily. As needed Dulcolax and enema if no bowel movement.
[2024-06-21] MEDS: DILAUDID 0.5 MG IV (20:27)
[2024-06-21] MEDS: NSS 1000 IV (21:20)
[2024-06-21 22:57] LABS: Lactic Acid 1.6 mmol/L (0.7-2.0)
--- NOTE | 2024-06-21 23:45 | PTCARENOTE ---
Pt arrived to [facility] from ED and was a pullover assist x4 from stretcher to bed. Pt is AAOx1 to self only; bed alarm placed under pt. VSS on admission, bed in lowest position and call schneider within reach.
[2024-06-21] MEDS: HEPARIN 5000 UNITS SC (23:57)
[2024-06-21] MEDS: LIPITOR 20 MG PO (23:57)
[2024-06-21] MEDS: TRIAMCINOLONE ACETONIDE 0.1% CREAM 1 APPLIC TOPICAL (23:57)
[2024-06-22 00:06] LABS: Glucose - Point of Care 100 mg/dl (70-99)
[2024-06-22] MEDS: NSS 1000 IV ×2 (06:35→17:38)
[2024-06-22 08:35] LABS: Glucose - Point of Care 91 mg/dl (70-99)
--- NOTE | 2024-06-22 10:14 | CM ---
CM reviewed chart, patient LTC resident form [facility], history Dementia. Per admissions at [facility], patient is LTC, on a bed hold. Patient is wheelchair level, propels self, mod A for toileting, min A for transfers. Patient PCP Ash
[facility], [facility]. Referral placed to [facility]. CM will continue to follow for all discharge planning needs.
Plan; return to [facility], will require ambulance transport.
[facility]
Report: [phone]
[2024-06-22] MEDS: ASPIR LOW (ENTERIC COATED) 81 MG PO (10:44)
[2024-06-22] MEDS: PROTONIX 40 MG PO (10:44)
[2024-06-22] MEDS: FEOSOL 325 MG PO (10:44)
[2024-06-22] MEDS: PLAVIX 75 MG PO (10:44)
[2024-06-22] MEDS: MIRALAX 17 GRAMS PO (10:44)
[2024-06-22] MEDS: ROXICODONE 5 MG PO (10:44)
[2024-06-22] MEDS: HEPARIN 5000 UNITS SC ×3 (10:45→22:41)
[2024-06-22] MEDS: TOPROL XL 25 MG PO (10:45)
[2024-06-22] MEDS: TRIAMCINOLONE ACETONIDE 0.1% CREAM 1 APPLIC TOPICAL ×2 (10:46→20:41)
[2024-06-22 10:59] LABS: Blood Urea Nitrogen 43 mg/dl (9-20); Calcium 8.8 mg/dl (8.4-10.2); Carbon Dioxide 21 mmol/L (22-30); Chloride 115 mmol/L (98-107); Estimated Creatinine Clearance 38 ml/min; Glucose 101 mg/dl (70-99); Potassium 4.8 mmol/L (3.5-5.1); Sodium 144 mmol/L (135-145); eGFR 56.23
[2024-06-22 11:57] VITALS: BP 106/57; PULSE 69; O2SAT 99
[2024-06-22 13:32] LABS: Hematocrit 29.5 % (39.0-52.0); Hemoglobin 9.5 g/dL (13.0-18.0); Mean Corp Hgb Conc. 32.2 g/dL (33.0-37.0); Mean Corpuscular Hgb 27.9 pg (27.0-31.0); Mean Corpuscular Volume 86.8 fL (80.0-94.0); Red Cell Dist. Width 13.8 % (11.5-14.5); White Blood Cell Count 6.4 10^3/uL (4.8-10.8)
[2024-06-22 13:57] LABS: Mean Platelet Volume 10.5 fL (7.4-10.4); Platelet Count 249 10^3/uL (130-400)
--- NOTE | 2024-06-22 14:25 | W.PN.HOSP.TC ---
Today's Communication/Plan
-
await urine culture
continue ertapenem
Assessment / Plan
Assessment / Plan
NAD
Scleral Anicteric, wearing corrective lenses
DMM
No JVD
CTABL
RRR, S1/S2
Soft, NT, ND, BS+
Cummins catheter in place
Warm, Dry
AA oriented x 1 person
UTI which is likely a catheter associated UTI in the setting of Alzheimer's dementia
Known history of ESBL Klebsiella as recent as of 01/06
Continue ertapenem for now
Await urine culture
JACOB complicated by hyperkalemia in the setting of likely postobstructive uropathy/blocked Cummins
- Cummins catheter was exchanged
- JACOB resolved
- Hyperkalemia resolved on its own
- Monitor renal function
Neurogenic bladder with chronic Cummins
Cummins catheter was exchanged
Constipation
Continue bowel regimen
CAD
S/p CABG, continue DAPT Plavix beta-tammie
Diabetes type 2
Accu-Chek sliding scale goal blood glucose 140-180 carb controlled diet hold metformin patient
GERD
Continue PPI
Anticipated Discharge: 24 - 48 hours
Subjective/Interval History
-
Date of Service: June 22, 2024
Seen and examined. No new complaints. No acute overnight events.
Objective Data
-
Labs:
Laboratory Results
06/22/24
10:21
WBC 6.4
Hgb 9.5 L D
Hct 29.5 L
Plt Count 249 D
Sodium 144
Potassium 4.8
Chloride 115 H
Carbon Dioxide 21 L
BUN 43 H
Creatinine 1.3
Glucose 101 H
Calcium 8.8
Vital Signs:
Vital Signs
Temp Pulse Resp BP Pulse Ox
97.5 F 82 18 121/66 95
06/21/24 23:45 06/22/24 10:45 06/21/24 23:45 06/22/24 10:45 06/21/24 23:45
I&O
06/21/24 06/22/24 06/23/24
06:59 06:59 06:59
Intake Total 720 / 720
Output Total 350 / 350
Balance 370 / 370
[2024-06-22 15:57] VITALS: BP 123/90
[2024-06-22 17:32] LABS: Glucose - Point of Care 120 mg/dl (70-99)
[2024-06-22] MEDS: COLACE 100 MG PO ×2 (17:33→17:44)
[2024-06-22] MEDS: LIPITOR 20 MG PO (22:41)
[2024-06-22 23:18] LABS: Glucose - Point of Care 90 mg/dl (70-99)
[2024-06-22 23:30] VITALS: BP 136/62
[2024-06-23 00:11] VITALS: BP 136/62
[2024-06-23] MEDS: NSS 1000 IV ×2 (03:30→14:05)
[2024-06-23 07:38] VITALS: BP 128/63
[2024-06-23 09:38] LABS: Mean Corp Hgb Conc. 33.3 g/dL (33.0-37.0); Mean Corpuscular Hgb 28.5 pg (27.0-31.0); Mean Corpuscular Volume 85.4 fL (80.0-94.0); Platelet Count 207 10^3/uL (130-400); Red Blood Cell Count 3.16 10^6/uL (4.70-6.10); Red Cell Dist. Width 13.8 % (11.5-14.5); White Blood Cell Count 6.4 10^3/uL (4.8-10.8)
[2024-06-23] MEDS: PLAVIX 75 MG PO (09:38)
[2024-06-23] MEDS: ASPIR LOW (ENTERIC COATED) 81 MG PO (09:38)
[2024-06-23] MEDS: PROTONIX 40 MG PO (09:38)
[2024-06-23] MEDS: ROXICODONE 5 MG PO (09:38)
[2024-06-23] MEDS: MIRALAX 17 GRAMS PO (09:38)
[2024-06-23] MEDS: HEPARIN 5000 UNITS SC ×2 (09:39→16:58)
[2024-06-23] MEDS: FEOSOL 325 MG PO (09:40)
[2024-06-23] MEDS: TOPROL XL 25 MG PO (09:41)
[2024-06-23] MEDS: TRIAMCINOLONE ACETONIDE 0.1% CREAM 1 APPLIC TOPICAL ×2 (09:48→21:36)
[2024-06-23 09:54] LABS: Blood Urea Nitrogen 23 mg/dl (9-20); Calcium 8.5 mg/dl (8.4-10.2); Carbon Dioxide 18 mmol/L (22-30); Estimated Creatinine Clearance 49 ml/min; Glucose 90 mg/dl (70-99); Potassium 4.4 mmol/L (3.5-5.1); Sodium 141 mmol/L (135-145); eGFR > 60.00
[2024-06-23 10:15] LABS: Chloride 115 mmol/L (98-107)
--- NOTE | 2024-06-23 13:18 | W.PN.HOSP.TC ---
Today's Communication/Plan
-
Potentially able to discharge when seen by ID if no further antibiotics are required. Urine culture on its own was ordered this morning as one was not reflexed off of the initial urine analysis.
Assessment / Plan
Assessment / Plan
NAD
Scleral Anicteric, wearing corrective lenses
DMM
No JVD
CTABL
RRR, S1/S2
Soft, NT, ND, BS+
Cummins catheter in place
Warm, Dry
AA oriented x 1 person
UTI which is likely a catheter associated UTI in the setting of Alzheimer's dementia
Known history of ESBL Klebsiella as recent as of 01/06
Continue ertapenem for now
Await urine culture unfortunately 1 was not collected.
ID consult for continuation of ertapenem however I am questioning if this is even a true UTI therefore would appreciate their input
JACOB complicated by hyperkalemia in the setting of likely postobstructive uropathy/blocked Cummins
- Cummins catheter was exchanged
- JACOB resolved
- Hyperkalemia resolved on its own
- Monitor renal function
Neurogenic bladder with chronic Cummins
Cummins catheter was exchanged
Constipation
Continue bowel regimen
CAD
S/p CABG, continue DAPT Plavix beta-tammie
Diabetes type 2
Accu-Chek sliding scale goal blood glucose 140-180 carb controlled diet hold metformin patient
GERD
Continue PPI
Potential discharge when seen by ID in the next 24 hours
Anticipated Discharge: Within 24 hours
Subjective/Interval History
-
Date of Service: June 23, 2024
Seen and examined. No new complaints. No acute overnight events.
Objective Data
-
Labs:
Laboratory Results
06/23/24
09:15
WBC 6.4
Hgb 9.0 L
Hct 27.0 L
Plt Count 207
Sodium 141
Potassium 4.4
Chloride 115 H
Carbon Dioxide 18 L
BUN 23 H
Creatinine 1.0
Glucose 90
Calcium 8.5
Vital Signs:
Vital Signs
Temp Pulse Resp BP Pulse Ox
98.2 F 72 18 128/63 98
06/23/24 07:38 06/23/24 09:41 06/23/24 07:38 06/23/24 09:41 06/23/24 07:38
I&O
06/22/24 06/23/24 06/24/24
06:59 06:59 06:59
Intake Total 720 / 720 2079
Output Total 350 / 350 1800 / 1800
Balance 370 / 370 280 / 280
--- NOTE | 2024-06-23 14:04 | CON.ID ---
Consultation
-
Date/Time Consultation Requested: 06/23/24 9:11
Date/Time Consultation Performed: 06/23/24 14:07
Requesting Provider: Dr Colmenares
Performing Provider: Dr Jones
Reason for Consultation: UTI, h/o MDRO colonization
Chief Complaint / Past History
Chief Complaint
abdominal pain
History of Present Illness
Mr Fabian is a 78 year old male with h/o ILD/COPD, coloniztion with ESBL Klebsiella, neurogenic bladder with chronic nguyen, dementia who presented here 06/21 for RLQ abdominal pain, nausea. No vomiting or fevers. Had a recent bowel movement.
Since arrival here
Past History
Additional Past Medical History:
Coronary Artery Disease s/p CABG
Essential Hypertension
Hyperlipidemia
Diabetes Mellitus, Type II
CKD Stage 3A
Emphysema / Interstitial Lung Disease
Alzheimer's Dementia
Anxiety / Depression
Neurogenic Bladder with Chronic Nguyen Catheter
GERD
Additional Past Surgical History:
CABG
Allergy History:
No Known Allergies Allergy (Verified 06/21/24 14:45)
Medications Reviewed: Yes
Social History
Tobacco: Former Smoker
Living: [facility]
Employment: Not Employed
Family History
Family History: Not Pertinent
Review of Systems
Review of Systems
unable to obtain due to the condition of the patient
Vital Signs
Temp Pulse Resp BP Pulse Ox
98.2 F 72 18 128/63 98
06/23/24 07:38 06/23/24 09:41 06/23/24 07:38 06/23/24 09:41 06/23/24 07:38
Physical Exam
Physical Exam
Constitutional: No Acute Distress
Cardiovascular: Regular Rate and S1/S2; Negative Murmur or Rub
Pulmonary: Clear and Symmetric; Negative Wheezes, Rales or Rhonchi
Gastrointestinal: Soft, Non Tender, Non Distended and Normal Bowel Sounds
Genito-Urinary: Clear Urine; Negative Suprapubic Tenderness
Skin: Warm and Dry; Negative Rash or Jaundice
Lab / Diagnostic Study Results
06/23/24 09:15
06/23/24 09:15
Abs Immat Gran (auto) 0.1 10^3/uL (0-0.05) H 06/21/24 14:58
Absolute Neuts (auto) 10.5 10^3/uL (1.4-6.5) H 06/21/24 14:58
Absolute Lymphs (auto) 2.2 10^3/uL (1.2-3.4) 06/21/24 14:58
Absolute Monos (auto) 0.7 10^3/uL (0.1-0.6) H 06/21/24 14:58
Absolute Basos (auto) 0.0 10^3/uL (0-0.2) 06/21/24 14:58
Immature Gran % 0.4 % (0-0.5) 06/21/24 14:58
Neutrophils % 76.4 % (42.2-75.2) H 06/21/24 14:58
Lymphocytes % 15.8 % (20.5-51.1) L 06/21/24 14:58
Monocytes % 4.7 % (1.7-9.3) 06/21/24 14:58
Eosinophils % 2.5 % (0-6) 06/21/24 14:58
Basophils % 0.2 % (0-2) 06/21/24 14:58
Lactic Acid 1.6 mmol/L (0.7-2.0) 06/21/24 22:36
Urine WBC 26-30 /HPF (0-5) A 06/21/24 14:58
Ur Squamous Epith Cells 0-2 /LPF (Few) 06/21/24 14:58
Microbiology Results
Micro:
06/23/24 09:33 Urine Culture - Pending
Urine
06/22/24 06:46 MRSA Screen - Final
Nose No Methicillin Resistant Staphylococcus aureus isolated.
06/21/24 19:38 Blood Culture - Preliminary
Blood/Venous No Growth in 24 hours- Final report to follow
06/21/24 19:38 Blood Culture - Preliminary
Blood/Venous No Growth in 24 hours- Final report to follow
Assessment / Plan
Probable Catheter Related UTI
Neurogenic Bladder
BPH
Dementia
- UA suggestive of UTI, urine culture is pending
- blood cultures x2 no growth to date
- recent colonization with ESBL K pneumoniae
- agree with ertapenem
- it would be reasonable to plan a 2 week empiric course of ertapenem, alternative can wait for today culture
[2024-06-23 15:22] VITALS: BP 117/57
--- NOTE | 2024-06-23 15:31 | CM ---
CM reviewed chart, patient will require IV antibiotics at SNF- update to liaison, will send updates in [facility]. CM will continue to follow for all discharge planning needs.
Plan; return to [facility], will require ambulance transport.
[facility]
Report: [phone]
--- NOTE | 2024-06-23 17:37 | VATNOTE ---
repositioned picc; awaiting 2nd CXR to be done.
[2024-06-23] MEDS: TYLENOL 650 MG PO (21:36)
[2024-06-23] MEDS: LIPITOR 20 MG PO (21:36)
[2024-06-23 22:53] LABS: Glucose - Point of Care 133 mg/dl (70-99)
[2024-06-23 22:57] VITALS: BP 158/72
[2024-06-24] MEDS: HEPARIN 5000 UNITS SC ×2 (00:09→08:55)
[2024-06-24] MEDS: NSS 1000 IV ×2 (00:10→11:02)
[2024-06-24 05:16] LABS: Hematocrit 24.7 % (39.0-52.0); Hemoglobin 8.2 g/dL (13.0-18.0); Mean Corp Hgb Conc. 33.2 g/dL (33.0-37.0); Mean Corpuscular Hgb 28.2 pg (27.0-31.0); Mean Corpuscular Volume 84.9 fL (80.0-94.0); Mean Platelet Volume 10.9 fL (7.4-10.4); Platelet Count 197 10^3/uL (130-400); Red Blood Cell Count 2.91 10^6/uL (4.70-6.10); Red Cell Dist. Width 13.5 % (11.5-14.5); White Blood Cell Count 6.5 10^3/uL (4.8-10.8)
[2024-06-24 05:39] LABS: Blood Urea Nitrogen 16 mg/dl (9-20); Calcium 8.4 mg/dl (8.4-10.2); Carbon Dioxide 19 mmol/L (22-30); Chloride 113 mmol/L (98-107); Estimated Creatinine Clearance 54 ml/min; Glucose 81 mg/dl (70-99); Potassium 4.1 mmol/L (3.5-5.1); Sodium 140 mmol/L (135-145); eGFR > 60.00
[2024-06-24 07:12] VITALS: BP 122/54
[2024-06-24 08:42] LABS: Glucose - Point of Care 88 mg/dl (70-99)
[2024-06-24] MEDS: PLAVIX 75 MG PO (08:51)
[2024-06-24] MEDS: MIRALAX 17 GRAMS PO (08:51)
[2024-06-24] MEDS: ASPIR LOW (ENTERIC COATED) 81 MG PO (08:51)
[2024-06-24] MEDS: PROTONIX 40 MG PO (08:52)
[2024-06-24] MEDS: TOPROL XL 25 MG PO (08:52)
[2024-06-24] MEDS: FEOSOL 325 MG PO (08:53)
[2024-06-24] MEDS: ROXICODONE 5 MG PO (08:53)
[2024-06-24] MEDS: COLACE 100 MG PO (08:54)
[2024-06-24] MEDS: TRIAMCINOLONE ACETONIDE 0.1% CREAM 1 APPLIC TOPICAL (09:47)
--- NOTE | 2024-06-24 11:14 | CM ---
Addendum entered by Jerri Covington 06/24/24 12:30:
Patient scheduled for 3:15 p.m. ambulance transport, update to patients sister in [facility].
Original Note:
CM reviewed chart, patient for discharge today, return to [facility]. Updated clinicals/PICC info sent in [facility]. Call to patients sister in /PO[facility], to discuss transport, requesting call from nurse if possible, update to
patients nurse. IMM verbally reviewed with Eli, placed in chart. Patient will require ambulance transport. CM will continue to follow for all discharge planning needs.
Plan; return to [facility], will require ambulance transport, IV antibiotics.
[facility]
Report: [phone]
[2024-06-24 11:54] LABS: Glucose - Point of Care 100 mg/dl (70-99)
--- NOTE | 2024-06-24 12:00 | PN.CDI ---
CDI
- -
CDI:
Physician Documentation Request
Admit Date: 06/21/24 20:00
Dear Doctor Darrian,
Patient admitted for management of UTI likely catheter associated.
H?H results:
Laboratory Tests
06/21/24 06/22/24 06/23/24
14:58 10:21 09:15
Hgb 13.2 9.5 L D 9.0 L
Hct 40.2 29.5 L 27.0 L
06/24/24
04:46
Hgb 8.2 L
Hct 24.7 L
Could you please provide a diagnosis that supports the above lab abnormalities and additional evaluation/ monitoring:
Anemia- please specify
Abnormal lab value clinically insignificant
Other
Use of terms such as suspected, likely, concern for, or probable (associated with a specific diagnosis that is being evaluated, monitored, or treated as if it exists) are acceptable and can be coded in the inpatient setting, when documented at the
time of discharge.
Thank you,
Sandy Parham RN, BSN
CDI Specialist
tiger text
Please use your independent medical judgment in providing your response.
--- NOTE | 2024-06-24 12:04 | PN.CDI ---
CDI
- -
CDI:
Physician Documentation Request
Admit Date: 06/21/24 20:00
Dear Doctor Darrian,
Patient admitted for management of UTI likely catheter associated, JACOB and hyperkalemia.
06/21 lactic acid 3.1
WBC 13.7
Presenting heart rate 90-105, respiratory rate 13-26
Please clarify which of the following most accurately describes the status of the patient's infection:
Sepsis
- Systemic manifestations of infection, with 2 or more SIRS criteria which include:
- Fever >100.4 degrees F or hypothermia < 96.8 degrees F
- Leukocytosis - WBC > 12,000 or leukopenia - WBC < 4,000 or > 10% bands
- Tachycardia > 90 beats per minute
- Tachypnea - RR > 20 breaths per minute or PaCO2 , 32mmHg
Source: Merck Manual 2013
Severe Sepsis
- Sepsis with associated acute organ dysfunction, such as renal or respiratory failure
Localized Infection Only, Without Systemic Illness
Other
Use of terms such as suspected, likely, concern for, or probable (associated with a specific diagnosis that is being evaluated, monitored, or treated as if it exists) are acceptable and can be coded in the inpatient setting, when documented at the
time of discharge.
Thank you,
Sandy Parham RN, BSN
CDI Specialist
tiger text
Please use your independent medical judgment in providing your response.
--- NOTE | 2024-06-24 14:57 | W.PN.ID1 ---
Date of Service
Date of Service: June 24, 2024
Today's Communication
- PICC can be removed
- no need for further ertapenem
Assessment / Plan
Ruled out Catheter Related UTI
Neurogenic Bladder
BPH
Dementia
- Urine culture with 100K yeast
- nguyen has been removed and replaced which is mainstay of care
- PICC can be removed
- no need for further ertapenem
- stable for dc from ID perspective
Patient was under assessment for suspected UTI which is now ruled out with review of cultures; patient reviewed with Dr Jose Colmenares.
Chief Complaint
-: UTI
Subjective / Review of Systems
afebrile
bp stbale
tolerating current therapy
some malaise, no other compalints
no abdominal pain or suprapubic pain
Vital Signs / Physical Exam
Vital Signs
Vital Signs
Temp Pulse Resp BP Pulse Ox
98.2 F 69 18 122/54 98
06/24/24 07:12 06/24/24 07:12 06/24/24 07:12 06/24/24 07:12 06/24/24 07:12
Physical Exam
Constitutional: No Acute Distress
Cardiovascular: Regular Rate and S1/S2; Negative Murmur or Rub
Pulmonary: Clear and Symmetric; Negative Wheezes or Rales
Gastrointestinal: Soft, Non Tender, Non Distended and Normal Bowel Sounds
Skin: Warm and Dry; Negative Rash or Jaundice
Objective Data
Lab Data
Lab Results
06/24/24 04:46
06/24/24 04:46
Estimated Creat Clear 54 ml/min 06/24/24 04:46
Lactic Acid 1.6 mmol/L (0.7-2.0) 06/21/24 22:36
Total Bilirubin 0.8 mg/dl (0.2-1.3) 06/21/24 14:58
AST 31 U/L (17-59) 06/21/24 14:58
ALT 26 U/L (0-50) 06/21/24 14:58
Alkaline Phosphatase 159 U/L (38-126) H 06/21/24 14:58
Most recent labs reviewed.
Micro Results:
06/23/24 09:33 Urine Culture - Preliminary
Urine Yeast
06/21/24 19:38 Blood Culture - Preliminary
Blood/Venous No Growth in 48 hours- Final report to follow
06/21/24 19:38 Blood Culture - Preliminary
Blood/Venous No Growth in 48 hours- Final report to follow
06/22/24 06:46 MRSA Screen - Final
Nose No Methicillin Resistant Staphylococcus aureus isolated.
Care Review
Plan reviewed with: Physician (Dr Colmenares)
--- NOTE | 2024-06-24 15:03 | W.PN.HOSP.TC ---
Addendum entered and electronically signed by Marek Colmenares MD 06/26/24 21:54:
Stevenson not related to UTI
Anemia without evidence of active bleeding
-will need outpt follow up and age appropriate cancer screening
Original Note:
Today's Communication/Plan
-
DC SNF today
More than 30 minutes spent in discharge including
Final examination of the patient
Summarizing hospital stay
Instructions for continuing care to all relevant caregivers
Preparation of discharge records, prescriptions, and referral forms
Total time spent (in minutes): 33min
Assessment / Plan
Assessment / Plan
NAD
Scleral Anicteric, wearing corrective lenses
DMM
No JVD
CTABL
RRR, S1/S2
Soft, NT, ND, BS+
Cummins catheter in place
Warm, Dry
AA oriented x 1 person
Urine analysis likely related to contamination/colonization
No antibiotics per ID
STEVENSON complicated by hyperkalemia in the setting of likely postobstructive uropathy/blocked Cummins
- Cummins catheter was exchanged
- STEVENSON resolved
- Hyperkalemia resolved on its own
- Monitor renal function
Neurogenic bladder with chronic Cummins
Cummins catheter was exchanged
Constipation
Continue bowel regimen
CAD
S/p CABG, continue DAPT Plavix beta-tammie
Diabetes type 2
Accu-Chek sliding scale goal blood glucose 140-180 carb controlled diet hold metformin patient
GERD
Continue PPI
Anticipated Discharge: Today
Subjective/Interval History
-
Date of Service: June 24, 2024
Seen and examined. No new complaints. No acute overnight events
Objective Data
-
Labs:
Laboratory Results
06/24/24
04:46
WBC 6.5
Hgb 8.2 L
Hct 24.7 L
Plt Count 197
Sodium 140
Potassium 4.1
Chloride 113 H
Carbon Dioxide 19 L
BUN 16
Creatinine 0.9
Glucose 81
Calcium 8.4
Vital Signs:
Vital Signs
Temp Pulse Resp BP Pulse Ox
98.2 F 69 18 122/54 98
06/24/24 07:12 06/24/24 07:12 06/24/24 07:12 06/24/24 07:12 06/24/24 07:12
I&O
06/23/24 06/24/24 06/25/24
06:59 06:59 06:59
Intake Total 0 / 2080 200 / 200 1240 / 1240
Output Total 1800 / 1800 450 / 450 1250 / 1250
Balance 280 / 280 -250 / -250 -10 / -10
[2024-06-24 15:39] VITALS: BP 120/59
== END 2024-06-24 16:50 | DRG 683 ==
LOC: 4 WEST ACU 20:00
PROVIDERS: Nurse Practitioner Family; Physician Assistant; Radiology Diagnostic Radiology; ADMITTING PHYSICIAN Hospitalist; ATTENDING PHYSICIAN Hospitalist; EMERGENCY PHYSICIAN Student in an Organized Health Care Education/Training Program; OTHER PHYSICIAN Student in an Organized Health Care Education/Training Program
PROC: 02HV33Z Insertion of Infusion Device into Superior Vena Cava, Percutaneous Approach (ICD-10-PCS; 2024-06-23)
DX: N17.9 Acute kidney failure, unspecified (principal); F02.83 Dementia in other diseases classified elsewhere, unspecified severity, with mood disturbance; F02.84 Dementia in other diseases classified elsewhere, unspecified severity, with anxiety; J84.9 Interstitial pulmonary disease, unspecified; Z66 Do not resuscitate; E11.22 Type 2 diabetes mellitus with diabetic chronic kidney disease; E78.00 Pure hypercholesterolemia, unspecified; G30.9 Alzheimer's disease, unspecified; F32.A Depression, unspecified; I12.9 Hypertensive chronic kidney disease with stage 1 through stage 4 chronic kidney disease, or unspecified chronic kidney disease; I25.10 Atherosclerotic heart disease of native coronary artery without angina pectoris; N18.31 Chronic kidney disease, stage 3a; N31.9 Neuromuscular dysfunction of bladder, unspecified; K21.9 Gastro-esophageal reflux disease without esophagitis; K59.00 Constipation, unspecified; J43.9 Emphysema, unspecified; D64.9 Anemia, unspecified; Z95.1 Presence of aortocoronary bypass graft; Z79.84 Long term (current) use of oral hypoglycemic drugs; Z79.82 Long term (current) use of aspirin; Z79.899 Other long term (current) drug therapy; Z87.891 Personal history of nicotine dependence
CPT/HCPCS: 71045; 71275; 74177; 80048; 80053; 81003; 81015; 82962; 83605; 84484; 85025; 85027; 87040; 87070; 87077; 87086; 87186; 93005; 96361; 96374; 96375; 97163; 99285; J1335; Q9967

== ENCOUNTER 2024-10-23 23:25 | Inpatient (IN) | payer MEDICARE, OTHER, SELFPAY ==
[2024-10-23 21:20] VITALS: BMI 26.2
--- NOTE | 2024-10-23 21:31 | ED.GENMED ---
History of Present Illness
General
Chief Complaint: Breathing Problem
Source: patient and ambulance crew
Exam Limitations: none
Time Seen by Provider: 10/23/24 21:20
Nursing documentation reviewed up to this point in time: agreed with
History of Present Illness
History of Present Illness:
Note:
CHIEF COMPLAINT(S)
Difficulty breathing.
HISTORY OF PRESENT ILLNESS
The patient is a 78-year-old male who began experiencing difficulty breathing today after eating around noon. The condition has worsened since its onset. The patient was found cool to touch by emergency services, with a blood pressure of 80 mmHg,
prompting their intervention. The patient experienced episodes of ventricular tachycardia en route to the facility and an 18-gauge intravenous line was inserted. Two liters of intravenous fluids were administered upon arrival. The patient mentioned
having experienced vomiting after lunch, raising the possibility of aspiration. The patient reported that supplemental oxygen provided some relief.
PAST MEDICAL AND SURIGICAL HISTORY
History of pulmonary embolism.
REVIEW OF SYSTEMS
- Respiratory: Difficulty breathing, potential aspiration of vomit.
- Cardiovascular: Episode of ventricular tachycardia experienced en route to the facility.
PHYSICAL EXAM
General: Alert, in moderate distress due to difficulty breathing.
Skin: Cool to touch initially, warm, dry upon examination.
Cardiovascular: Normal peripheral perfusion, no edema noted.
Respiratory: Respirations are labored, oxygen providing some relief.
PROBLEM LIST
Acute:
1. Difficulty breathing
2. Potential aspiration
3. Hypotension (blood pressure of 80 mmHg)
4. Ventricular tachycardia
Chronic:
1. History of pulmonary embolism
PLAN
1. Continue oxygen therapy to alleviate respiratory distress.
2. Monitor blood pressure and cardiac rhythm closely given the episodes of ventricular tachycardia.
3. Consider imaging and further evaluation to assess for possible aspiration and its impact on lung function.
4. Continued intravenous fluid administration to address hypotension.
DIFFERENTIAL DIAGNOSIS
The Differential Diagnosis includes, in no particular order and is not limited to:
1. Aspiration pneumonia
2. Acute respiratory distress syndrome (ARDS)
3. Pulmonary embolism
4. Myocardial infarction
5. Congestive heart failure exacerbation
6. Chronic obstructive pulmonary disease (COPD) exacerbation
7. Pneumothorax
8. Bronchospasm
9. Stroke
10. Metabolic acidosis
CARE-UPDATE
10/23/24 - 22:32
Patient continues to experience runs of ventricular tachycardia and intermittent chest pain. Aspiration pneumonia is present. IV Heparin and IV vancomycin have been ordered. Zosyn also ordered. Admission to hospitalist was discussed with cardiology
senior safety management consultant, Dr. Ribeiro, who concurs with IV Heparin and additionally recommends initiating an IV beta tammie. Proceed with hospice admission as planned.
EKG
My independent EKG interpretation is:
- Time of EKG not specified.
- Rhythm: Sinus tachycardia.
- Heart rate: 128 beats per minute.
- Notable intervals: Not specified.
- Graham: Not specified.
- Abnormalities observed: Left bundle branch block.
- No signs of arrhythmia.
Disposition:
SUMMARY OF ENCOUNTER
The patient, a 78-year-old male, was seen in the emergency department for difficulty breathing that began after eating at noon and progressively worsened. Emergency services found the patient had hypotension with a blood pressure of 80 mmHg and
noted episodes of ventricular tachycardia en route to the facility. Oxygen therapy provided some relief. The patient had vomiting after lunch, suggesting a possibility of aspiration. Upon arrival, two liters of intravenous fluids were administered
to address hypotension. Aspiration pneumonia was confirmed, and the patient continues to have runs of ventricular tachycardia and intermittent chest pain.
DISPOSITION
Admit to hospitalists.
ASSESSMENT
The patient is experiencing respiratory distress potentially exacerbated by aspiration pneumonia and a history of ventricular tachycardia.
EMERGENCY TREATMENTS ADMINISTERED
Intravenous fluids were administered. Oxygen therapy continued. IV heparin and IV macamycin were ordered, along with Zosyn.
MANAGEMENT OF THE PATIENTS CARE WAS DISCUSSED WITH
Admission to hospice was discussed with [facility] consultant, Dr. Ribeiro, who recommends initiating an IV beta tammie.
PLAN
Continue oxygen therapy for respiratory support. Monitor blood pressure and cardiac rhythm closely, focusing on the episodes of ventricular tachycardia. Administer IV heparin and IV vancomycin, and start an IV beta tammie following the cardiology
senior safety management consultant�s advice. Proceed with hospitalist admission as planned.
INDEPENDENT REVIEW OF LABS AND INTERPRETATION OF TESTS
My independent EKG interpretation is sinus tachycardia with a heart rate of 128 beats per minute and a left bundle branch block.
MEDICATION RECONCILIATION
1. Intravenous fluids.
2. IV heparin.
3. IV vancomycin.
4. Zosyn.
MEDICAL DECISION MAKING
-Complexity of Data Reviewed: Chronic conditions affecting care include the history of pulmonary embolism. Differential diagnosis considers aspiration pneumonia, acute respiratory distress syndrome, pulmonary embolism, myocardial infarction,
congestive heart failure exacerbation, chronic obstructive pulmonary disease exacerbation, pneumothorax, bronchospasm, stroke, and metabolic acidosis.
-Data:
Category 1: My independent interpretation of the EKG shows sinus tachycardia and left bundle branch block.
Category 3: Discussion of management with [facility] consultant Dr. Ribeiro regarding IV beta tammie initiation and hospitalist admission.
DIAGNOSIS
- Aspiration pneumonia (J69.0)
- Non-ST elevation myocardial infarction (NSTEMI) (I21.4)
- Chronic obstructive pulmonary disease (J44.9)
- Chronic kidney disease unspecified (N18.9)
- Respiratory distress (R06.00)
Past History
Past History
ED Past Medical History: CAD, GERD, HTN, Hypercholesterolemia, NIDDM, [place], Psychiatric (Anxiety/depression) and Other (Cognitive impairment)
ED Past Surgical History: Cardiac (CABG, Stents X 3)
Social History
Tobacco: Non-smoker
Alcohol: None
Drug: None
Personal:
Living: prison
Phy Exam
Physical Exam
Physical Exam:
.
Scores
Heart Failure Risk
Heart Failure Risk Score: Yes
History of Stroke or TIA: No
History of intubation for respiratory distress: No
Heart rate on ED arrival >/= 110: Yes
SaO2 <90% on arrival on room air: Yes
HR >/=110 during 3min walk test (or too ill to perform test): Yes
ECG has acute ischemic changes: No
Urea >/=12mmol/L (BUN 33.6mg/dL): No
Serum CO2>/=35mmol/L: No
Troponin I or T elevated to [place] Level (0.4mg/dL): Yes
NT-proBNP >/=5,000ng/L (5,000pg/ml): Yes
HF Risk Score: 6
Admission Status: VERY HIGH RISK 55.3% Consider admission to hospital
Heart Score for Chest Pain Patients
STEMI patient?: No
History: Slightly or Non-Suspicious
ECG: Nonspecific Repolarization
Age: >/= 65 years
Risk Factors: >/= 3 Risk Factors or History of CAD
Troponin: >/= 3 x Normal Limit
Heart Score for Chest Pain Patients: 7
Heart Score Risk: 72.7 % MACE over next 6 weeks
Course
Orders/Labs/Results
Orders:
Orders
10/23/24 21:19
Electrocardiogram (*1) Urgent
Reason for Study: Shortness of Breath
10/23/24 21:20
EKG- Treatment ONCE
10/23/24 21:21
Portable Chest Xray [CR Chest Portable - 1 View] Urgent
Comment:
Reason For Exam: SOB
Reason Study Needs to be Portable: Unable to Transport
10/23/24 21:24
Complete Blood Count/With Diff Urgent
Comprehensive Metabolic Panel Urgent
NT-proBNP Urgent
Comment: ADD ON
Troponin I Urgent
10/23/24 21:28
Cardiac Monitoring- Treatment ONCE
IV Insert/Care/Rem.- Treatment PRN
O2 Therapy [RESP] Stat
Nasal Cannula Liter Flow: 2 LPM
Titrate/Wean O2 to maintain O2 sat greater than (%): 92
10/23/24 21:30
Electrocardiogram (*1) Stat
Reason for Study: Other
Other Reason for Exam: pneumonia
EKG- Treatment ONCE
10/23/24 21:33
Lactic Acid Q4H
Comment: CANCEL 2nd LACTIC ACID IF 1st LACTIC ACID IS LESS THAN 2
Blood Culture Q30M
SANDY Source: Blood/Venous
Specimen Description:
10/23/24 21:35
Blood Culture Q30M
SANDY Source: Blood/Venous
Specimen Description:
10/23/24 21:39
UA Reflex to Culture [Urinalysis Reflex To Culture] Urgent
Date Specimen was Collected: 10/23/24
Time Specimen was Collected: 21:38
Urine Microscopic Reflex Cult Urgent
Urine Culture Urgent
SANDY Source: U
Specimen Description:
Date Specimen was Collected: 10/23/24
Time Specimen was Collected: 21:38
10/23/24 22:06
Add On- LAB Urgent
Tests Added?: bnp
10/23/24 22:21
EKG- Treatment ONCE
10/23/24 22:22
Electrocardiogram (*1) Urgent
Piperacillin/Tazo 2.25 Gram [Zosyn] 2.25 grams in 50 ml IV NOW
10/23/24 22:26
Heparin 4,000 units IV NOW STA
10/23/24 22:27
PTT Urgent
Comment: Obtain baseline before beginning heparin infusion if not already collected
Nursing to Place Non Medication Order As Directed
Physician Order: PTT 6 hours after initial start of Heparin infusion
10/23/24 22:30
Heparin 84775 Units/250 ml 25,000 units in 250 ml IV PER PROTOCOL
Weight to be used for heparin protocol in kilograms (kg):: 71.3
Protocol:: Cardiac Tx/Acute Coronary
PTT Goal Range to be used:: PTT 73 to 111 seconds
Order type:: Initial
INITIAL Infusion Dose (UNITS/KG/hr) & then follow protocol:: 12 units/kg/hr
Infusion Dose in UNITS/hr & then follow protocol (UNITS/hr):: 850
INFUSION RATE in mL/hr & then follow protocol (mL/hr):: 8.5
PTT less than or equal to 64 seconds:: Increase rate by 200 units/hr (+ 2 mL/hr)
PTT 64.1 to 72.9 seconds:: Increase rate by 100 units/hr (+ 1 mL/hr)
PTT 73 to 111 seconds:: Target Range. No change in rate.
PTT 111.1 to 130.9 seconds:: Decrease rate by 100 units/hr (- 1 mL/hr)
PTT 131 to 199.9 seconds:: HOLD for 1 hr. Then decrease rate by 200 units/hr (- 2 mL/hr)
PTT greater than or equal to 200 seconds:: HOLD for 2 hrs & Notify Provider. Then decrease by 200 units/hr (-
2 mL/hr)
Lab follow-up:: Each change, PTT q6h until 2 consecutive are therapeutic. Then PTT
daily.
10/23/24 22:35
Metoprolol [Lopressor] 5 mg IV NOW STA
10/23/24 22:36
Piperacillin/Tazo 3.375 Gram [Zosyn] 3.375 gram in 50 ml IV NOW
10/23/24 22:37
Vancomycin [Vancocin] 2,000 mg 0.9% Sodium Chloride 500 ml [Nss] 500 ml IV NOW
10/23/24 22:54
Furosemide [Lasix] 40 mg IV NOW STA
10/23/24 22:57
Admit/Transfer Patient As Directed
Co-Sign Provider:
Level of Care: Inpatient admission
Assign to:: IMU- Intermediate Care
Physician / Group: meron
Diagnosis: NSTEMI
Reason for Hospitalization: NSTEMI
Expected length of stay greater than two midnights?: Yes
ELOS- Estimated Length of Stay in days: 2
I certify the patient meets the requirements for IP care: Yes
10/23/24 22:58
Code Status As Directed
Resuscitation Status: Full Code
PRN Pain Medication Management As Directed
May give lesser potent ordered pain med per pt: Yes
preference::
Protocol:: Medication orders for pain may be administered in a
manner that supports deferring to patient preference
when the pt is:
- Requesting an ordered lesser potent pain medication.
Least to most potent pain medications are defined
as: acetaminophen < NSAID < tramadol < opioids
(morphine, oxycodone, hydromorphone).
- Requesting a lesser dose of the same medication IF
ORDERED.
- Requesting a less intrusive route of administration
if both routes are prescribed by the provider (PO <
IV).
10/24/24 01:30
Lactic Acid Q4H
Comment: CANCEL 2nd LACTIC ACID IF 1st LACTIC ACID IS LESS THAN 2
Abnormal Lab Results
10/23/24 10/23/24 10/23/24
21:24 21:33 21:39
WBC 15.2 H 10^3/uL
(4.8-10.8)
RBC 4.44 L 10^6/uL
(4.70-6.10)
Hgb 12.2 L g/dL
(13.0-18.0)
Hct 37.2 L %
(39.0-52.0)
MCHC 32.8 L g/dL
(33.0-37.0)
MPV 10.5 H fL
(7.4-10.4)
Abs Immat Gran (auto) 0.1 H 10^3/uL
(0-0.05)
Absolute Neuts (auto) 12.7 H 10^3/uL
(1.4-6.5)
Absolute Monos (auto) 0.8 H 10^3/uL
(0.1-0.6)
Neutrophils % 83.4 H %
(42.2-75.2)
Lymphocytes % 10.5 L %
(20.5-51.1)
Chloride 108 H mmol/L
(98-107)
Carbon Dioxide 21 L mmol/L
(22-30)
BUN 27 H mg/dl
(9-20)
Glucose 368 H mg/dl
(70-99)
Lactic Acid 3.3 H mmol/L
(0.7-2.0)
Troponin I 4.870 H* ng/ml
Urine Ketones 2+ A
(Negative)
Ur Occult Blood Reflex 3+ A
(Negative)
Leukocyte Esterase Rfl 3+ A
(Negative)
Urine RBC 70-80 A /HPF
(0-2)
Urine WBC (Reflex) 60-70 A /HPF
(0-5)
Urine Bacteria (Reflex) Moderate A
(Negative)
Urine Glucose 4+ A
(Negative)
Urine Albumin (Reflex) 3+ A
(Neg - Trace)
10/23/24 21:24
10/23/24 21:24
Vital Signs
Initial and Last Documented VS:
Initial Vital Signs
Pulse Ox
94
10/23/24 21:20
Last Documented Vital Signs
Pulse Resp BP Pulse Ox
137 34 151/93 95
10/23/24 22:46 10/23/24 21:47 10/23/24 22:46 10/23/24 21:47
*Pulse Oximetry
Patient hypoxic: yes
*Critical Care Note
Total Time (30-74mins, 75-104mins- exclusive of procedures): 45
comment:
Critical care statement: A total of 45 minutes of critical care time was provided for this patient. This includes management of unstable vital signs, evaluation of the patient at bedside, reviewing the patient's pertinent medical records, discussion
with consultants, review of old EKGs and review of pertinent medical records. This time with separate from time utilized to perform the aforementioned documented procedures
ED Attending Note
-
Portions of this chart may have been created with voice recognition software.� Occasional wrong word or��sound alike� substitutions may have occurred due to the inherent limitations of voice recognition software.
Discharge Plan
Departure
Patient Disposition: Admit
Date of Disposition: 10/23/24
Time of Disposition: 22:39
Admit to: ICU
Presentation/result/management discussed w/ accepting MD/DO: Hospitalist
Patient with high blood pressure during this ER visit?: Yes
Condition: Serious
Discharge Problem:
Acute non-ST elevation myocardial infarction (NSTEMI), Aspiration pneumonia, Interstitial lung disease, COPD (chronic obstructive pulmonary disease), Acute respiratory insufficiency, Chronic indwelling Cummins catheter, Acute UTI
Prescriptions:
No Action
acetaminophen 325 mg Tablet
650 mg PO Q4HPRN MDD 3000mg PRN (Reason: mild pain/temp>100f)
aspirin 81 mg Tablet,Delayed Release (Dr/Ec)
81 mg PO DAILY
magnesium hydroxide [Milk of Magnesia] 400 mg/5 mL Suspension
30 ml PO DAILYPRN PRN (Reason: if no bm x 3 days)
bisacodyl [Dulcolax (bisacodyl)] 10 mg Suppository
[address] DAILYPRN PRN (Reason: if mom ineffective)
pantoprazole 40 mg Tablet,Delayed Release (Dr/Ec)
40 mg PO DAILY
Fleet Enema 19-7 gram/118 mL Enema
[address] DAILYPRN PRN (Reason: if dulcolax ineffective after 24 hours)
metoprolol succinate 25 mg Tablet Extended Release 24 Hr
25 mg PO DAILY
atorvastatin 20 mg tablet
20 mg PO HS
metformin 500 mg tablet
500 mg PO BID
polyethylene glycol 3350 [Miralax] 17 gram Powder In Packet
17 g PO MOWEFR
triamcinolone acetonide 0.1 % cream
1 applic TOPICAL BID
Rx Instructions:
apply to b/l ears
ferrous sulfate 325 mg (65 mg iron) Tablet
325 mg PO DAILY
docusate sodium 100 mg Capsule
100 mg PO MoWeFr@0800,1900
emollient Cream
1 applic TOPICAL TID Qty: 0
Rx Instructions:
apply to b/l ear
enoxaparin 40 mg/0.4 mL Syringe
40 mg SC DAILY Qty: 10 0RF
Patient Comments:
06/21/24: Start date 06/07/24. End date 07/01/24.
oxycodone 5 mg Tablet
5 mg PO Q6HPRN PRN (Reason: severe pain)
Patient Comments:
06/21/24: Take for 14 days. Start date 06/09/24. End date 06/22/24.
nitrofurantoin monohyd/m-cryst [Macrobid] 100 mg Capsule
100 mg PO BID
Patient Comments:
06/21/24: take for 7 days. Start date 06/19/24. End date 06/26/24.
loperamide 2 mg Tablet
2 mg PO Q8HPRN PRN (Reason: loose stool)
clopidogrel [Plavix] 75 mg Tablet
75 mg PO DAILY
oxycodone 5 mg tablet
5 mg PO DAILY
Referrals:
Ash Ying I., DO [Family Provider, Internal Medicine]
Interventions
Interventions:
*Risk Screen - Suicide Last Done: 10/23/24 21:20
*General Assessment Last Done: 10/23/24 21:20
*Neglect/Abuse Screening Last Done: 10/23/24 21:20
*ED- Fall Risk Assessment Last Done: 10/23/24 21:20
*ED COVID-19 Vaccine History Last Done: 10/23/24 21:20
ED- Cardiac Assessment Last Done: 10/23/24 21:42
ED- Pulmonary Assessment Last Done: 10/23/24 21:42
Discharge Date and Time
Print Language: ROMANIAN
[2024-10-23 21:32] LABS: Hematocrit 37.2 % (39.0-52.0); Hemoglobin 12.2 g/dL (13.0-18.0); Mean Corp Hgb Conc. 32.8 g/dL (33.0-37.0); Mean Corpuscular Volume 83.8 fL (80.0-94.0); Nucleated Red Blood Cells % 0 % (-); Platelet Count 271 10^3/uL (130-400); Red Cell Dist. Width 14.0 % (11.5-14.5)
[2024-10-23 21:46] VITALS: BP 145/93
[2024-10-23 21:54] LABS: ALT (SGPT) 16 U/L (0-50); AST (SGOT) 50 U/L (17-59); Albumin 4.1 g/dl (3.5-5.0); Alkaline Phosphatase 95 U/L (38-126); Blood Urea Nitrogen 27 mg/dl (9-20); Calcium 9.2 mg/dl (8.4-10.2); Carbon Dioxide 21 mmol/L (22-30); Chloride 108 mmol/L (98-107); Estimated Creatinine Clearance 41 ml/min; Glucose 368 mg/dl (70-99); Potassium 4.4 mmol/L (3.5-5.1); Sodium 139 mmol/L (135-145); Total Protein 7.2 g/dl (6.3-8.2); eGFR 56.23
[2024-10-23 21:55] LABS: Urine Character Cloudy (Clear)
[2024-10-23 22:00] VITALS: BP 137/82
[2024-10-23 22:08] LABS: Troponin I 4.870 ng/ml
[2024-10-23 22:20] LABS: Urine Red Blood Cell 70-80 /HPF (0-2); Urine Urothelial Cell 0-2 /LPF (FEW)
[2024-10-23 22:21] LABS: Urine White Cell 60-70 /HPF (0-5)
[2024-10-23 22:28] VITALS: BP 151/93
[2024-10-23] MEDS: LOPRESSOR 5 MG IV (22:46)
[2024-10-23 23:00] VITALS: BP 128/89
--- NOTE | 2024-10-23 23:07 | HPS.HSE ---
Family Physician
-
Family Physician: Ash Ying
Chief Complaint
-
chest pain
History of Present Illness
78-year-old male past medical history of CAD status post CABG, hypertension, hyperlipidemia, diabetes, CKD 3A, emphysema/interstitial lung disease, Alzheimer's dementia, anxiety/depression, neurogenic bladder chronic Cummins catheter, GERD, presenting
with chest pain starting yesterday. Shortness of breath and cough since yesterday. Today afternoon he developed vomiting. Denies abdominal pain or diarrhea. He denies fevers or chills. He denies any weight gain or lower extremity edema.
He smokes 3 cigarettes a day. Denies alcohol.
Medical History
Past Medical History
Past Medical History: Reports Other (CAD status post CABG, hypertension, hyperlipidemia, diabetes, CKD 3A, emphysema/interstitial lung disease, Alzheimer's dementia, anxiety/depression, neurogenic bladder chronic Cummins catheter, GERD)
Past Surgical History: Reports Other (Cardiac (CABG, Stents X 3))
Social History
Tobacco: Smoker
Alcohol: None
Drug: None
Family History
Family History: Not pertinent
Allergies / Home Medications
Allergies reflects when Allergies were last updated in [facility].
Home Medications with original date entered in [facility]
Allergy/Medication List:
Allergies
Allergy/AdvReac Type Severity Reaction Status Date / Time
No Known Allergies Allergy Verified 06/21/24 14:45
Home Medications
acetaminophen 325 mg tablet 650 mg PO Q4HPRN PRN mild pain/temp>100f 10/25/21
aspirin 81 mg tablet,delayed release 81 mg PO DAILY Blood clot prevention/tx 10/25/21
bisacodyl 10 mg rectal suppository (Dulcolax (bisacodyl)) 10 mg OR DAILYPRN PRN if mom ineffective 10/25/21
magnesium hydroxide 400 mg/5 mL oral suspension (Milk of Magnesia) 30 ml PO DAILYPRN PRN if no bm x 3 days 10/25/21
metoprolol succinate 25 mg tablet,extended release 24 hr 25 mg PO DAILY Blood pressure 10/25/21
pantoprazole 40 mg tablet,delayed release 40 mg PO DAILY GERD 10/25/21
sodium phosphates 19 gram-7 gram/118 mL enema (Fleet Enema) 118 ml OR DAILYPRN PRN if dulcolax ineffective after 24 hours 10/25/21
atorvastatin 20 mg tablet 20 mg PO HS High cholesterol 03/11/22
docusate sodium 100 mg capsule 100 mg PO MoWeFr@0800,1900 Constipation 03/24/23
emollient 1 applic topical TID b/l ear ##0 03/24/23
ferrous sulfate 325 mg (65 mg iron) tablet 325 mg PO DAILY Supplement 03/24/23
metformin 500 mg tablet 500 mg PO BID diabetes 03/24/23
polyethylene glycol 3350 17 gram oral powder packet (Miralax) 17 g PO MOWEFR constipation 03/24/23
triamcinolone acetonide 0.1 % topical cream 1 applic topical BID b/l ears 03/24/23
enoxaparin 40 mg/0.4 mL subcutaneous syringe 40 mg (0.4 mL) SC DAILY #10 mL 06/06/24
clopidogrel 75 mg tablet (Plavix) 75 mg PO DAILY 06/21/24
loperamide 2 mg tablet 2 mg PO Q8HPRN PRN loose stool 06/21/24
nitrofurantoin monohydrate/macrocrystals 100 mg capsule (Macrobid) 100 mg PO BID 06/21/24
oxycodone 5 mg tablet 5 mg PO DAILY 06/21/24
oxycodone 5 mg tablet 5 mg PO Q6HPRN PRN severe pain 06/21/24
Review of Systems
-
History Source: Patient
A 12 point ROS was completed and negative except as noted: Yes
Constitutional: Reports No Symptoms
EENT: Reports No Symptoms
Respiratory: Reports No Symptoms
Cardiac: Reports No Symptoms
Abdomen/GI: Reports No Symptoms
: Reports No Symptoms
Musculoskeletal: Reports No Symptoms
Skin: Reports No Symptoms
Neurological: Reports No Symptoms
Endocrine: Reports No Symptoms
Hematologic/Lymphatic: Reports No Symptoms
Psych: Reports No Symptoms
Physical Exam
Vital Signs
Vital Signs
Pulse Resp BP Pulse Ox
137 34 151/93 95
10/23/24 22:46 10/23/24 21:47 10/23/24 22:46 10/23/24 21:47
Physical Exam
General: Well Developed, Well Nourished and No Apparent Distress
HEENT: NormoCephalic, Moist mucous membranes and Atraumatic
Respiratory: Clear
Cardiac: S1/S2 and Regular Rhythm; No Murmur or Rub
GI: Soft, Non Tender, Non Distended and Normal Bowel Sounds; No Organomegaly
Rectal: Deferred by Provider
Musculoskeletal: No Clubbing, No Cyanosis and No Edema
Skin: No Rash
Neuro: Nonfocal/grossly intact
Laboratory Results
-
10/23/24 21:24
10/23/24 21:24
Laboratory Results
Lactic Acid 3.3 mmol/L (0.7-2.0) H 10/23/24 21:33
Total Bilirubin 0.9 mg/dl (0.2-1.3) 10/23/24 21:24
AST 50 U/L (17-59) 10/23/24 21:24
ALT 16 U/L (0-50) 10/23/24 21:24
Alkaline Phosphatase 95 U/L (38-126) 10/23/24 21:24
Troponin I 4.870 ng/ml H* 10/23/24 21:24
Data Reviewed
-
Lab Data: Labs Reviewed by me
Old Records: Reviewed
Impression/Plan
-
IMPRESSION:
PLAN:
# NSTEMI
# History of CAD status post CABG
-Vomiting seems to be secondary to NSTEMI, QTc of 516 so use Tigan
-No longer having chest pain
- Troponin of 4.8
- Initial EKG showed run of V. tach, repeat EKG showed sinus tachycardia with left bundle branch block not present previously, ST depressions in leads V2-V5
- Trend troponins
- Check echocardiogram
- Continue aspirin, Plavix, statin
- Heparin drip
- Cardiology consulted
# Hypoxemic respiratory failure multifactorial secondary to acute CHF exacerbation/aspiration pneumonia/ILD
-Currently on 5 L oxygen
- Chest x-ray shows interstitial pulmonary edema
- Cardiac BNP 6300
- Check I's and O's, daily weight
- 40 IV Lasix
# Nonsustained Ventricular tachycardia run
- Given Lopressor with improvement in heart rate
-check Magnesium
- Maintain potassium greater than 4, magnesium greater than 2
# Likely component of aspiration pneumonia from vomiting
-Leukocytosis
- Lactic acid 3.3, continue to trend
- Check blood cultures
-Vancomycin/Zosyn
- N.p.o. for now
# Hyperglycemia secondary to likely infection
# Type 2 diabetes
- Hold metformin
-Check A1c
- Insulin sliding scale
History of COPD/interstitial lung disease
- Not on home oxygen
- Ipratropium nebulizes every 6 hours as needed
Active smoker
- 3 cigarettes a day
Alzheimer's dementia
Essential hypertension
Hyperlipidemia
CKD 3
- Renal function at baseline
Anxiety/depression
Neurogenic bladder chronic Cummins catheter
GERD
Full code
DVT prophylaxis�heparin drip
N.p.o.
[2024-10-23] MEDS: HEPARIN 25000 UNITS/250 ML IV (23:20)
[2024-10-23] MEDS: HEPARIN 4000 UNITS IV (23:20)
[2024-10-23] MEDS: LASIX 40 MG IV (23:24)
[2024-10-23] MEDS: LOW STRENGTH ASPIRIN 324 MG PO (23:25)
[2024-10-23] MEDS: ZOSYN 50 IV (23:28)
[2024-10-23 23:36] LABS: APTT 26.1 Sec (23.4-35.0)
[2024-10-24] VITALS (11 sets, daily range): BP systolic 101–136; BP diastolic 56–93; BMI 26.2
[2024-10-24] MEDS: VANCOCIN 540 MG IV
[2024-10-24 01:04] LABS: Glucose - Point of Care 344 mg/dl (70-99)
[2024-10-24 01:29] LABS: Magnesium 2.1 mg/dl (1.6-2.3)
[2024-10-24 03:06] LABS: Urine Character Clear (Clear)
[2024-10-24 03:30] LABS: Troponin I 34.100 ng/ml
[2024-10-24 03:48] LABS: Urine Squamous Cell None seen /LPF (Few)
[2024-10-24 03:49] LABS: Urine White Cell 16-20 /HPF (0-5)
--- NOTE | 2024-10-24 03:54 | PTCARENOTE ---
Received pt from ED via stretcher. Oriented only to self. Unable to obtain admission information d/t poor historian and not oriented to current situation. On 6L NC but able to wean to 5L at 97%. Pt offers no complaints of pain at this time.
Stage 2 on sacrum - foam applied; Q2T; foams applied to b/l heels for protection. Chronic nguyen replaced in IMU. New urine sample sent to lab with new order obtained by BOTTLE LABEL INSPECTOR. 2nd Trop results at 34.100 - notified BOTTLE LABEL INSPECTOR. EKG done with trop.
Heparin gtt currently infusing through left AC at 850 units/hr. Pt resting in bed with call schneider in reach.
[2024-10-24] MEDS: NOVOLOG FLEXPEN-LOW RESISTANCE 1 UNITS SC (05:41)
[2024-10-24 05:52] LABS: Glucose - Point of Care 198 mg/dl (70-99)
[2024-10-24] MEDS: ZOSYN 50 IV (06:12)
[2024-10-24 06:34] LABS: Hematocrit 32.9 % (39.0-52.0); Hemoglobin 11.0 g/dL (13.0-18.0); Mean Corp Hgb Conc. 33.4 g/dL (33.0-37.0); Mean Corpuscular Volume 83.7 fL (80.0-94.0); Nucleated Red Blood Cells % 0 % (-); Platelet Count 230 10^3/uL (130-400); Red Cell Dist. Width 14.1 % (11.5-14.5)
[2024-10-24 06:41] LABS: APTT 34.6 Sec (23.4-35.0)
[2024-10-24 06:50] LABS: ALT (SGPT) 23 U/L (0-50); AST (SGOT) 164 U/L (17-59); Albumin 3.7 g/dl (3.5-5.0); Alkaline Phosphatase 82 U/L (38-126); Blood Urea Nitrogen 30 mg/dl (9-20); Calcium 8.7 mg/dl (8.4-10.2); Carbon Dioxide 25 mmol/L (22-30); Chloride 109 mmol/L (98-107); Estimated Creatinine Clearance 41 ml/min; Glucose 192 mg/dl (70-99); Potassium 4.2 mmol/L (3.5-5.1); Sodium 141 mmol/L (135-145); Total Protein 6.7 g/dl (6.3-8.2); eGFR 56.23
--- NOTE | 2024-10-24 08:16 | CON.CAR ---
Addendum entered and electronically signed by Adrian Urbina MD 10/24/24 14:41:
I saw and examined the patient.
The APPLIQUER's note was reviewed and I agree with the note.
Comment:
Imp
NSTEMI
Acute heart failure
NSVT
Dementia
Known beaver and graft CAD
Suggestion
Pursue DNR/palliative care
Prognosis very poor
His advanced dementia mcgowan him as a poor candidate for the invasive intervention. I will not offer him a cardiac cath, EPS, or ICD treatment (not yet indicated even if he were a candidate)
Will focus on palliative care with diuresis, med rx of heart failure, CAD, and VT
Original Note:
Consultation
Consultation Request
Date/Time Consultation Requested: 10/24/24 0019
Date/Time Consultation Performed: 10/24/24 0800
Requesting Provider: Dr. Benedict
Performing Provider: Jenny HADLEY for Dr. Urbina
Reason for Consultation: Abnormal troponin, NSVT
Medical History
-
Chief Complaint: CP, SOB, cough per chart
History of Present Illness:
78-year-old male (known to Dr. Redmond, his primary organic lab worker at [facility]) with CAD (CABG 2009, NSTEMI with PCI 2021), dyslipidemia, NIDDM, CKD3a, ambulatory dysfunction, chronic Cummins/neurogenic bladder, lung disease
(ILD/emphysema per hospitalist note), and dementia who is here from half-way for evaluation after he vomited following eating, and developed SOB. There are also reports of chest discomfort. BP was low. Fluids given. O2 placed. There were runs of
NSVT. BB administered. Also intermittent LBBB was noted. WBC is up and there is concern for asp PNA and IV abx given. Lasix also given. Patient has hx dementia and is a poor historian. HPI obtained from chart. He does not know where he is or why. He
denies any CP. Reports his breathing is tough. He has pain all over.
Past Medical History
Past Medical History: CAD, CVA, Hypercholesterolemia, NIDDM, Renal Failure (CKD 3 AA) and Psychiatric (Dementia)
Past Surgical History: Cardiac (CABG)
Social History
Living: Long Term
Family History
Family History: Reviewed & Not Pertinent
Allergies / Home Medications
Allergy/AdvReac Type Severity Reaction Status Date / Time
No Known Allergies Allergy Verified 06/21/24 14:45
�Medication �Instructions �Recorded �Confirmed �Type
acetaminophen 325 mg tablet 650 mg PO Q4HPRN PRN mild 10/25/21 10/24/24 History
pain/temp>100f
aspirin 81 mg tablet,delayed 81 mg PO DAILY Blood clot 10/25/21 10/24/24 History
release prevention/tx
bisacodyl 10 mg rectal suppository 10 mg IL DAILYPRN PRN if mom 10/25/21 10/24/24 History
(Dulcolax (bisacodyl)) ineffective
magnesium hydroxide 400 mg/5 mL 30 ml PO DAILYPRN PRN if no bm x 3 10/25/21 10/24/24 History
oral suspension (Milk of Magnesia) days
metoprolol succinate 25 mg 25 mg PO DAILY Blood pressure 10/25/21 10/24/24 History
tablet,extended release 24 hr
sodium phosphates 19 gram-7 118 ml IL DAILYPRN PRN if dulcolax 10/25/21 10/24/24 History
gram/118 mL enema (Fleet Enema) ineffective after 24 hours
docusate sodium 100 mg capsule 200 mg PO HS Constipation 03/24/23 10/24/24 History
emollient 1 applic topical TID b/l ear ##0 03/24/23 10/24/24 History
polyethylene glycol 3350 17 gram 17 g PO MOWEFR constipation 03/24/23 10/24/24 History
oral powder packet (Miralax)
loperamide 2 mg tablet 2 mg PO Q8HPRN PRN loose stool 06/21/24 10/24/24 History
oxycodone 5 mg tablet 5 mg PO DAILY 06/21/24 10/24/24 History
oxycodone 5 mg tablet 5 mg PO Q6HPRN PRN severe pain 06/21/24 10/24/24 History
acetaminophen 650 mg rectal 650 mg IL Q6HPRN PRN elevated 10/24/24 10/24/24 History
suppository temperature
hyoscyamine sulfate 0.125 mg 0.125 mg PO Q4HPRN PRN secretions 10/24/24 10/24/24 History
sublingual tablet
lorazepam 0.5 mg tablet 0.5 mg PO Q6HPRN PRN anixety 10/24/24 10/24/24 History
prochlorperazine maleate 5 mg 5 mg PO Q6HPRN PRN nausea 10/24/24 10/24/24 History
tablet
Review of Systems
-
Unable to obtain full review of systems at this time due to: Dementia
History Source: Other (chart)
Respiratory: Cough and Trouble Breathing
Cardiac: Chest Pain
Abdomen/GI: Nausea and Vomiting
Physical Exam
Vital Signs
Temp Pulse Resp BP Pulse Ox
97.7 F 82 27 103/79 100
10/24/24 07:38 10/24/24 06:00 10/24/24 06:00 10/24/24 06:00 10/24/24 06:00
Lab Results
10/24/24 06:23
10/24/24 06:23
Troponin I Cancelled 10/24/24 18:19
Roy-K-Lsycidkdwan Pept 6310 pg/ml 10/23/24 21:24
Physical Exam
General: Well Developed, Well Nourished and No Apparent Distress
HEENT: Normocephalic and Anicteric
Respiratory: Other (on O2 by NC; coarse lung sounds throughout)
Cardiac: Regular Rhythm
Musculoskeletal: No Edema
Skin: Warm and Dry
Neuro: AO x 3
Psych: Calm
Impression / Plan
-
NSTEMI:
-this diagnosis is threat to life. Currently denies CP.
-trop up to 34. Trend to Peak. Obtain echo.
-plan to treat medically, as not appropriate for cath at this time with his suspected aspiration PNA (requiring O2 by NC and IV abx), as well as seemingly significant dementia, and no CP. He received ASA and Plavix- continue. Continue IV heparin,
which requires intensive monitoring. Continue BB and statin. Would increase latter to high intensity. However, AST elevated and starting amiodarone for NSVT, so would monitor first to ensure not rising.
CAD with hx CABG and stenting:
-known significant CAD with last cath 2021 (per OP chart), revealing all 3 beaver coronary arteries severely disease. 2/3 grafts patent. Critical stenosis VG to RPL. It was stented. Balloon angio of beaver OM1 also done.
-continue ASA, Plavix, statin, BB
Acute HF, type unknown (LV function normal on most recent echo):
-BNP 6310, CXR suggestive CHF.
-will give IV Lasix and monitor response
-update echo
NSVT:
-longest 15 seconds
-will add amiodarone
-mag and K+ fine
-checking echo
Suspected aspiration PNA:
-on ABX
-management per primary
Underlying lung disease- COPD/ILD per primary team
DM
HLD
hx CVA
CKD
Dementia
Data Reviewed
-
EKG: Tracing Personally Visualized and interpreted (NSR 97 BPM, ST ST and T abnormality)
Radiology: Report Reviewed by me (CXR: Interstitial pulmonary edema.)
Medical Tests (Nuc Med, Echo etc): Report Reviewed by me (Echo 05/31/24: Left ventricular ejection fraction is approximately 50%, by visual assessment. Basal to mid anteroseptal, inferoseptal, and inferior hypokinesis. Aortic sclerosis without
stenosis. Mild tricuspid regurgitation. PAP 35-40 mmHG)
Labs: Labs Reviewed by me
Scores
ISAIAS for NSTEMI
Age >/= 65: Yes
>/=3 CAD risk factors-HTN,High Chol,Fam hx CAD,DM,Smoker: No
Known CAD (stenosis >/=50%): Yes
ASA use in past 7 days: Yes
Severe angina (>/= 2 episodes in 24 hrs): No
EKG ST Changes >/= 0.5mm: No
Positive cardiac marker: Yes
Score: 4
Risk at 14 days-mortality, new/recurrent NH, severe ischemia: Intermediate Risk- 20% Risk at 14 days- all cause mortality, new or recurrent NH, or severe recurrent ischemia requiring urgent revascularization
[2024-10-24] MEDS: PLAVIX 75 MG PO (08:48)
[2024-10-24] MEDS: TOPROL XL 25 MG PO (08:48)
[2024-10-24] MEDS: ASPIR LOW (ENTERIC COATED) 81 MG PO (08:48)
[2024-10-24 09:05] LABS: Troponin I 53.500 ng/ml
[2024-10-24 11:00] LABS: Glycohemoglobin (HgbA1c) 6.3 % (4.0-5.6)
--- NOTE | 2024-10-24 11:36 | W.PN.UPDATE ---
Update Note
Progress Note Update
Spoke with Eli Fabian who is patient's [id number] and power of estate planning attorney. We discussed the seriousness of his current condition with NSTEMI and that the assessment analyst evaluated him and felt that he would not be a candidate for aggressive
treatment. We discussed the possibility of comfort care which Eli agreed was reasonable. She further clarified that the patient had recently [facility] due to a severe kidney infection however subsequently recovered
and was discharged from hospice care. We agreed to initiate comfort measures now and Eli would contact the patient's previous hospice team. Inpatient case management team has also been notified.
[2024-10-24 12:07] LABS: Glucose - Point of Care 147 mg/dl (70-99)
[2024-10-24] MEDS: LASIX 20 MG IV ×2 (12:14→17:29)
[2024-10-24] MEDS: MORPHINE SULFATE 1 MG IV ×4 (12:14→23:10)
--- NOTE | 2024-10-24 12:53 | W.PN.HOSP.TC ---
Addendum entered and electronically signed by Otf Stahl DO 10/27/24 11:38:
Acute systolic heart failure is a valid diagnosis (confirmed)
Original Note:
Today's Communication/Plan
-
Assessment / Plan
Assessment / Plan
General: Chronically ill-appearing, short of breath
HEENT: NormoCephalic, Moist mucous membranes, nasal cannula in place
Respiratory: Decreased breath sounds bilaterally, slightly increased work of breathing
Cardiac: S1/S2 and Regular Rhythm; No Rub or Gallop
GI: Soft, Non Tender, Non Distended and Normal Bowel Sounds
Musculoskeletal: No Edema, no deformity
Skin: Warm and dry
: Cummins in place
Neuro: Awake, Alert, intermittent confusion, memory loss
Psych: Calm and cooperative
Mr. Fabian is a 78-year-old male with medical history of CAD status post CABG and subsequent PCI, CKD stage IIIa, emphysema/interstitial lung disease, neurogenic bladder with chronic Cummins, and Alzheimer's dementia who presented with chest pain,
shortness of breath, and nausea with vomiting.
NSTEMI:
- Troponins continue to uptrend
- Started on IV heparin drip and clopidogrel
- Evaluated by cardiology who felt he was a very poor candidate for invasive management including cardiac cath
- Goals of care discussion with [id number] Eli who is also his power of prosecuting attorney, decision was made to transition to comfort care
- Potentially transitioning to hospice care, discussions ongoing
DVT prophylaxis: None, comfort care
CODE STATUS: DNR, confirmed with power of prosecuting attorney
Total time spent on today's encounter was 60 minutes
Anticipated Discharge: > 48 hours
Subjective/Interval History
-
Date of Service: October 24, 2024
Patient was seen and examined at bedside this morning. On heparin drip for NSTEMI. Not a candidate for invasive management.
Objective Data
-
Labs:
Laboratory Results
10/24/24 10/24/24
06:23 13:00
WBC 11.0 H
Hgb 11.0 L
Hct 32.9 L
Plt Count 230
APTT 34.6 Pending
Sodium 141
Potassium 4.2
Chloride 109 H
Carbon Dioxide 25
BUN 30 H
Creatinine 1.3
Glucose 192 H
Calcium 8.7
Total Bilirubin 0.8
AST 164 H
ALT 23
Alkaline Phosphatase 82
Vital Signs:
Vital Signs
Temp Pulse Resp BP Pulse Ox
97.1 F 81 29 103/66 94
10/24/24 11:39 10/24/24 12:14 10/24/24 12:00 10/24/24 12:14 10/24/24 12:25
I&O
10/23/24 10/24/24 10/25/24
06:59 06:59 06:59
Intake Total 50 / 50
Output Total 850 / 850
Balance -850 / -850 50 / 50
Review of Systems
-
Unable to obtain full review of systems at this time due to: Dementia
History Source: Patient
All other systems: Reviewed and negative
Constitutional: Reports Fatigue and Weakness
Respiratory: Reports Trouble Breathing
Physical Exam
-
General: Appears Chronically Ill
--- NOTE | 2024-10-24 13:27 | HOSPNOTE ---
Spoke with family about hospice and the philosophy. The plan is to remain comfort this evening and we speak with family again in the am and if all in agreement will admit inpatient hospice. Attending and CM notified and I believe patient will meet
criteria to remain inpatient hospice for management of pain and shortness of breath. More information to follow.
--- NOTE | 2024-10-24 14:12 | PTCARENOTE ---
Patient started on comfort care. Patient complaining of generalized pain, treated with Morphine with relief. Patient objectively comfortable. For transfer to room 335 shortly.
--- NOTE | 2024-10-24 14:32 | CM ---
CM reviewed chart and noted hospice consult
Pt is a [facility] from [facility]
Discussion with attending, pt placed on comfort measures
Referral to Hospice- anticipate GIP tomorrow
Update to Judy/SNF admissions
Discharge Disposition- comfort care, anticipate GIP admission
--- NOTE | 2024-10-24 15:11 | PTCARENOTE ---
Report given to Madai HERNANDEZ for transfer to room 429. Dose of Morphine administered for moderate pain prior to transfer. Pain management discussed during report. Family at bedside.
[2024-10-24 17:00] LABS: Glucose - Point of Care 148 mg/dl (70-99)
[2024-10-24 22:16] LABS: Glucose - Point of Care 192 mg/dl (70-99)
[2024-10-25] MEDS: MORPHINE SULFATE 1 MG IV ×2 (03:26→12:06)
[2024-10-25 07:31] LABS: Hematocrit 30.8 % (39.0-52.0); Hemoglobin 10.2 g/dL (13.0-18.0); Mean Corp Hgb Conc. 33.1 g/dL (33.0-37.0); Mean Corpuscular Volume 83.7 fL (80.0-94.0); Platelet Count 199 10^3/uL (130-400); Red Cell Dist. Width 14.2 % (11.5-14.5)
[2024-10-25 07:45] LABS: Glucose - Point of Care 158 mg/dl (70-99)
[2024-10-25 08:04] LABS: ALT (SGPT) 21 U/L (0-50); AST (SGOT) 82 U/L (17-59); Albumin 3.7 g/dl (3.5-5.0); Alkaline Phosphatase 81 U/L (38-126); Blood Urea Nitrogen 31 mg/dl (9-20); Calcium 8.6 mg/dl (8.4-10.2); Carbon Dioxide 25 mmol/L (22-30); Chloride 109 mmol/L (98-107); Estimated Creatinine Clearance 41 ml/min; Glucose 143 mg/dl (70-99); Potassium 3.5 mmol/L (3.5-5.1); Sodium 141 mmol/L (135-145); Total Protein 6.5 g/dl (6.3-8.2); eGFR 56.23
--- NOTE | 2024-10-25 08:07 | W.PN.CD ---
Addendum entered and electronically signed by Jose Harris MD 10/25/24 08:34:
Cardiology will sign off at this time. Please call with any additional questions or concerns.
Original Note:
Today's Communication / Plan
-
Stop BB if patient ready for Hospice
Switch Lasix to prn for SOB
Impression / Plan
-
Mr. Fabian is a 78-year-old male with medical history of CAD status post CABG and subsequent PCI, CKD stage IIIa, emphysema/interstitial lung disease, neurogenic bladder with chronic Cummins, and Alzheimer's dementia who presented with chest pain,
shortness of breath, and nausea with vomiting found to have NSTEMI, not a candidate for invasive management. Now transitioned to comfort care.
NSTEMI with HF
-Can stop BB if patient is ready to transition to Hospice
-Currently getting BID Lasix. Would switch to prn for comfort
Suspected aspiration PNA:
Underlying lung disease- COPD/ILD
DM
HLD
hx CVA
CKD
Dementia
Subjective: Feels well. No complaints.
Physical Exam
Vital Signs/Labs
Vital Signs
Temp Pulse Resp BP Pulse Ox
97.4 F 98 18 107/70 95
10/24/24 23:55 10/24/24 23:55 10/24/24 23:55 10/24/24 23:55 10/24/24 23:55
10/24/24 10/25/24 10/26/24
06:59 06:59 06:59
Actual Weight 157 lb 3 oz
10/25/24 07:05
10/25/24 07:05
APTT Cancelled 10/24/24 13:00
Magnesium 2.1 mg/dl (1.6-2.3) 10/23/24 21:24
10/23/24
21:24
Mud-T-Zawlczfkjmg Pept 6310
LAB Results
10/23/24 10/24/24 10/24/24
21:24 00:19 02:53
Troponin I 4.870 H* Cancelled 34.100 H* D
10/24/24 10/24/24 10/24/24
06:19 08:30 12:19
Troponin I Cancelled 53.500 H* D Cancelled
10/24/24 10/24/24 10/24/24
15:30 18:19 21:30
Troponin I Cancelled Cancelled Cancelled
Physical Exam
Deferred physical exam to minimize patient discomfort
Data Reviewed
-
Date of Service: October 25, 2024
Medical Decision Making: Reviewed Test Results, Independent Historian Assessment, Test Interpretation and Review of Case with other Provider
Labs: Labs Reviewed by me
[2024-10-25 08:08] VITALS: BP 99/63
[2024-10-25] MEDS: LASIX IV (09:01)
[2024-10-25] MEDS: TOPROL XL PO (09:26)
--- NOTE | 2024-10-25 10:37 | HOSPNOTE ---
Spoke with family and they are in agreement to keep patient inpatient hospice. Admissions was called and CM updated with plan Patient will be moved to [facility].
--- NOTE | 2024-10-25 11:58 | CM ---
Chart reviewed and [facility] have met with patient and plan is to transfer to [address] [place] [address] to [facility], hospice with [facility].
Plan; GIP, patient to transfer to [address] [place] [address].
--- NOTE | 2024-10-25 13:31 | W.PN.HOSP.TC ---
Today's Communication/Plan
-
Assessment / Plan
Assessment / Plan
General: Chronically ill-appearing, comfortable
HEENT: NormoCephalic, Moist mucous membranes
Respiratory: Decreased breath sounds bilaterally, no increased work of breathing currently
Cardiac: S1/S2 and Regular Rhythm; No Rub or Gallop
GI: Soft, Non Tender, Non Distended and Normal Bowel Sounds
Musculoskeletal: No Edema, no deformity
Skin: Warm and dry
: Cummins in place
Neuro: Somnolent but arousable, no tremor
Psych: Unable to assess
Mr. Fabian is a 78-year-old male with medical history of CAD status post CABG and subsequent PCI, CKD stage IIIa, emphysema/interstitial lung disease, neurogenic bladder with chronic Cummins, and Alzheimer's dementia who presented with chest pain,
shortness of breath, and nausea with vomiting.
NSTEMI:
- Uptrending troponins with significant dyspnea
- Initially started on IV heparin drip and clopidogrel
- Evaluated by cardiology who felt he was a very poor candidate for invasive management including cardiac cath
- Goals of care discussion with [id number]-nse Eli who is also his power of bag machine helper, decision was made to transition to comfort care
- Has been evaluated by hospice, awaiting formal transition to inpatient hospice care
DVT prophylaxis: None, comfort care
CODE STATUS: DNR, confirmed with power of bag machine helper
Total time spent on today's encounter was 42 minutes
Anticipated Discharge: 24 - 48 hours
Subjective/Interval History
-
Date of Service: October 25, 2024
Patient was seen and examined at bedside this morning. Appears more comfortable although also more somnolent. Has been transitioned to comfort care, awaiting formal inpatient hospice placement.
Objective Data
-
Labs:
Laboratory Results
10/25/24
07:05
WBC 10.7
Hgb 10.2 L
Hct 30.8 L
Plt Count 199
Sodium 141
Potassium 3.5
Chloride 109 H
Carbon Dioxide 25
BUN 31 H
Creatinine 1.3
Glucose 143 H
Calcium 8.6
Total Bilirubin 1.1
AST 82 H
ALT 21
Alkaline Phosphatase 81
Vital Signs:
Vital Signs
Temp Pulse Resp BP Pulse Ox
99.1 F 104 18 99/63 92
10/25/24 08:08 10/25/24 08:08 10/25/24 08:08 10/25/24 08:08 10/25/24 09:00
I&O
10/24/24 10/25/24 10/26/24
06:59 06:59 06:59
Intake Total 50 / 50
Output Total 850 / 850 700 / 700
Balance -850 / -850 50 / 50 -700 / -700
Review of Systems
-
Unable to obtain full review of systems at this time due to: Acuity
Physical Exam
-
General: Appears Chronically Ill
--- NOTE | 2024-10-25 14:39 | W.DCSUMMARY ---
Discharge Summary
Discharge Data
Date of Admission: 10/23/24
Date of Discharge: 10/25/24
Total time spent discharging patient (in min): 52
-
Pending Results: No
Hospital Course
Mr. Fabian is a 78-year-old male with medical history of CAD status post CABG and subsequent PCI, CKD stage IIIa, emphysema/interstitial lung disease, neurogenic bladder with chronic Cummins, and Alzheimer's dementia who presented with chest pain,
shortness of breath, and nausea with vomiting. He was found to have an NSTEMI with troponin significantly uptrending and ongoing dyspnea. He was initially started on IV heparin drip and antiplatelet therapy. He was evaluated by cardiology and
deemed to be a very poor candidate for invasive management. After goals of care discussion with his family decision was made to transition to comfort care. He is now being admitted to inpatient hospice.
Discharge Plan
-
Patient Disposition: Hospice - Inpatient
Discharge Diagnosis/Procedures: NSTEMI
Activity Restrictions/Additional Instructions:
Mr. Fabian is a 78-year-old male with medical history of CAD status post CABG and subsequent PCI, CKD stage IIIa, emphysema/interstitial lung disease, neurogenic bladder with chronic Cummins, and Alzheimer's dementia who presented with chest pain,
shortness of breath, and nausea with vomiting. He was found to have an NSTEMI with troponin significantly uptrending and ongoing dyspnea. He was initially started on IV heparin drip and antiplatelet therapy. He was evaluated by cardiology and
deemed to be a very poor candidate for invasive management. After goals of care discussion with his family decision was made to transition to comfort care. He is now being admitted to inpatient hospice.
Referrals:
Ash Ying DO [Family Provider, Internal Medicine]
Prescriptions:
Discontinued
acetaminophen 325 mg Tablet
650 mg PO Q4HPRN MDD 3000mg PRN (Reason: mild pain/temp>100f)
aspirin 81 mg Tablet,Delayed Release (Dr/Ec)
81 mg PO DAILY
magnesium hydroxide [Milk of Magnesia] 400 mg/5 mL Suspension
30 ml PO DAILYPRN PRN (Reason: if no bm x 3 days)
bisacodyl [Dulcolax (bisacodyl)] 10 mg Suppository
10 mg MO DAILYPRN PRN (Reason: if mom ineffective)
Fleet Enema 19-7 gram/118 mL Enema
118 ml MO DAILYPRN PRN (Reason: if dulcolax ineffective after 24 hours)
metoprolol succinate 25 mg Tablet Extended Release 24 Hr
25 mg PO DAILY
polyethylene glycol 3350 [Miralax] 17 gram Powder In Packet
17 g PO MOWEFR
docusate sodium 100 mg Capsule
200 mg PO HS
emollient Cream
1 applic TOPICAL TID Qty: 0
oxycodone 5 mg Tablet
5 mg PO Q6HPRN PRN (Reason: severe pain)
loperamide 2 mg Tablet
2 mg PO Q8HPRN PRN (Reason: loose stool)
oxycodone 5 mg tablet
5 mg PO DAILY
acetaminophen 650 mg Suppository
650 mg MO Q6HPRN PRN (Reason: elevated temperature)
prochlorperazine maleate 5 mg Tablet
5 mg PO Q6HPRN PRN (Reason: nausea)
lorazepam 0.5 mg Tablet
0.5 mg PO Q6HPRN PRN (Reason: anixety)
hyoscyamine sulfate 0.125 mg Tablet, Sublingual
0.125 mg PO Q4HPRN PRN (Reason: secretions)
Discharge Orders:
Discharge Patient (As Directed); Ordered 10/25/24
Ordered By: Otf Stahl
Discharge Date and Time
Print Language: AZERI
[2024-10-25 15:20] VITALS: BP 115/74
--- NOTE | 2024-10-25 16:00 | PN.CDI ---
CDI
- -
CDI:
Physician Documentation Request
Admit Date: 10/23/24 23:25
Dear Doctor Favio,
10/24 cardiology consultation states 'acute HF, type unknown'
10/23 chest xray impression states 'Interstitial pulmonary edema'
BNP 10/23 6310
Patient received IV lasix.
Echo from 10/24 shows an EF of 25-30%
Please indicate in your progress notes if you are in agreement that the above diagnosis is valid for this patient:
____ - Acute heart failure is a valid diagnosis (Please indicate type)
____ - Acute heart failure is not a valid diagnosis for this patient
____ - Other
Use of terms such as suspected, likely, concern for, or probable are acceptable for a diagnosis that is being evaluated, monitored or treated as if it exists and can be coded in the inpatient setting, when documented at the time of discharge.
Thank you,
Sandy Parham RN, BSN
CDI Specialist
tiger text
Please use your independent medical judgment in providing your response.
== END 2024-10-25 15:29 | disposition hospice, inpatient (51) | DRG 280 ==
LOC: 4 WEST ACU 23:25
PROVIDERS: Nurse Practitioner; Nurse Practitioner Family; ADMITTING PHYSICIAN Hospitalist; ATTENDING PHYSICIAN Internal Medicine; EMERGENCY PHYSICIAN Emergency Medicine; FAMILY PHYSICIAN Internal Medicine; OTHER PHYSICIAN Internal Medicine Cardiovascular Disease
DX: I21.4 Non-ST elevation (NSTEMI) myocardial infarction (principal); I50.21 Acute systolic (congestive) heart failure; J69.0 Pneumonitis due to inhalation of food and vomit; J96.91 Respiratory failure, unspecified with hypoxia; I47.20 Ventricular tachycardia, unspecified; Z51.5 Encounter for palliative care; Z66 Do not resuscitate; I13.0 Hypertensive heart and chronic kidney disease with heart failure and stage 1 through stage 4 chronic kidney disease, or unspecified chronic kidney disease; J84.9 Interstitial pulmonary disease, unspecified; F02.83 Dementia in other diseases classified elsewhere, unspecified severity, with mood disturbance; F02.84 Dementia in other diseases classified elsewhere, unspecified severity, with anxiety; I25.10 Atherosclerotic heart disease of native coronary artery without angina pectoris; I95.9 Hypotension, unspecified; E78.00 Pure hypercholesterolemia, unspecified; N18.31 Chronic kidney disease, stage 3a; J43.9 Emphysema, unspecified; G30.9 Alzheimer's disease, unspecified; F32.A Depression, unspecified; I34.0 Nonrheumatic mitral (valve) insufficiency; N31.9 Neuromuscular dysfunction of bladder, unspecified; F17.210 Nicotine dependence, cigarettes, uncomplicated; E11.65 Type 2 diabetes mellitus with hyperglycemia; E11.22 Type 2 diabetes mellitus with diabetic chronic kidney disease; I25.2 Old myocardial infarction; K21.9 Gastro-esophageal reflux disease without esophagitis; I44.7 Left bundle-branch block, unspecified; Z95.1 Presence of aortocoronary bypass graft; Z95.5 Presence of coronary angioplasty implant and graft; Z86.711 Personal history of pulmonary embolism; Z79.82 Long term (current) use of aspirin; Z79.84 Long term (current) use of oral hypoglycemic drugs; Z79.02 Long term (current) use of antithrombotics/antiplatelets; Z79.899 Other long term (current) drug therapy; Z86.73 Personal history of transient ischemic attack (TIA), and cerebral infarction without residual deficits
CPT/HCPCS: 71045; 80053; 81003; 81015; 82962; 83036; 83605; 83735; 83880; 84484; 85025; 85027; 85730; 87040; 87070; 87086; 93005; 93306; 96374; 99291

== ENCOUNTER 2024-10-25 15:30 | Inpatient (IN) | payer OTHER, SELFPAY ==
--- NOTE | 2024-10-25 14:45 | ADM.HSP ---
Admission - Hospice
History of Present Illness
Mr. Fabian is a 78-year-old male with medical history of CAD status post CABG and subsequent PCI, CKD stage IIIa, emphysema/interstitial lung disease, neurogenic bladder with chronic Cummins, and Alzheimer's dementia who presented with chest pain,
shortness of breath, and nausea with vomiting. He was found to have an NSTEMI with troponin significantly uptrending and ongoing dyspnea. He was initially started on IV heparin drip and antiplatelet therapy. He was evaluated by cardiology and
deemed to be a very poor candidate for invasive management. After goals of care discussion with his family decision was made to transition to comfort care. He is now being admitted to inpatient hospice.
Reason for Hospice Admission
Comfort care
Review of Systems
Unable to obtain full review of systems at this time due to: Acuity
History Source: Family and Other (Medical records)
Physical Exam
General: Chronically ill-appearing, comfortable
HEENT: NormoCephalic, Moist mucous membranes
Respiratory: Decreased breath sounds bilaterally, no increased work of breathing currently
Cardiac: S1/S2 and Regular Rhythm; No Rub or Gallop
GI: Soft, Non Tender, Non Distended and Normal Bowel Sounds
Musculoskeletal: No Edema, no deformity
Skin: Warm and dry
: Cummins in place
Neuro: Somnolent but arousable, no tremor
Psych: Unable to assess
Assessment/Medication Plan
General: Chronically ill-appearing, comfortable
HEENT: NormoCephalic, Moist mucous membranes
Respiratory: Decreased breath sounds bilaterally, no increased work of breathing currently
Cardiac: S1/S2 and Regular Rhythm; No Rub or Gallop
GI: Soft, Non Tender, Non Distended and Normal Bowel Sounds
Musculoskeletal: No Edema, no deformity
Skin: Warm and dry
: Cummins in place
Neuro: Somnolent but arousable, no tremor
Psych: Unable to assess
Mr. Fabian is a 78-year-old male with medical history of CAD status post CABG and subsequent PCI, CKD stage IIIa, emphysema/interstitial lung disease, neurogenic bladder with chronic Cummins, and Alzheimer's dementia who presented with chest pain,
shortness of breath, and nausea with vomiting. He was found to have an NSTEMI with troponin significantly uptrending and ongoing dyspnea. He was initially started on IV heparin drip and antiplatelet therapy. He was evaluated by cardiology and
deemed to be a very poor candidate for invasive management. After goals of care discussion with his family decision was made to transition to comfort care. He is now being admitted to inpatient hospice.
Comfort care:
- Comfort measures initiated including IV morphine pushes with progression to morphine drip as needed
CODE STATUS: DNR
Total time spent on today's encounter was 53 minutes
--- NOTE | 2024-10-25 16:00 | PTCARENOTE ---
1600 Pt transferred to in patient hospice. Pt currently in room 429, awaiting bed 2 [facility] unit. Reposition pt in bed 2 assist, pt calm and resting.
No acute discomfort noted. Cummins remain intact to bedside drainage, continue to monitor closely.
--- NOTE | 2024-10-25 18:15 | PTCARENOTE ---
1815 Pt transferred to [address] 2135 via bed. Pt resting, calm, report given to [address] nurse.
[2024-10-25] MEDS: MORPHINE SULFATE 1 MG IV ×2 (18:27→19:54)
[2024-10-25] MEDS: ROBINUL 0.2 MG IV (18:28)
[2024-10-25 18:34] VITALS: BP 121/82
--- NOTE | 2024-10-25 18:52 | HOSPNOTE ---
Patient admitted inpatient hospice level of care. Patient is inpatient for the management of pain, dyspnea and anxiety that could not be managed in the outpatient setting. Patient also with terminal secretions and needing iv robinul prn. Hospice
will visit daily.
[2024-10-25 19:00] VITALS: BP 120/67
--- NOTE | 2024-10-25 19:09 | PTCARENOTE ---
Mr. Fabian is a 78-year-old male with medical history of CAD status post CABG and subsequent PCI, CKD stage IIIa, emphysema/interstitial lung disease, neurogenic bladder with chronic Cummins, and Alzheimer's dementia who presented with chest pain,
shortness of breath, and nausea with vomiting. He was found to have an NSTEMI with troponin significantly uptrending and ongoing dyspnea. He was initially started on IV heparin drip and antiplatelet therapy. He was evaluated by cardiology and
deemed to be a very poor candidate for invasive management. After goals of care discussion with his family decision was made to transition to comfort care. He is now being admitted to inpatient hospice.
--- NOTE | 2024-10-25 21:13 | W.PN.DEATH ---
Pronouncement of
-
Called to see patient to pronounce.
No spontaneous heart tones or respirations noted.
Patient not responsive to verbal stimuli.
Patient is pronounced .
Time of : 20:50
Date of : 10/25/24
Family Notified: Yes
--- NOTE | 2024-10-25 23:06 | PTCARENOTE ---
10/25: Pt assessed at bedside. pt in distress. see mar. medicated per symptoms. when reentering for rounds, pt .
--- NOTE | 2024-10-26 00:30 | PTCARENOTE ---
10/25: pt . no heart sounds/ lung sounds auscultated. Director [place] notified. patient pronounced at 2049. family notified. postmortem care provided per protocol. [facility] called.
--- NOTE | 2024-10-26 08:40 | W.DCSUMMARY ---
Addendum entered and electronically signed by Otf Stahl DO 10/26/24 11:15:
Acute systolic heart failure is a valid diagnosis (confirmed)
Addendum entered and electronically signed by Otf Stahl, 10/26/24 11:15:
Acute heart failure is a valid diagnosis (suspect systolic although not able to confirm)
Original Note:
Discharge Summary
Discharge Data
Date of Admission: 10/25/24
Date of Discharge: 10/26/24
Total time spent discharging patient (in min): 35
-
Pending Results: No
Hospital Course
Mr. Fabian is a 78-year-old male with medical history of CAD status post CABG and subsequent PCI, CKD stage IIIa, emphysema/interstitial lung disease, neurogenic bladder with chronic Cummins, and Alzheimer's dementia who presented with chest pain,
shortness of breath, and nausea with vomiting. He was found to have an NSTEMI with troponin significantly uptrending and ongoing dyspnea. He was initially started on IV heparin drip and antiplatelet therapy. He was evaluated by cardiology and
deemed to be a very poor candidate for invasive management. After goals of care discussion with his family decision was made to transition to comfort care. He was admitted to inpatient hospice. He on 10/25/2024 at 8:50 PM.
Discharge Plan
-
Patient Disposition:
Date/Time
Date/Time: 10/25/24 20:50
Discharge Date and Time
Discharge Date/Time: 10/26/24 00:58
Print Language: PASHTO
== END 2024-10-25 20:50 | disposition expired | DRG 951 ==
LOC: 2 NORTH 15:30
PROVIDERS: ADMITTING PHYSICIAN Internal Medicine
DX: Z51.5 Encounter for palliative care (principal); I21.4 Non-ST elevation (NSTEMI) myocardial infarction; I50.21 Acute systolic (congestive) heart failure; J84.9 Interstitial pulmonary disease, unspecified; Z66 Do not resuscitate; F02.80 Dementia in other diseases classified elsewhere, unspecified severity, without behavioral disturbance, psychotic disturbance, mood disturbance, and anxiety; G30.9 Alzheimer's disease, unspecified; I25.10 Atherosclerotic heart disease of native coronary artery without angina pectoris; J43.9 Emphysema, unspecified; N18.31 Chronic kidney disease, stage 3a; N31.9 Neuromuscular dysfunction of bladder, unspecified; Z95.1 Presence of aortocoronary bypass graft